=== PATIENT | female | born 1955 | race Caucasian/White ===

== ENCOUNTER 2017-07-14 10:22 | Inpatient (IN) ==
[2017-07-14] MEDS ORDERED: Ipratropium/Albuterol Neb 3 ML IH ONE (10:25)
--- NOTE | 2017-07-14 10:29 | Emergency Department Note ---
Disposition Clinical Impression: Congestive heart failure Qualifiers: Congestive heart failure type: unspecified Congestive heart failure chronicity : acute on chronic Qualified Code(s): I50.9 - Heart failure, unspecified Dyspnea Qualifiers: Dyspnea type: unspecified Qualified Code(s): R06.00 - Dyspnea, unspecified Disposition: Admitted As Inpatient Condition: Fair Referrals: Jimy Fitzgerald MD [Primary Care Provider] - Forms: ED Satisfaction Letter Time of Disposition: 12:01 SOB HPI - General Chief Complaint: ED Shortness of Breath/Dyspnea Stated Complaint: FAVIAN, shoulder pain Time Seen by Provider: 07/14/17 10:25 Source: patient, EMS Mode of arrival: EMS Limitations: no limitations Nursing Notes Reviewed: Yes Vital Signs Reviewed: Yes - History of Present Illness 62-year-old who comes in complaining of increasing shortness of breath. She is at the [facility] and uses inhalers been using her rescue inhaler more often. Patient has a history of chronic respiratory failure and is on oxygen. 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 Severity: moderate Consistency/Duration: constant Improves with: nothing Worsens with: exertion Known history of: other (Chronic respiratory failure) Associated symptoms: Reports: other (Shoulder pain) Treatment prior to arrival: oxygen (Patient's normally on 3 L was turned up to 4.) - Related Data Home Medications Medication Instructions Recorded Confirmed Baclofen [Lioresal] 10 mg PO TID 01/22/15 05/14/16 Diltiazem HCl [Diltiazem 24Hr Cd] 180 mg PO DAILY 01/22/15 05/14/16 Gabapentin [Neurontin] 200 mg PO TID 01/22/15 05/14/16 Acetaminophen [Tylenol] 325 mg PO Q6HR PRN 01/18/16 05/14/16 Albuterol Sulfate [Ventolin Hfa] 2 puff IH Q4H PRN 01/18/16 05/14/16 Lactulose 20 gm PO DAILY PRN 01/18/16 05/14/16 Loratadine [Claritin] 10 mg PO DAILY 01/18/16 05/14/16 Na Phos,M-B/Na Phos,Di-Ba [Pure & 133 ml RC DAILY PRN 01/18/16 05/14/16 Gentle Saline Enema] Pioglitazone HCl/Glimepiride 1 tab PO DAILY 01/18/16 05/14/16 [Duetact 30-2 mg Tablet] Ranitidine HCl [Heartburn Relief] 150 mg PO DAILY 01/18/16 05/14/16 Tamsulosin HCl [Flomax] 0.4 mg PO QPM 01/18/16 05/14/16 Terbinafine HCl [Antifungal] 1 appl TP BID 01/18/16 05/14/16 Glimepiride [Amaryl] 2 mg PO DAILY 05/14/16 05/14/16 Rivaroxaban [Xarelto] 15 mg PO DAILY 05/14/16 05/14/16 Tamsulosin [Flomax] 0.4 mg PO DAILY 05/14/16 05/14/16 Previous Rx's Medication Instructions Recorded Allopurinol [Zyloprim 300 MG] 300 mg PO DAILY tablet 10/08/15 Docusate [Colace] 200 mg PO BID capsule 10/08/15 Furosemide [Lasix] 60 mg PO BIDDIURETIC tablet 10/08/15 FentaNYL PATCH [Duragesic] 25 mcg TD Q72H #3 patch.td72 01/22/16 Sulfamethoxazole/Trimeth DS 1 each PO BID #14 tablet 11/21/16 [Bactrim DS] Allergies Allergy/AdvReac Type Severity Reaction Status Date / Time INDOCET AdvReac Hives Uncoded 11/21/16 00:41 All systems ED: reviewed and negative except as stated. Constitutional: Denies: fever, chills, weakness, weight change Eyes: Denies: eye pain, eye discharge, vision change ENT ED: Denies: ear pain, throat pain, dental pain, hearing loss, epistaxis, congestion, dysphagia Cardiovascular: Reports: chest pain, dyspnea on exertion. Denies: palpitations , edema, syncope Respiratory: Denies: cough, dyspnea, wheezes, hemoptysis, stridor Gastrointestinal: Denies: abdominal pain, nausea, vomiting, diarrhea, constipation, hematemesis, melena, hematochezia Genitourinary: Denies: dysuria, frequency, hematuria, discharge Musculoskeletal: Reports: arthralgia. Denies: back pain, neck pain, myalgia Integumentary: Denies: rash, abrasion, lesions Neurological: Denies: headache, weakness, numbness, paresthesias, confusion, abnormal gait, vertigo Psychiatric: Denies: anxiety, depression, suicidal thoughts, homicidal thoughts , auditory hallucinations, visual hallucinations Endocrine: Denies: fatigue Hematological/Lymphatic: Denies: easy bleeding, easy bruising Allergic/Immunologic: Denies: facial swelling, urticaria Past Medical History - Past Medical History Medical history: Reports: atrial fibrillation, diabetes, GERD, hypertension, pulmonary embolus, renal disease, other Surgical history: Reports: hysterectomy, knee replacement Psychiatric history: Reports: anxiety, depression - Social History Smoking Status: Never smoker Smokeless Tobacco Status: No Alcohol use: Reports: none Drug use: Reports: none Physical Exam - General Limitations: no limitations General appearance: alert, in no apparent distress - Head Head exam: atraumatic, normocephalic, normal inspection - Eye Eye exam: Present: normal appearance, PERRL, EOMI - ENT ENT exam: normal exam, normal oropharynx, mucous membranes moist - Neck Neck exam: Present: normal inspection, full ROM, trachea midline - Chest Chest inspection: Present: normal inspection, symmetric chest wall rise - Respiratory Respiratory exam: Present: normal lung sounds bilaterally - Cardiovascular Cardiovascular exam: Present: regular rate, normal rhythm, normal heart sounds - Abdominal Exam Abdominal exam: Present: soft, Non-Tender. Absent: tenderness, distention, guarding, rebound, rigidity - Extremities Exam Extremities exam: Present: normal inspection, full ROM. Absent: tenderness, pedal edema - Expanded Lower Extremity Exam Gait: observed and normal - Back Exam Back exam: Present: normal inspection, full ROM. Absent: tenderness - Neurological Exam Neurological exam: Present: alert, oriented X3 - Psychiatric Psychiatric exam: Present: normal affect, normal mood - Skin Skin exam: Present: warm, dry, intact, normal color Course - Reevaluation(s) Reevaluation #1: 22-year-old with increasing dyspnea and swelling. Chest x-ray shows CHF. Patient will be admitted for further evaluation and treatment. Time: 12:00 - Consultations Consultation #1: Discussed with Alfredo Montoya, admit Time: 13:08 Vital Signs Temperature 97.9 F 07/14/17 10:25 Pulse Rate 77 07/14/17 10:25 Respiratory Rate 17 07/14/17 10:25 Blood Pressure 154/71 07/14/17 10:25 O2 Sat by Pulse Oximetry 96 07/14/17 10:25 Temperature 97.9 F 07/14/17 10:25 Pulse Rate 77 07/14/17 10:25 Respiratory Rate 17 07/14/17 10:25 Blood Pressure 154/71 07/14/17 10:25 O2 Sat by Pulse Oximetry 99 07/14/17 12:23 Oxygen Delivery Oxygen Delivery Nasal Cannula Shortness of Breath/Dyspnea - Lab Data Result diagrams: 07/14/17 10:43 07/14/17 10:43 Lab Results 07/14/17 07/14/17 07/14/17 Range/Units 10:43 10:43 10:43 WBC 5.8 (4.3-11.1) K/mcL RBC 3.82 (3.82-4.97) M/mcL Hgb 11.1 L (11.5-15.4) g/dL Hct 37.5 (35.3-44.9) % MCV 98.2 (83.0-100.0) fL MCH 29.1 (28.0-33.3) pg MCHC 29.6 L (31.6-35.5) g/dL RDW 15.0 H (11.5-14.5) % Plt Count 273 (140-400) K/mcL MPV 10.7 (9.4-12.4) fL Immature Gran % 1.6 (0-4) % Seg Neutrophils % 52.6 % Lymphocytes % 32.5 % Monocytes % 8.2 % Eosinophils % 4.2 % Basophils % 0.9 % Neutrophils # 3.0 (1.6-8.9) K/mcL Lymphocytes # 1.9 (0.6-4.6) K/mcL Monocytes # 0.5 (0.0-1.3) K/mcL Eosinophils # 0.2 (0.0-0.6) K/mcL Basophils # 0.1 (0.0-0.2) K/mcL ABG pH (7.32-7.45) pH Units ABG pCO2 (35-45) mmHg ABG pO2 (85-104) mmHg ABG HCO3 (21-27) mEq/L ABG Total CO2 (20-26) mEq/L ABG O2 Saturation (95-98) % ABG Base Excess (-2 to 3) mEq/L Sodium 130 L (136-145) mEq/L Potassium 5.4 H (3.5-5.1) mEq/L Chloride 88 L (98-107) mEq/L Carbon Dioxide 41 H* (23-29) mEq/L BUN 27 H (8-23) mg/dL Creatinine 1.05 (0.60-1.20) mg/dL Est GFR ( Amer) > 60 (> 60) Est GFR (Non-Af Amer) 53 L (> 60) BUN/Creatinine Ratio 26 (6-26) Glucose 240 H (70-105) mg/dL Calculated Osmolality 283 (280-300) Lactic Acid 0.7 (0.5-2.2) mmol/L Calcium 8.9 (8.6-10.3) mg/dL Troponin I (< 0.04) ng/mL B-Natriuretic Peptide (Less than 100) pg/mL Person Notif of Crit 07/14/17 07/14/17 07/14/17 Range/Units 10:43 10:43 12:28 WBC (4.3-11.1) K/mcL RBC (3.82-4.97) M/mcL Hgb (11.5-15.4) g/dL Hct (35.3-44.9) % MCV (83.0-100.0) fL MCH (28.0-33.3) pg MCHC (31.6-35.5) g/dL RDW (11.5-14.5) % Plt Count (140-400) K/mcL MPV (9.4-12.4) fL Immature Gran % (0-4) % Seg Neutrophils % % Lymphocytes % % Monocytes % % Eosinophils % % Basophils % % Neutrophils # (1.6-8.9) K/mcL Lymphocytes # (0.6-4.6) K/mcL Monocytes # (0.0-1.3) K/mcL Eosinophils # (0.0-0.6) K/mcL Basophils # (0.0-0.2) K/mcL ABG pH 7.25 L (7.32-7.45) pH Units ABG pCO2 100 H* (35-45) mmHg ABG pO2 78 L (85-104) mmHg ABG HCO3 44 H (21-27) mEq/L ABG Total CO2 47 H (20-26) mEq/L ABG O2 Saturation 92 L (95-98) % ABG Base Excess 12 H (-2 to 3) mEq/L Sodium (136-145) mEq/L Potassium (3.5-5.1) mEq/L Chloride (98-107) mEq/L Carbon Dioxide (23-29) mEq/L BUN (8-23) mg/dL Creatinine (0.60-1.20) mg/dL Est GFR ( Amer) (> 60) Est GFR (Non-Af Amer) (> 60) BUN/Creatinine Ratio (6-26) Glucose (70-105) mg/dL Calculated Osmolality (280-300) Lactic Acid (0.5-2.2) mmol/L Calcium (8.6-10.3) mg/dL Troponin I < 0.03 (< 0.04) ng/mL B-Natriuretic Peptide 261 H (Less than 100) pg/mL Person Notif of Ale GALLO - EKG Data EKG attestation: Yes I reviewed and interpreted this EKG. EKG shows normal: Reports: sinus rhythm Rate: Reports: normal Rhythm: Reports: NSR Interpretation: Reports: no acute changes, nonspecific ST-T wave changes
[2017-07-14 10:53] LABS: Basophils # 0.1 K/mcL (0.0-0.2); Basophils % 0.9 %; Eosinophils # 0.2 K/mcL (0.0-0.6); Eosinophils % 4.2 %; Hematocrit 37.5 % (35.3-44.9); Hemoglobin 11.1 g/dL (11.5-15.4); Immature Granulocytes % 1.6 % (0-4); Lymphocytes # 1.9 K/mcL (0.6-4.6); Lymphocytes % 32.5 %; Mean Corpuscular HGB Conc 29.6 g/dL (31.6-35.5); Mean Corpuscular Hemoglobin 29.1 pg (28.0-33.3); Mean Corpuscular Volume 98.2 fL (83.0-100.0); Mean Platelet Volume 10.7 fL (9.4-12.4); Monocytes # 0.5 K/mcL (0.0-1.3); Monocytes % 8.2 %; Platelet Count 273 K/mcL (140-400); Red Blood Count 3.82 M/mcL (3.82-4.97); Segmented Neutrophils % 52.6 %
[2017-07-14 11:17] LABS: BUN/Creatinine Ratio 26 (6-26); Blood Urea Nitrogen 27 mg/dL (8-23); Calcium 8.9 mg/dL (8.6-10.3); Carbon Dioxide 41 mEq/L (23-29); Chloride 88 mEq/L (98-107); Glucose 240 mg/dL (70-105); Osmolality,Calculated 283 (280-300); Potassium 5.4 mEq/L (3.5-5.1); Sodium 130 mEq/L (136-145); eGFR For African Americans > 60 (> 60); eGFR For Non-African Americans 53 (> 60)
[2017-07-14] MEDS ORDERED: Furosemide 40 MG/4 ML VIAL IVP ONE (11:59)
[2017-07-14 12:34] LABS: ABG Base Excess 12 mEq/L (-2 to 3); ABG HCO3 44 mEq/L (21-27); ABG Oxygen Saturation 92 % (95-98); ABG PCO2 100 mmHg (35-45); ABG PH 7.25 pH Units (7.32-7.45); ABG PO2 78 mmHg (85-104); ABG TCO2 47 mEq/L (20-26)
--- NOTE | 2017-07-14 14:47 | Internal Med History&Physical ---
Date of Encounter: 07/14/17 Time of Encounter: 14:00 Assessment and Plan (1) Acute on chronic respiratory failure with hypoxia and hypercapnia Current visit: Yes Status: Acute -Patient reports of chronic O2 respiratory failure usually on 3-5 L -PH on admission was 7.25, CO2 100 and O2 78 -Will continue BiPAP initiated in the ER and monitor ABGs. (2) Congestive heart failure Current visit: Yes Status: Acute -Patient reported of shortness of breath for approximately one week in addition to generalized increased swelling (upper/lower extremity). -The physician at the [facility] increased Lasix from 60 twice daily to 80 twice daily with no improvement in symptoms -In the ER, patient was found to have vascular congestion on chest x-ray in addition to elevated BNP. -Echocardiogram on 01/2016 showed LVEF grossly low normal at 50% of atypical subjective motion consistent of unclear etiology in addition there is also moderate pulmonary hypertension and mild aortic sclerosis suggested by Doppler with an estimated RV SP of 59 mmHG. -Will continue IV diuresis and order echocardiogram; will also discontinue pioglitazone/glimipiride Qualifiers: Congestive heart failure type: unspecified Congestive heart failure chronicity: acute on chronic Qualified Code(s): I50.9 - Heart failure, unspecified (3) DM renal manif type II, uncontrolled Current visit: No Status: Acute -Blood glucose 240 on admission -Will discontinue pioglitazone/glimipiride due to exacerbation of heart failure above. 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: with keno terminal operator use Chronic kidney disease stage: stage 3 (moderate) Qualified Code(s): E11.22 - Type 2 diabetes mellitus with diabetic chronic kidney disease; E11.65 - Type 2 diabetes mellitus with hyperglycemia; N18.3 - Chronic kidney disease, stage 3 (moderate) ; Z79.4 - long-term (current) use of insulin (4) NICOL (obstructive sleep apnea) Current visit: No Status: Acute -Will continue BiPAP daily at bedtime (5) History of pulmonary embolism Current visit: No Status: Chronic -Will continue Xarelto (6) Morbid obesity with BMI of 70 and over, adult Current visit: No Status: Acute -Patient is bedbound due to morbid obesity -Lifestyle modifications (7) DVT prophylaxis Current visit: No Status: Acute -On Xarelto as above Internal Medicine - H&P: HPI Chief complaint: Shortness of breath Admitted From: Long-term Nursing Facility Plans for Post Hospital Care: Transfer Nursing Home Care History of present illness: Patient is a 62-year-old female with past medical history significant for heart failure, atrial fibrillation, chronic respiratory failure, hypertension, diabetes and morbid obesity who presented to the ER on 07/14/17 due to shortness of breath. Patient reports of shortness of breath for approximately one week in addition to generalized increased swelling (upper/lower extremity). The physician at the [facility] increased Lasix from 60 twice daily to 80 twice daily with no improvement in symptoms so was sent to the ER for further evaluation. Patient reports of taking Lasix daily as prescribed and has been adherent to [facility] diet/food and has limited her fast food. In the ER, patient was found to have vascular congestion on chest x-ray in addition to elevated BNP. Patient was also found to be an acute on chronic hypoxic/hypercapnic respiratory failure. Patient was given 40 mg of Lasix IV 1 in the ER in addition to a treatment of DuoNeb and was started on BiPAP. Patient will be admitted to the medical surgical floor for acute on chronic heart failure and acute on chronic hypoxic/hypercapnic respiratory failure. Past Med Surg Social Fam HX - Past Medical History Medical history: atrial fibrillation, diabetes, GERD, hypertension, pulmonary embolus, renal disease, other Psychiatric history: anxiety, depression - Past Surgical History Surgical History: hysterectomy, knee replacement - Social History Smoking Status: Never smoker Smokeless Tobacco Status: No Alcohol use: none Drug use: none - Family History Father Hx Family Cardiac Disorders: Yes ([place]) Hx Family Respiratory Disorders: Yes (Emphysema) Hx Family Cancer: No Hx Family GI Disorders: No Hx Family Endocrine Disorder: No Hx Family Neuromuscular Disorders: No Hx Family Neurologic Disorders: No Hx Family HEENT Disorders: No Hx Family Autoimmune Disorders: No Mother Hx Family Cardiac Disorders: No Hx Family Respiratory Disorders: Yes (Lung cancer) Hx Family Cancer: Yes (Small cell carcinoma) Hx Family GI Disorders: No Hx Family Endocrine Disorder: No Hx Family Neuromuscular Disorders: No Hx Family Neurologic Disorders: No Hx Family HEENT Disorders: No Hx Family Autoimmune Disorders: No Internal Medicine - H&P: Meds Baclofen [Lioresal] 10 mg PO TID 01/22/15 [History] Diltiazem HCl [Diltiazem 24Hr Cd] 180 mg PO DAILY 01/22/15 [History] Gabapentin [Neurontin] 200 mg PO TID 01/22/15 [History] Allopurinol [Zyloprim 300 MG] 300 mg PO DAILY tablet 10/08/15 [Rx] Docusate [Colace] 200 mg PO BID capsule 10/08/15 [Rx] Furosemide [Lasix] 60 mg PO BIDDIURETIC tablet 10/08/15 [Rx] Acetaminophen [Tylenol] 325 mg PO Q6HR PRN 01/18/16 [History] Albuterol Sulfate [Ventolin Hfa] 2 puff IH Q4H PRN 01/18/16 [History] Lactulose 20 gm PO DAILY PRN 01/18/16 [History] Loratadine [Claritin] 10 mg PO DAILY 01/18/16 [History] Pioglitazone HCl/Glimepiride [Duetact 30-2 mg Tablet] 1 tab PO DAILY 01/18/16 [ History] Ranitidine HCl [Heartburn Relief] 150 mg PO DAILY 01/18/16 [History] FentaNYL PATCH [Duragesic] 25 mcg TD Q72H #3 patch.td72 01/22/16 [Rx] Rivaroxaban [Xarelto] 15 mg PO DAILY 05/14/16 [History] Tamsulosin [Flomax] 0.4 mg PO DAILY 05/14/16 [History] 3 Allergy/AdvReac Type Severity Reaction Status Date / Time INDOCET AdvReac Hives Uncoded 11/21/16 00:41 All Systems PM: A 10-system review of systems was performed and is negative for pertinent findings except as documented above in the HPI. - Constitutional Vitals: Temp Pulse Resp BP Pulse Ox 97.7 F 64 20 136/68 94 07/14/17 14:32 07/14/17 14:32 07/14/17 14:32 07/14/17 14:32 07/14/17 14:32 General appearance: Present: A&O X 3, no acute distress, obese - Head Head exam: Present: atraumatic, normocephalic - Eye Eye exam: Present: EOMI. Absent: conjunctival injection - ENT ENT exam: Present: mucous membranes moist - Respiratory Respiratory exam: Absent: accessory muscle use, respiratory distress, wheezes - Cardiovascular Cardiovascular exam: Present: RRR, +S1, +S2. Absent: diastolic murmur, gallop, rubs, systolic murmur - GI/Abdominal GI/Abdominal exam: Present: normal bowel sounds (Obese) - Extremities Exam Extremities exam: Present: pedal edema - Expanded Lower Extremities Exam Upper Leg exam: Present: swelling Lower Leg exam: Present: swelling Ankle exam: Present: swelling Foot/Toe exam: Present: swelling - Neurological Exam Neurological exam: Present: CN II-XII intact - Psychiatric Psychiatric exam: Present: normal mood - Skin Additional comments: Fluid leakage and bilateral lower extremities with water blisters Internal Med - H&P Results - Labs CBC & Chem 7: 07/14/17 10:43 07/14/17 10:43
[2017-07-14] MEDS ORDERED: Naloxone 0.4 MG/ML INJ IVP PRN (15:01)
[2017-07-14] MEDS ORDERED: Lactulose 200 GM/300 ML (for enema) RC PRN (15:13)
[2017-07-14] MEDS ORDERED: D5% in Water 1,000 ML IVC PRN (15:15)
[2017-07-14] MEDS ORDERED: Dextrose Gel 15 GM/37.5 ML TUBE PO PRN ×2 (15:15)
[2017-07-14] MEDS ORDERED: *HR* Dextrose 50 % in Water (Syg) 50 ML SYRINGE IVP PRN (15:15)
[2017-07-14] MEDS ORDERED: Lactulose 200 GM, Sodium Chloride IRRigation 700 ML RC PRN (15:38)
[2017-07-14] MEDS: *HR* FentaNYL PATCH 25 MCG PATCH TD SCH (17:01)
[2017-07-14] MEDS: Insulin LISPRO 300 UNITS/3 ML VIAL SQ SCH (18:08)
[2017-07-14 18:54] LABS: ABG Base Excess 11 mEq/L (-2 to 3); ABG HCO3 42 mEq/L (21-27); ABG Oxygen Saturation 91 % (95-98); ABG PCO2 93 mmHg (35-45); ABG PH 7.27 pH Units (7.32-7.45); ABG PO2 75 mmHg (85-104); ABG TCO2 45 mEq/L (20-26)
[2017-07-14] MEDS: Acetaminophen 325 MG TABLET PO PRN (19:49)
[2017-07-14] MEDS: Baclofen 10 MG TABLET PO SCH (19:49)
[2017-07-14] MEDS: Gabapentin 100 MG CAPSULE PO SCH (19:50)
[2017-07-14] MEDS ORDERED: Furosemide 80 MG in 0.9 % Sodium Chloride 50 ML IVPB SCH (21:00)
[2017-07-14] MEDS ORDERED: Ketorolac 30 MG/ML VIAL IVP ONE (21:48)
[2017-07-15 00:47] LABS: Basophils % 0.6 %; Eosinophils # 0.2 K/mcL (0.0-0.6); Eosinophils % 3.4 %; Hematocrit 36.9 % (35.3-44.9); Immature Granulocytes % 1.3 % (0-4); Lymphocytes # 2.5 K/mcL (0.6-4.6); Lymphocytes % 34.8 %; Mean Corpuscular HGB Conc 29.8 g/dL (31.6-35.5); Mean Corpuscular Hemoglobin 29.5 pg (28.0-33.3); Mean Corpuscular Volume 98.9 fL (83.0-100.0); Mean Platelet Volume 11.1 fL (9.4-12.4); Monocytes # 0.5 K/mcL (0.0-1.3); Monocytes % 7.6 %; Neutrophils # 3.7 K/mcL (1.6-8.9); Platelet Count 264 K/mcL (140-400); Red Blood Count 3.73 M/mcL (3.82-4.97); Red Cell Distribution Width 14.9 % (11.5-14.5); Segmented Neutrophils % 52.3 %
[2017-07-15 01:18] LABS: VBG HCO3 41 mEq/L (21-27); VBG PCO2 74 mmHg (41-51); VBG PH 7.35 pH Units (7.32-7.42); VBG PO2 184 mmHg (25-50)
[2017-07-15 01:25] LABS: BUN/Creatinine Ratio 28 (6-26); Blood Urea Nitrogen 30 mg/dL (8-23); Calcium 9.1 mg/dL (8.6-10.3); Carbon Dioxide 41 mEq/L (23-29); Chloride 87 mEq/L (98-107); Glucose 215 mg/dL (70-105); Osmolality,Calculated 283 (280-300); Potassium 5.3 mEq/L (3.5-5.1); Sodium 130 mEq/L (136-145); eGFR For African Americans > 60 (> 60); eGFR For Non-African Americans 52 (> 60)
[2017-07-15] MEDS: Acetaminophen 325 MG TABLET PO PRN ×4 (02:38→23:32)
[2017-07-15] MEDS ORDERED: Perflutren Lipid Microsphere 1.3 ML in 0.9 % Sodium Chloride 8.7 ML IVP ONE (07:11)
[2017-07-15] MEDS: Famotidine 20 MG TABLET PO SCH (09:30)
[2017-07-15] MEDS: Baclofen 10 MG TABLET PO SCH ×3 (09:30→23:25)
[2017-07-15] MEDS: *HR* Rivaroxaban 15 MG TABLET PO SCH (09:30)
[2017-07-15] MEDS: Gabapentin 100 MG CAPSULE PO SCH ×3 (09:30→23:25)
[2017-07-15] MEDS: Insulin LISPRO 300 UNITS/3 ML VIAL SQ SCH ×4 (09:31→23:26)
[2017-07-15] MEDS: Diltiazem CD (24hr) 180 MG CAPSULE PO SCH (09:31)
[2017-07-15] MEDS: Loratadine 10 MG TABLET PO SCH (09:31)
[2017-07-15] MEDS: Furosemide 40 MG/4 ML VIAL IVP SCH ×2 (09:34→17:30)
--- NOTE | 2017-07-15 13:08 | Internal Med Progress Note ---
Date of Encounter: 07/15/17 Time of Encounter: 12:46 - Assessment and plan (1) Acute on chronic respiratory failure with hypoxia and hypercapnia Current Visit: Yes Status: Acute Assessment and plan: likely multifactorial (Obesity hypoventilation syndrome, CHF decompensation) will continue bipap support, compliance education provided IV diuresis monitor I/Os, daily weights fluid restriction diet will continue to closely monitor (2) CHF exacerbation Current Visit: Yes Status: Acute Assessment and plan: 2D echo reported LVEF of 50% with moderate LV diastolic dysfunction moderately dilated LV mild MR, Mild TR started on lisinopril 2.5mg PO qd will closely monitor BP continue IV diuresis Qualifiers: Congestive heart failure type: diastolic Qualified Code(s): I50.33 - Acute on chronic diastolic (congestive) heart failure (3) DM renal manif type II, uncontrolled Current Visit: No Status: Chronic Assessment and plan: continue sliding scale insulin algorithm monitor FS and BG ADA diet 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 Chronic kidney disease stage: stage 3 (moderate) Qualified Code(s): E11.22 - Type 2 diabetes mellitus with diabetic chronic kidney disease; E11.65 - Type 2 diabetes mellitus with hyperglycemia; N18.3 - Chronic kidney disease, stage 3 (moderate) ; Z79.4 - senior living (current) use of insulin (4) DVT prophylaxis Current Visit: No Status: Acute Assessment and plan: on Xarelto (5) History of pulmonary embolism Current Visit: No Status: Chronic Assessment and plan: continue xarelto (6) Hyperkalemia Current Visit: No Status: Acute Assessment and plan: improved from previous day no EKG changes reported will closely monitor (7) Hypoventilation associated with obesity syndrome Current Visit: No Status: Chronic (8) Morbid obesity with BMI of 70 and over, adult Current Visit: No Status: Chronic (9) NICOL (obstructive sleep apnea) Current Visit: No Status: Chronic - Subjective Interval history: Patient is a 62y/o female admitted for acute on chronic respiratory failure with hypoxia and hypercapnia, and CHF exacerbation pt seen and examined at bedside. Pt is bedbound at baseline due to morbidly obese body habitus She is noted to have worsening of hypercapnia and is noncompliant with bipap support - Constitutional Vitals: Temp Pulse Resp BP Pulse Ox 97.9 F 74 16 156/75 93 01/31/18 12:06 07/15/17 12:06 07/15/17 12:06 07/15/17 12:06 07/15/17 12:06 General appearance: Present: A&O X 3, morbidly obese, no acute distress, answers questions appropriately - Head Head exam: Present: atraumatic, normocephalic - Eye Eye exam: Present: conjuntiva pink, sclera anicteric - Respiratory Respiratory exam: Present: decreased breath sounds. Absent: wheezes - Cardiovascular Cardiovascular exam: Present: RRR, +S1, +S2 - GI/Abdominal GI/Abdominal exam: Present: normal bowel sounds, soft, no peritoneal signs. Absent: distended, tenderness - Extremities Exam Extremities exam: Present: warm, radial pulses palpable and symmetrical. Absent : calf tenderness (bilateral LE chronic venous stasis ) - Neurological Exam Neurological exam: Present: alert, oriented X3 - Psychiatric Psychiatric exam: Present: normal affect, normal mood Internal Medicine: Result - Labs CBC & Chem 7: 07/15/17 00:21 07/15/17 00:21 Labs: Short CBC 07/15/17 Range/Units 00:21 WBC 7.1 (4.3-11.1) K/mcL Hgb 11.0 L (11.5-15.4) g/dL Hct 36.9 (35.3-44.9) % Plt Count 264 (140-400) K/mcL Neutrophils # 3.7 (1.6-8.9) K/mcL BMP 07/15/17 00:21 Sodium 130 L Potassium 5.3 H Chloride 87 L Carbon Dioxide 41 H* BUN 30 H Creatinine 1.07 Glucose 215 H Calcium 9.1 - ABG Interpretation ABG results: ABG ABG pH 7.27 pH Units (7.32-7.45) L 07/14/17 18:48 ABG pCO2 93 mmHg (35-45) H* 07/14/17 18:48 ABG pO2 75 mmHg (85-104) L 07/14/17 18:48 ABG O2 Saturation 91 % (95-98) L 07/14/17 18:48 - Impressions Impressions Echocardiogram 07/15/17 15:11 Impressions: Technically challenging due to body habitus. LVEF 50%. Definity echo contrast was used. Moderate left ventricular diastolic dysfunction. Moderately dilated left ventricle. RV is suboptimally visualized. Mild mitral regurgitation. Mild tricuspid regurgitation. At least mild pulmonary hypertension by TR gradient, 39 mmHg. The IVC is not well evaluated. Left Ventricular Wall Motion: Rest Echo Findings All wall segments showed normal motion. Findings: Study Quality * Technically challenging due to body habitus. ECG Findings * Normal sinus rhythm. Left Ventricle * LVEF 50%. * Moderate left ventricular diastolic dysfunction. * Definity echo contrast was used. * Moderately dilated left ventricle. Right Ventricle * RV is suboptimally visualized. Left Atrium * Normal left atrial size. Right Atrium * Normal right atrial size. Mitral Valve * Normal mitral valve structure. * No mitral stenosis. * Mild mitral regurgitation. Aortic Valve * No aortic regurgitation. * Aortic valve not well visualized. * No aortic stenosis. Tricuspid Valve * Tricuspid valve not well visualized. * Mild tricuspid regurgitation. Pulmonic Valve * Pulmonic valve is not well visualized. * No pulmonic stenosis. * No pulmonic regurgitation. Pulmonary Artery * Pulmonary artery not well visualized. Aorta * Not well visualized. Pericardium * There is no pericardial effusion present. Interatrial Septum * Interatrial septum not well evaluated. IVC * The IVC is not well evaluated. Consult Discharge Plan - Plan Referrals: Jimy Fitzgerald MD [Primary Care Provider] -
--- NOTE | 2017-07-15 14:06 | Electrocardiograph Report ---
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
[2017-07-16 04:47] LABS: Basophils % 0.7 %; Eosinophils # 0.2 K/mcL (0.0-0.6); Eosinophils % 3.7 %; Hematocrit 32.8 % (35.3-44.9); Hemoglobin 9.7 g/dL (11.5-15.4); Immature Granulocytes % 0.7 % (0-4); Lymphocytes # 2.1 K/mcL (0.6-4.6); Lymphocytes % 34.7 %; Mean Corpuscular HGB Conc 29.6 g/dL (31.6-35.5); Mean Corpuscular Volume 98.2 fL (83.0-100.0); Mean Platelet Volume 10.9 fL (9.4-12.4); Monocytes # 0.5 K/mcL (0.0-1.3); Monocytes % 8.6 %; Neutrophils # 3.1 K/mcL (1.6-8.9); Platelet Count 240 K/mcL (140-400); Red Blood Count 3.34 M/mcL (3.82-4.97); Red Cell Distribution Width 14.7 % (11.5-14.5); Segmented Neutrophils % 51.6 %
[2017-07-16 05:16] LABS: BUN/Creatinine Ratio 31 (6-26); Blood Urea Nitrogen 31 mg/dL (8-23); Calcium 8.8 mg/dL (8.6-10.3); Carbon Dioxide 42 mEq/L (23-29); Chloride 89 mEq/L (98-107); Glucose 167 mg/dL (70-105); Osmolality,Calculated 290 (280-300); Phosphorous 4.2 mg/dL (2.7-4.5); Potassium 4.9 mEq/L (3.5-5.1); Sodium 135 mEq/L (136-145); eGFR For African Americans > 60 (> 60); eGFR For Non-African Americans 56 (> 60)
[2017-07-16 05:32] LABS: ABG Base Excess 14 mEq/L (-2 to 3); ABG HCO3 45 mEq/L (21-27); ABG Oxygen Saturation 88 % (95-98); ABG PCO2 92 mmHg (35-45); ABG PH 7.29 pH Units (7.32-7.45); ABG PO2 66 mmHg (85-104); ABG TCO2 47 mEq/L (20-26)
[2017-07-16] MEDS: Diltiazem CD (24hr) 180 MG CAPSULE PO SCH (09:01)
[2017-07-16] MEDS: Furosemide 40 MG/4 ML VIAL IVP SCH ×2 (09:01→16:25)
[2017-07-16] MEDS: Gabapentin 100 MG CAPSULE PO SCH ×3 (09:01→20:24)
[2017-07-16] MEDS: Loratadine 10 MG TABLET PO SCH (09:02)
[2017-07-16] MEDS: *HR* Rivaroxaban 15 MG TABLET PO SCH (09:02)
[2017-07-16] MEDS: Baclofen 10 MG TABLET PO SCH ×3 (09:02→20:25)
[2017-07-16] MEDS: Famotidine 20 MG TABLET PO SCH (09:02)
--- NOTE | 2017-07-16 09:13 | Internal Med Progress Note ---
Date of Encounter: 07/16/17 Time of Encounter: 08:35 - Assessment and plan (1) Acute on chronic respiratory failure with hypoxia and hypercapnia Current Visit: Yes Status: Acute Assessment and plan: likely multifactorial (Obesity hypoventilation syndrome, CHF decompensation) will continue bipap support, compliance education provided, Bipap support all day with breaks for meals and bipap at bedtime continue IV diuresis monitor I/Os, daily weights fluid restriction diet will continue to closely monitor (2) CHF exacerbation Current Visit: Yes Status: Acute Assessment and plan: 2D echo reported LVEF of 50% with moderate LV diastolic dysfunction moderately dilated LV mild MR, Mild TR continue Lisinopril 2.5mg PO qd will closely monitor BP continue IV diuresis Qualifiers: Congestive heart failure type: diastolic Qualified Code(s): I50.33 - Acute on chronic diastolic (congestive) heart failure (3) DM renal manif type II, uncontrolled Current Visit: No Status: Chronic Assessment and plan: continue sliding scale insulin algorithm monitor FS and BG ADA diet 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 mellitus terminal operator insulin use: with terminal operator use Chronic kidney disease stage: stage 3 (moderate) Qualified Code(s): E11.22 - Type 2 diabetes mellitus with diabetic chronic kidney disease; E11.65 - Type 2 diabetes mellitus with hyperglycemia; N18.3 - Chronic kidney disease, stage 3 (moderate) ; Z79.4 - [facility] (current) use of insulin (4) DVT prophylaxis Current Visit: No Status: Acute Assessment and plan: on Xarelto (5) History of pulmonary embolism Current Visit: No Status: Chronic Assessment and plan: continue xarelto (6) Hyperkalemia Current Visit: No Status: Resolved (7) Hypoventilation associated with obesity syndrome Current Visit: No Status: Chronic (8) Morbid obesity with BMI of 70 and over, adult Current Visit: No Status: Chronic (9) NICOL (obstructive sleep apnea) Current Visit: No Status: Chronic - Subjective Interval history: Patient is a 62y/o female admitted for acute on chronic respiratory failure with hypoxia and hypercapnia, and CHF exacerbation pt seen and examined at bedside. Pt is bedbound at baseline due to morbidly obese body habitus She is noted to have worsening of hypercapnia and remains noncompliant with bipap support I had a detailed discussion with the patient in regards to her advance directives. She became very emotional and states she would like to discuss with her family about her advance directives. Pt to remain full code at this time. Extensive counseling provided in regards to continuation and compliance of bipap support, pt willing to comply at this time Pt moved to [facility] for a bariatric bed - Constitutional Vitals: Temp Pulse Resp BP Pulse Ox 97.9 F 81 16 138/73 99 07/16/17 07:38 07/16/17 07:38 07/16/17 07:38 07/16/17 07:38 07/16/17 07:38 General appearance: Present: A&O X 3, morbidly obese, no acute distress, answers questions appropriately - Head Head exam: Present: atraumatic, normocephalic - Respiratory Respiratory exam: Present: decreased breath sounds. Absent: respiratory distress, wheezes - Cardiovascular Cardiovascular exam: Present: RRR, +S1, +S2. Absent: diastolic murmur, gallop, rubs, systolic murmur - GI/Abdominal GI/Abdominal exam: Present: normal bowel sounds, soft, no peritoneal signs. Absent: distended, tenderness - Extremities Exam Extremities exam: Present: warm, radial pulses palpable and symmetrical ( bilateral chronic venous stasis in lower extremities ). Absent: calf tenderness - Neurological Exam Neurological exam: Present: alert, oriented X3 - Psychiatric Psychiatric exam: Present: normal affect, normal mood Internal Medicine: Result - Labs CBC & Chem 7: 07/16/17 04:06 07/16/17 04:06 Labs: Short CBC 07/16/17 Range/Units 04:06 WBC 5.9 (4.3-11.1) K/mcL Hgb 9.7 L (11.5-15.4) g/dL Hct 32.8 L (35.3-44.9) % Plt Count 240 (140-400) K/mcL Neutrophils # 3.1 (1.6-8.9) K/mcL BMP 07/16/17 04:06 Sodium 135 L Potassium 4.9 Chloride 89 L Carbon Dioxide 42 H* BUN 31 H Creatinine 1.00 Glucose 167 H Calcium 8.8 - ABG Interpretation ABG results: ABG ABG pH 7.29 pH Units (7.32-7.45) L 07/16/17 05:25 ABG pCO2 92 mmHg (35-45) H* 07/16/17 05:25 ABG pO2 66 mmHg (85-104) L 07/16/17 05:25 ABG O2 Saturation 88 % (95-98) L 07/16/17 05:25 - Impressions Impressions Echocardiogram 07/15/17 15:11 Impressions: Technically challenging due to body habitus. LVEF 50%. Definity echo contrast was used. Moderate left ventricular diastolic dysfunction. Moderately dilated left ventricle. RV is suboptimally visualized. Mild mitral regurgitation. Mild tricuspid regurgitation. At least mild pulmonary hypertension by TR gradient, 39 mmHg. The IVC is not well evaluated. Left Ventricular Wall Motion: Rest Echo Findings All wall segments showed normal motion. Findings: Study Quality * Technically challenging due to body habitus. ECG Findings * Normal sinus rhythm. Left Ventricle * LVEF 50%. * Moderate left ventricular diastolic dysfunction. * Definity echo contrast was used. * Moderately dilated left ventricle. Right Ventricle * RV is suboptimally visualized. Left Atrium * Normal left atrial size. Right Atrium * Normal right atrial size. Mitral Valve * Normal mitral valve structure. * No mitral stenosis. * Mild mitral regurgitation. Aortic Valve * No aortic regurgitation. * Aortic valve not well visualized. * No aortic stenosis. Tricuspid Valve * Tricuspid valve not well visualized. * Mild tricuspid regurgitation. Pulmonic Valve * Pulmonic valve is not well visualized. * No pulmonic stenosis. * No pulmonic regurgitation. Pulmonary Artery * Pulmonary artery not well visualized. Aorta * Not well visualized. Pericardium * There is no pericardial effusion present. Interatrial Septum * Interatrial septum not well evaluated. IVC * The IVC is not well evaluated. Consult Discharge Plan - Plan Referrals: Jimy Fitzgerald MD [Primary Care Provider] -
[2017-07-16] MEDS: Insulin LISPRO 300 UNITS/3 ML VIAL SQ SCH ×4 (10:19→20:32)
[2017-07-16 11:41] LABS: Adenovirus Not Detected (Not Detect); Bordetella Pertussis Not Detected (Not Detect); Chlamydophila pneumoniae Not Detected (Not Detect); Coronavirus 229E Not Detected (Not Detect); Coronavirus HKU1 Not Detected (Not Detect); Coronavirus NL63 Not Detected (Not Detect); Coronavirus OC43 Not Detected (Not Detect); Human Metapneumovirus Not Detected (Not Detect); Human Rhinovirus/Enterovirus Not Detected (Not Detect); Influenza A Subtype 2009 H1 Not Detected (Not Detect); Influenza A Untypeable Not Detected (Not Detect); Influenza B Not Detected (Not Detect); Mycoplasma pneumoniae Not Detected (Not Detect); Parainfluenza Virus 1 Not Detected (Not Detect); Parainfluenza Virus 2 Not Detected (Not Detect); Parainfluenza Virus 3 Not Detected (Not Detect); Parainfluenza Virus 4 Not Detected (Not Detect); Respiratory Syncytial Virus Not Detected (Not Detect)
[2017-07-16] MEDS: Acetaminophen 325 MG TABLET PO PRN (11:53)
[2017-07-17] MEDS: Acetaminophen 325 MG TABLET PO PRN ×3 (00:51→15:59)
[2017-07-17 05:29] LABS: ABG Base Excess 18 mEq/L (-2 to 3); ABG HCO3 47 mEq/L (21-27); ABG Oxygen Saturation 75 % (95-98); ABG PCO2 88 mmHg (35-45); ABG PH 7.34 pH Units (7.32-7.45); ABG PO2 46 mmHg (85-104); ABG TCO2 50 mEq/L (20-26); Blood Gas Modality BiLevel
[2017-07-17 05:53] LABS: ABG Base Excess 18 mEq/L (-2 to 3); ABG HCO3 48 mEq/L (21-27); ABG Oxygen Saturation 96 % (95-98); ABG PCO2 89 mmHg (35-45); ABG PH 7.34 pH Units (7.32-7.45); ABG PO2 90 mmHg (85-104); ABG TCO2 51 mEq/L (20-26)
[2017-07-17 06:22] LABS: Calcium 9.3 mg/dL (8.6-10.3); Phosphorous 4.3 mg/dL (2.7-4.5)
[2017-07-17 06:25] LABS: Basophils % 0.6 %; Eosinophils # 0.2 K/mcL (0.0-0.6); Eosinophils % 2.8 %; Hematocrit 36.4 % (35.3-44.9); Immature Granulocytes % 0.6 % (0-4); Lymphocytes # 3.4 K/mcL (0.6-4.6); Lymphocytes % 47.5 %; Mean Corpuscular HGB Conc 30.2 g/dL (31.6-35.5); Mean Corpuscular Hemoglobin 29.5 pg (28.0-33.3); Mean Corpuscular Volume 97.6 fL (83.0-100.0); Mean Platelet Volume 11.4 fL (9.4-12.4); Monocytes # 0.6 K/mcL (0.0-1.3); Neutrophils # 2.8 K/mcL (1.6-8.9); Platelet Count 258 K/mcL (140-400); Red Blood Count 3.73 M/mcL (3.82-4.97); Red Cell Distribution Width 15.1 % (11.5-14.5); Segmented Neutrophils % 39.5 %
[2017-07-17] MEDS: Insulin LISPRO 300 UNITS/3 ML VIAL SQ SCH ×4 (08:12→21:42)
[2017-07-17] MEDS: Furosemide 40 MG/4 ML VIAL IVP SCH (08:12)
[2017-07-17] MEDS: Loratadine 10 MG TABLET PO SCH (08:13)
[2017-07-17] MEDS: *HR* Rivaroxaban 15 MG TABLET PO SCH (08:13)
[2017-07-17] MEDS: Gabapentin 100 MG CAPSULE PO SCH ×3 (08:14→21:42)
[2017-07-17] MEDS: Famotidine 20 MG TABLET PO SCH (08:14)
[2017-07-17] MEDS: Diltiazem CD (24hr) 180 MG CAPSULE PO SCH (08:14)
[2017-07-17] MEDS: Baclofen 10 MG TABLET PO SCH ×3 (08:14→21:42)
--- NOTE | 2017-07-17 11:55 | Internal Med Progress Note ---
Date of Encounter: 07/17/17 Time of Encounter: 10:40 - Assessment and plan (1) Acute on chronic respiratory failure with hypoxia and hypercapnia Current Visit: Yes Status: Acute Assessment and plan: likely multifactorial (Obesity hypoventilation syndrome, CHF decompensation) will continue bipap support, compliance education provided, Bipap support all day with breaks for meals and bipap at bedtime will switch to PO lasix this evening adding Prednisone 40mg PO qd monitor I/Os, daily weights (highly unlikely that patient's documented weights are accurate) fluid restriction diet will continue to closely monitor (2) CHF exacerbation Current Visit: Yes Status: Acute Assessment and plan: 2D echo reported LVEF of 50% with moderate LV diastolic dysfunction moderately dilated LV mild MR, Mild TR continue Lisinopril 2.5mg PO qd will closely monitor BP continue IV diuresis Qualifiers: Congestive heart failure type: diastolic Qualified Code(s): I50.33 - Acute on chronic diastolic (congestive) heart failure (3) DM renal manif type II, uncontrolled Current Visit: No Status: Chronic Assessment and plan: continue sliding scale insulin algorithm monitor FS and BG ADA diet 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 mellitus usp insulin use: with terminal system operator use Chronic kidney disease stage: stage 3 (moderate) Qualified Code(s): E11.22 - Type 2 diabetes mellitus with diabetic chronic kidney disease; E11.65 - Type 2 diabetes mellitus with hyperglycemia; N18.3 - Chronic kidney disease, stage 3 (moderate) ; Z79.4 - intermediate (current) use of insulin (4) DVT prophylaxis Current Visit: No Status: Acute Assessment and plan: on Xarelto (5) History of pulmonary embolism Current Visit: No Status: Chronic Assessment and plan: continue xarelto (6) Hyperkalemia Current Visit: No Status: Resolved (7) Hypoventilation associated with obesity syndrome Current Visit: No Status: Chronic (8) Morbid obesity with BMI of 70 and over, adult Current Visit: No Status: Chronic (9) NICOL (obstructive sleep apnea) Current Visit: No Status: Chronic - Subjective Interval history: Patient is a 62y/o female admitted for acute on chronic respiratory failure with hypoxia and hypercapnia, and CHF exacerbation pt seen and examined at bedside. Pt is bedbound at baseline due to morbidly obese body habitus Pt seen with niece present at bedside. Pt speaking to social science manager and niece in regards to establishing her POA and then further discuss advance directives. Pt states she has been compliant with her bipap and reports of feeling better compared to previous day. Will switch to PO lasix this evening and add low dose steroids given persistent respiratory distress. Tentative d/c in am if clinically stable. - Constitutional Vitals: Temp Pulse Resp BP Pulse Ox 98.4 F 92 20 128/52 97 07/17/17 11:31 07/17/17 11:31 07/17/17 11:31 07/17/17 11:31 07/17/17 11:31 General appearance: Present: A&O X 3, morbidly obese, no acute distress, answers questions appropriately - Head Head exam: Present: atraumatic, normocephalic - Eye Eye exam: Present: conjuntiva pink, sclera anicteric - Respiratory Respiratory exam: Present: decreased breath sounds. Absent: respiratory distress, wheezes - Cardiovascular Cardiovascular exam: Present: RRR, +S1, +S2. Absent: diastolic murmur, gallop, rubs, systolic murmur - GI/Abdominal GI/Abdominal exam: Present: normal bowel sounds, soft, no peritoneal signs. Absent: distended, tenderness - Extremities Exam Extremities exam: Present: warm, radial pulses palpable and symmetrical (b/l LE chronic venous stasis ). Absent: calf tenderness - Neurological Exam Neurological exam: Present: alert, oriented X3 - Psychiatric Psychiatric exam: Present: normal affect, normal mood Internal Medicine: Result - Labs CBC & Chem 7: 07/17/17 05:42 07/17/17 05:42 Labs: Short CBC 07/17/17 Range/Units 05:42 WBC 7.1 (4.3-11.1) K/mcL Hgb 11.0 L (11.5-15.4) g/dL Hct 36.4 (35.3-44.9) % Plt Count 258 (140-400) K/mcL Neutrophils # 2.8 (1.6-8.9) K/mcL BMP 07/17/17 05:42 Sodium 137 Potassium 5.0 Chloride 90 L Carbon Dioxide 43 H* BUN 35 H Creatinine 1.12 Glucose 195 H Calcium 9.3 - ABG Interpretation ABG results: ABG ABG pH 7.34 pH Units (7.32-7.45) 07/17/17 05:49 ABG pCO2 89 mmHg (35-45) H* 07/17/17 05:49 ABG pO2 90 mmHg (85-104) D 07/17/17 05:49 ABG O2 Saturation 96 % (95-98) 07/17/17 05:49 Consult Discharge Plan - Plan Referrals: Jimy Fitzgerald MD [Primary Care Provider] -
[2017-07-17] MEDS: predniSONE 20 MG TABLET PO SCH (15:57)
[2017-07-17] MEDS: Furosemide 40 MG TABLET PO SCH (16:59)
[2017-07-17] MEDS: *HR* FentaNYL PATCH 25 MCG PATCH TD SCH (16:59)
[2017-07-17] MEDS: *HR* HYDROcodone/Acet 5/325 mg TABLET PO PRN (23:04)
[2017-07-18] MEDS: Acetaminophen 325 MG TABLET PO PRN (02:42)
[2017-07-18 05:32] LABS: Basophils % 0.6 %; Hemoglobin 10.6 g/dL (11.5-15.4); Immature Granulocytes % 0.4 % (0-4); Lymphocytes # 1.3 K/mcL (0.6-4.6); Lymphocytes % 26.3 %; Mean Corpuscular HGB Conc 31.2 g/dL (31.6-35.5); Mean Corpuscular Hemoglobin 29.6 pg (28.0-33.3); Mean Platelet Volume 10.9 fL (9.4-12.4); Monocytes # 0.3 K/mcL (0.0-1.3); Monocytes % 5.1 %; Neutrophils # 3.4 K/mcL (1.6-8.9); Platelet Count 231 K/mcL (140-400); Red Blood Count 3.58 M/mcL (3.82-4.97); Red Cell Distribution Width 14.7 % (11.5-14.5); Segmented Neutrophils % 67.6 %
[2017-07-18 07:58] LABS: BUN/Creatinine Ratio 38 (6-26); Blood Urea Nitrogen 38 mg/dL (8-23); Calcium 9.3 mg/dL (8.6-10.3); Carbon Dioxide 45 mEq/L (23-29); Chloride 91 mEq/L (98-107); Glucose 267 mg/dL (70-105); Magnesium 2.1 mg/dL (1.6-2.6); Osmolality,Calculated 302 (280-300); Potassium 4.6 mEq/L (3.5-5.1); Sodium 137 mEq/L (136-145); eGFR For African Americans > 60 (> 60); eGFR For Non-African Americans 56 (> 60)
[2017-07-18] MEDS: Insulin LISPRO 300 UNITS/3 ML VIAL SQ SCH ×4 (08:57→21:25)
[2017-07-18] MEDS: Furosemide 40 MG TABLET PO SCH ×2 (08:58→21:23)
[2017-07-18] MEDS: predniSONE 20 MG TABLET PO SCH (08:58)
[2017-07-18] MEDS: Baclofen 10 MG TABLET PO SCH ×3 (08:58→21:24)
[2017-07-18] MEDS: Famotidine 20 MG TABLET PO SCH (08:58)
[2017-07-18] MEDS: Loratadine 10 MG TABLET PO SCH (08:58)
[2017-07-18] MEDS: Diltiazem CD (24hr) 180 MG CAPSULE PO SCH (08:59)
[2017-07-18] MEDS: *HR* Rivaroxaban 15 MG TABLET PO SCH (08:59)
[2017-07-18] MEDS: Gabapentin 100 MG CAPSULE PO SCH ×3 (08:59→21:23)
[2017-07-18] MEDS: *HR* HYDROcodone/Acet 5/325 mg TABLET PO PRN ×2 (09:16→15:18)
--- NOTE | 2017-07-18 09:51 | Pulmonology Consult Note ---
Date of Encounter: 07/19/17 Time of Encounter: 09:30 Assessment and Plan (1) Acute on chronic respiratory failure with hypoxia and hypercapnia Current Visit: Yes Status: Acute Patient has Acute on Chronic hypoxic and hypercapnic respiratory failure secondary to NICOL/OHS but the acute decline is due to exacerbation of CHF . To continue intermittent BIPAP whenever she sleeps . To continue diuresis as tolerated by primary team . To Keep SPO2 around 92-94% (2) CHF exacerbation Current Visit: Yes Status: Acute Patient has diastolic dysfunction with dilated Left atrium will continue diuresis as these could be the main cause for acute decompensation of his chronic hypercapnic respiratory failure Qualifiers: Congestive heart failure type: diastolic Qualified Code(s): I50.33 - Acute on chronic diastolic (congestive) heart failure (3) Morbid obesity with BMI of 70 and over, adult Current Visit: No Status: Chronic Patient will need outpatient evaluation for bariatric surgery (4) Obesity hypoventilation syndrome Current Visit: No Status: Acute To use the home settings but now her lung are fluid overloaded will change to 22/14 will repeat a gas in the morning after BIPAP usage (5) NICOL (obstructive sleep apnea) Current Visit: No Status: Chronic Patient has NICOL - To continue 22/14 for now and repeat the gas in the morning (6) History of pulmonary embolism Current Visit: No Status: Chronic On Xarelto History of Present Illness Consult date: 07/18/17 Requesting physician: Courtney Grubbs Reason for consult: dyspnea, abnormal CXR/CT, obstructive sleep apnea Chief complaint: Shortness of Breadth History of present illness: 62 year old female with past medical history significant for Super Morbid obesity , NICOL /OHS chronic hypercapnic respiratory failure , CHF , DM , HTN comes with shortness of breadth with CXR shows pulmonary vascular congestion and slight left sided pleural effusion getting treated for Exacerbation of congestive heart failure with diuresis pulmonary was consulted not improving acute on chronic hypercapnic respiratory failure . Patient on interview sitting comfortably in her bed not in any respiratory distress says she is feeling lot better denies any cough or sputum production , denies any chest pain or tightness or any palpitations, denies any head ache or any other focal neurological deficits . Past Med Surg Social Fam HX - Past Medical History Medical history: atrial fibrillation, diabetes, GERD, hypertension, pulmonary embolus, renal disease, other Psychiatric history: anxiety, depression - Past Surgical History Surgical History: hysterectomy, knee replacement - Social History Smoking Status: Never smoker Smokeless Tobacco Status: No Alcohol use: none Drug use: none - Family History Father Hx Family Cardiac Disorders: Yes ([place]) Hx Family Respiratory Disorders: Yes (Emphysema) Hx Family Cancer: No Hx Family GI Disorders: No Hx Family Endocrine Disorder: No Hx Family Neuromuscular Disorders: No Hx Family Neurologic Disorders: No Hx Family HEENT Disorders: No Hx Family Autoimmune Disorders: No Mother Name: Anni Reynoso Family Member Ethnicity: Non- Living Status: Age at : 78 Cause of : lung problem from methotraxate Hx Family Cardiac Disorders: No Hx Family Respiratory Disorders: Yes (Lung cancer) Hx Family Cancer: Yes (Small cell carcinoma) Hx Family GI Disorders: No Hx Family Genitourinary Disorders: No Hx Family Endocrine Disorder: No Hx Family Musculoskeletal Disorders: Yes (RA) Hx Family Neuromuscular Disorders: No Hx Family Neurologic Disorders: No Hx Family HEENT Disorders: No Hx Family Autoimmune Disorders: No Hx Family Reproductive Disorders: No Hx Family Psychosocial Disorders: No Hx Family Medical Disorders: No Medications and Allergies Baclofen [Lioresal] 10 mg PO TID 01/22/15 [History] Diltiazem HCl [Diltiazem 24Hr Cd] 180 mg PO DAILY 01/22/15 [History] Gabapentin [Neurontin] 200 mg PO TID 01/22/15 [History] Allopurinol [Zyloprim 300 MG] 300 mg PO DAILY tablet 10/08/15 [Rx] Docusate [Colace] 200 mg PO BID capsule 10/08/15 [Rx] Furosemide [Lasix] 60 mg PO BIDDIURETIC tablet 10/08/15 [Rx] Acetaminophen [Tylenol] 325 mg PO Q6HR PRN 01/18/16 [History] Albuterol Sulfate [Ventolin Hfa] 2 puff IH Q4H PRN 01/18/16 [History] Lactulose 20 gm PO DAILY PRN 01/18/16 [History] Loratadine [Claritin] 10 mg PO DAILY 01/18/16 [History] Pioglitazone HCl/Glimepiride [Duetact 30-2 mg Tablet] 1 tab PO DAILY 01/18/16 [ History] Ranitidine HCl [Heartburn Relief] 150 mg PO DAILY 01/18/16 [History] FentaNYL PATCH [Duragesic] 25 mcg TD Q72H #3 patch.td72 01/22/16 [Rx] Rivaroxaban [Xarelto] 15 mg PO DAILY 05/14/16 [History] Tamsulosin [Flomax] 0.4 mg PO DAILY 05/14/16 [History] 3 Allergy/AdvReac Type Severity Reaction Status Date / Time INDOCET AdvReac Hives Uncoded 11/21/16 00:41 All Systems: All other review of systems are negative Physical Examination Vital Signs: Vital Signs, Last 4 Hours Temp Pulse Resp BP Pulse Ox 07/18/17 07:08 97.8 F 73 18 155/73 97 Mallampati (class): 3 Auscultation: bilateral: diminished breath sounds (basilar diminished breadth sounds ) Gastrointestinal: other (very obese abdomen ) Extremities: edema Gait: other (limited range of motion in knee and elbow ) Results - Laboratory Findings CBC and BMP: 07/19/17 04:48 07/19/17 04:48 ABG ABG pH 7.34 pH Units (7.32-7.45) 07/17/17 05:49 ABG pCO2 89 mmHg (35-45) H* 07/17/17 05:49 ABG pO2 90 mmHg (85-104) D 07/17/17 05:49 ABG O2 Saturation 96 % (95-98) 07/17/17 05:49 Abnormal lab findings: Abnormal lab results RBC 3.58 M/mcL (3.82-4.97) L 07/18/17 05:22 Hgb 10.6 g/dL (11.5-15.4) L 07/18/17 05:22 Hct 34.0 % (35.3-44.9) L 07/18/17 05:22 MCHC 31.2 g/dL (31.6-35.5) L 07/18/17 05:22 RDW 14.7 % (11.5-14.5) H 07/18/17 05:22 ABG pCO2 89 mmHg (35-45) H* 07/17/17 05:49 ABG HCO3 48 mEq/L (21-27) H 07/17/17 05:49 ABG Total CO2 51 mEq/L (20-26) H 07/17/17 05:49 ABG Base Excess 18 mEq/L (-2 to 3) H 07/17/17 05:49 VBG pCO2 74 mmHg (41-51) H* 07/15/17 01:13 VBG pO2 184 mmHg (25-50) H 07/15/17 01:13 VBG HCO3 41 mEq/L (21-27) H 07/15/17 01:13 Chloride 91 mEq/L (98-107) L 07/18/17 06:56 Carbon Dioxide 45 mEq/L (23-29) H* 07/18/17 06:56 BUN 38 mg/dL (8-23) H 07/18/17 06:56 Est GFR (Non-Af Amer) 56 (> 60) L 07/18/17 06:56 BUN/Creatinine Ratio 38 (6-26) H 07/18/17 06:56 Glucose 267 mg/dL (70-105) H 07/18/17 06:56 POC Glucose 252 (58-89) H 07/18/17 07:13 Calculated Osmolality 302 (280-300) H 07/18/17 06:56 B-Natriuretic Peptide 261 pg/mL (Less than 100) H 07/14/17 10:43 - Clinical Findings Intake & Output: Intake & Output 07/17/17 07/18/17 07/18/17 23:59 07:59 15:59 Intake Total 832 / 832 700 / 700 240 / 240 Output Total 3925 / 3925 1900 / 1900 Balance -3093 / -3093 -1200 / -1200 240 / 240 Consult Discharge Plan - Plan Instructions: Heart Failure (DC), Sleep Apnea Syndrome (DC), Sleep Apnea Syndrome (GEN), Urinary Tract Infection in Women (DC), Cellulitis (DC), Cellulitis (GEN), Sepsis (DC) Referrals: Jimy Fitzgerald MD [Primary Care Provider] -
--- NOTE | 2017-07-18 12:52 | Internal Med Progress Note ---
Date of Encounter: 07/18/17 Time of Encounter: 12:49 - Assessment and plan (1) Acute on chronic respiratory failure with hypoxia and hypercapnia Current Visit: Yes Status: Acute Assessment and plan: likely multifactorial (Obesity hypoventilation syndrome, CHF decompensation) will continue bipap support, compliance education provided, Bipap support all day with breaks for meals and bipap at bedtime PO lasix BID Prednisone 40mg PO qd monitor I/Os, daily weights (highly unlikely that patient's documented weights are accurate) fluid restriction diet will continue to closely monitor Pulmonology evaluation requested (2) CHF exacerbation Current Visit: Yes Status: Acute Assessment and plan: 2D echo reported LVEF of 50% with moderate LV diastolic dysfunction moderately dilated LV mild MR, Mild TR continue Lisinopril 2.5mg PO qd will closely monitor BP continue IV diuresis Qualifiers: Congestive heart failure type: diastolic Qualified Code(s): I50.33 - Acute on chronic diastolic (congestive) heart failure (3) DM renal manif type II, uncontrolled Current Visit: No Status: Chronic Assessment and plan: continue sliding scale insulin algorithm monitor FS and BG ADA diet 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 mellitus mcc insulin use: with mcc use Chronic kidney disease stage: stage 3 (moderate) Qualified Code(s): E11.22 - Type 2 diabetes mellitus with diabetic chronic kidney disease; E11.65 - Type 2 diabetes mellitus with hyperglycemia; N18.3 - Chronic kidney disease, stage 3 (moderate) ; Z79.4 - USP (current) use of insulin (4) DVT prophylaxis Current Visit: No Status: Acute Assessment and plan: on Xarelto (5) History of pulmonary embolism Current Visit: No Status: Chronic Assessment and plan: continue xarelto (6) Hyperkalemia Current Visit: No Status: Resolved (7) Hypoventilation associated with obesity syndrome Current Visit: No Status: Chronic (8) Morbid obesity with BMI of 70 and over, adult Current Visit: No Status: Chronic (9) NICOL (obstructive sleep apnea) Current Visit: No Status: Chronic - Subjective Interval history: Patient is a 62y/o female admitted for acute on chronic respiratory failure with hypoxia and hypercapnia, and CHF exacerbation pt seen and examined at bedside. Pt is bedbound at baseline due to morbidly obese body habitus Pt seen with niece present at bedside. Pt remains noncompliant with bipap. She constantly has an excuse for not using the bipap. Extensive counseling provided about weight loss, pt keeps blaming the NH for her weight gain as the NH provides her with inappropriate food. Given worsening hypercapnia, Pulmonary evaluation requested - Constitutional Vitals: Temp Pulse Resp BP Pulse Ox 97.6 F 85 20 133/88 95 07/18/17 11:49 07/18/17 11:49 07/18/17 11:49 07/18/17 11:49 07/18/17 11:49 General appearance: Present: A&O X 3, morbidly obese, no acute distress, answers questions appropriately - Head Head exam: Present: atraumatic, normocephalic - Eye Eye exam: Present: conjuntiva pink, sclera anicteric - Respiratory Respiratory exam: Present: decreased breath sounds. Absent: respiratory distress, wheezes - Cardiovascular Cardiovascular exam: Present: RRR, +S1, +S2. Absent: diastolic murmur, gallop, rubs, systolic murmur - GI/Abdominal GI/Abdominal exam: Present: normal bowel sounds, soft, no peritoneal signs. Absent: distended, tenderness - Extremities Exam Extremities exam: Present: warm, radial pulses palpable and symmetrical. Absent : calf tenderness - Neurological Exam Neurological exam: Present: alert, oriented X3 - Psychiatric Psychiatric exam: Present: normal affect, normal mood Internal Medicine: Result - Labs CBC & Chem 7: 07/18/17 05:22 07/18/17 06:56 Labs: Short CBC 07/18/17 Range/Units 05:22 WBC 5.1 (4.3-11.1) K/mcL Hgb 10.6 L (11.5-15.4) g/dL Hct 34.0 L (35.3-44.9) % Plt Count 231 (140-400) K/mcL Neutrophils # 3.4 (1.6-8.9) K/mcL BMP 07/18/17 06:56 Sodium 137 Potassium 4.6 Chloride 91 L Carbon Dioxide 45 H* BUN 38 H Creatinine 1.00 Glucose 267 H Calcium 9.3 - ABG Interpretation ABG results: ABG ABG pH 7.34 pH Units (7.32-7.45) 07/17/17 05:49 ABG pCO2 89 mmHg (35-45) H* 07/17/17 05:49 ABG pO2 90 mmHg (85-104) D 07/17/17 05:49 ABG O2 Saturation 96 % (95-98) 07/17/17 05:49 Consult Discharge Plan - Plan Instructions: Heart Failure (DC), Sleep Apnea Syndrome (DC), Sleep Apnea Syndrome (GEN), Urinary Tract Infection in Women (DC), Cellulitis (DC), Cellulitis (GEN), Sepsis (DC) Referrals: Jimy Fitzgerald MD [Primary Care Provider] -
[2017-07-18] MEDS ORDERED: Insulin DETEMIR 100 UNIT/ML X5UNITS SQ SCH (21:00)
[2017-07-19] MEDS ORDERED: Lactulose Oral Soln 20 GM/30 ML UDC PO PRN (00:23)
[2017-07-19] MEDS: *HR* HYDROcodone/Acet 5/325 mg TABLET PO PRN ×4 (00:49→21:43)
[2017-07-19 05:16] LABS: Basophils % 0.5 %; Eosinophils % 0.5 %; Hematocrit 34.8 % (35.3-44.9); Hemoglobin 10.5 g/dL (11.5-15.4); Immature Granulocytes % 0.5 % (0-4); Lymphocytes # 2.1 K/mcL (0.6-4.6); Lymphocytes % 34.7 %; Mean Corpuscular HGB Conc 30.2 g/dL (31.6-35.5); Mean Corpuscular Hemoglobin 29.3 pg (28.0-33.3); Mean Corpuscular Volume 97.2 fL (83.0-100.0); Mean Platelet Volume 11.3 fL (9.4-12.4); Monocytes # 0.6 K/mcL (0.0-1.3); Monocytes % 9.8 %; Neutrophils # 3.2 K/mcL (1.6-8.9); Platelet Count 235 K/mcL (140-400); Red Blood Count 3.58 M/mcL (3.82-4.97); Red Cell Distribution Width 14.8 % (11.5-14.5)
[2017-07-19] MEDS: Artificial Tears SOLN 15 ML BOTTLE BOTH EYES SCH ×5 (05:19→21:44)
[2017-07-19 05:37] LABS: ABG Base Excess 17 mEq/L (-2 to 3); ABG HCO3 46 mEq/L (21-27); ABG Oxygen Saturation 96 % (95-98); ABG PCO2 81 mmHg (35-45); ABG PH 7.36 pH Units (7.32-7.45); ABG PO2 93 mmHg (85-104); ABG TCO2 49 mEq/L (20-26); Blood Gas Modality NC
[2017-07-19 05:50] LABS: BUN/Creatinine Ratio 41 (6-26); Blood Urea Nitrogen 43 mg/dL (8-23); Calcium 9.3 mg/dL (8.6-10.3); Carbon Dioxide 43 mEq/L (23-29); Chloride 90 mEq/L (98-107); Glucose 279 mg/dL (70-105); Osmolality,Calculated 305 (280-300); Potassium 4.5 mEq/L (3.5-5.1); Sodium 137 mEq/L (136-145); eGFR For African Americans > 60 (> 60); eGFR For Non-African Americans 53 (> 60)
[2017-07-19] MEDS: Insulin LISPRO 300 UNITS/3 ML VIAL SQ SCH ×4 (08:40→21:44)
[2017-07-19] MEDS: Furosemide 40 MG TABLET PO SCH ×2 (08:41→19:30)
[2017-07-19] MEDS: Famotidine 20 MG TABLET PO SCH (08:41)
[2017-07-19] MEDS: *HR* Rivaroxaban 15 MG TABLET PO SCH (08:41)
[2017-07-19] MEDS: Diltiazem CD (24hr) 180 MG CAPSULE PO SCH (08:41)
[2017-07-19] MEDS: Baclofen 10 MG TABLET PO SCH ×3 (08:42→21:43)
[2017-07-19] MEDS: predniSONE 20 MG TABLET PO SCH (08:42)
[2017-07-19] MEDS: Loratadine 10 MG TABLET PO SCH (08:42)
[2017-07-19] MEDS: Gabapentin 100 MG CAPSULE PO SCH ×3 (08:42→21:43)
--- NOTE | 2017-07-19 10:48 | Pulmonology Progress Note ---
Date of Encounter: 07/20/17 Time of Encounter: 10:00 Assessment and Plan (1) Acute on chronic respiratory failure with hypoxia and hypercapnia Current Visit: Yes Status: Acute Acute on chronic hypercapnic respiratory failure caused by acute on chronic diastolic heart failure . Patient tolerated BIPAP 22/14 did well on Gas exchange looked lot better. (2) CHF exacerbation Current Visit: Yes Status: Acute Acute on Chronic diastolic heart failure to continue diuresis as tolerated . Qualifiers: Congestive heart failure type: diastolic Qualified Code(s): I50.33 - Acute on chronic diastolic (congestive) heart failure (3) Morbid obesity with BMI of 70 and over, adult Current Visit: No Status: Chronic Patient wanted to get evaluated that she will be elligble for bariatric surgery . (4) Obesity hypoventilation syndrome Current Visit: No Status: Acute To continue BIPAP whenever she sleeps (5) NICOL (obstructive sleep apnea) Current Visit: No Status: Chronic Patient tolerated well BIPAP 22/14 with adequate gas exchange .. Will need to instruct the residential to change the pressure to 22/14 (6) History of pulmonary embolism Current Visit: No Status: Chronic To continue Xarelto Subjective Principal diagnosis: Acute exacerbation of diastolic heart failure Interval history: Patient is sitting on the chair says she is feeling better she is on with pressure that she used in the night not much shortness of breadth , denies any chest pain or tightness Objective PUL Vital signs: Last Vital Signs Temp 98.1 F 07/19/17 07:00 Pulse 90 07/19/17 07:00 Resp 16 07/19/17 09:09 BP 144/83 07/19/17 07:00 Pulse Ox 95 07/19/17 09:09 Auscultation: bilateral: diminished breath sounds (bilateral bibasilar crackles ), rales (scattered rales ) Cardiovascular: irregular rhythm Gastrointestinal: other (obese abdomen ) Extremities: other (chronic skin changes ) Results - Laboratory Findings CBC and BMP: 07/20/17 03:07 07/20/17 03:07 ABG ABG pH 7.36 pH Units (7.32-7.45) 07/19/17 05:23 ABG pCO2 81 mmHg (35-45) H* 07/19/17 05:23 ABG pO2 93 mmHg (85-104) 07/19/17 05:23 ABG O2 Saturation 96 % (95-98) 07/19/17 05:23 Abnormal lab findings: Abnormal lab results RBC 3.58 M/mcL (3.82-4.97) L 07/19/17 04:48 Hgb 10.5 g/dL (11.5-15.4) L 07/19/17 04:48 Hct 34.8 % (35.3-44.9) L 07/19/17 04:48 MCHC 30.2 g/dL (31.6-35.5) L 07/19/17 04:48 RDW 14.8 % (11.5-14.5) H 07/19/17 04:48 ABG pCO2 81 mmHg (35-45) H* 07/19/17 05:23 ABG HCO3 46 mEq/L (21-27) H 07/19/17 05:23 ABG Total CO2 49 mEq/L (20-26) H 07/19/17 05:23 ABG Base Excess 17 mEq/L (-2 to 3) H 07/19/17 05:23 VBG pCO2 74 mmHg (41-51) H* 07/15/17 01:13 VBG pO2 184 mmHg (25-50) H 07/15/17 01:13 VBG HCO3 41 mEq/L (21-27) H 07/15/17 01:13 Chloride 90 mEq/L (98-107) L 07/19/17 04:48 Carbon Dioxide 43 mEq/L (23-29) H* 07/19/17 04:48 BUN 43 mg/dL (8-23) H 07/19/17 04:48 Est GFR (Non-Af Amer) 53 (> 60) L 07/19/17 04:48 BUN/Creatinine Ratio 41 (6-26) H 07/19/17 04:48 Glucose 279 mg/dL (70-105) H 07/19/17 04:48 POC Glucose 361 (58-89) H 07/18/17 20:10 Calculated Osmolality 305 (280-300) H 07/19/17 04:48 B-Natriuretic Peptide 261 pg/mL (Less than 100) H 07/14/17 10:43 - Clinical Findings Intake & Output: Intake & Output 07/18/17 07/19/17 07/19/17 23:59 07:59 15:59 Intake Total 891 / 891 500 / 500 240 / 240 Output Total 450 / 450 700 / 700 Balance 441 / 441 -200 / -200 240 / 240 Consult Discharge Plan - Plan Instructions: Heart Failure (DC), Sleep Apnea Syndrome (DC), Sleep Apnea Syndrome (GEN), Urinary Tract Infection in Women (DC), Cellulitis (DC), Cellulitis (GEN), Sepsis (DC) Referrals: Jimy Fitzgerald MD [Primary Care Provider] -
--- NOTE | 2017-07-19 11:51 | Internal Med Progress Note ---
Date of Encounter: 07/19/17 Time of Encounter: 11:24 - Assessment and plan (1) Acute on chronic respiratory failure with hypoxia and hypercapnia Current Visit: Yes Status: Acute Assessment and plan: likely multifactorial (Obesity hypoventilation syndrome, CHF decompensation) will continue bipap support, compliance education provided, Bipap support all day with breaks for meals and bipap at bedtime PO lasix BID Prednisone 40mg PO qd monitor I/Os, daily weights (highly unlikely that patient's documented weights are accurate) fluid restriction diet will continue to closely monitor Pulmonology evaluation appreciated, bipap settings adjusted (2) CHF exacerbation Current Visit: Yes Status: Acute Assessment and plan: 2D echo reported LVEF of 50% with moderate LV diastolic dysfunction moderately dilated LV mild MR, Mild TR continue Lisinopril 2.5mg PO qd will closely monitor BP continue IV diuresis Qualifiers: Congestive heart failure type: diastolic Qualified Code(s): I50.33 - Acute on chronic diastolic (congestive) heart failure (3) DM renal manif type II, uncontrolled Current Visit: No Status: Chronic Assessment and plan: continue sliding scale insulin algorithm monitor FS and BG ADA diet adjusted insulin dosing as per insulin requirements in the last 24 hours. 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 mellitus chcf insulin use: with chcf use Chronic kidney disease stage: stage 3 (moderate) Qualified Code(s): E11.22 - Type 2 diabetes mellitus with diabetic chronic kidney disease; E11.65 - Type 2 diabetes mellitus with hyperglycemia; N18.3 - Chronic kidney disease, stage 3 (moderate) ; Z79.4 - tank terminal gauger (current) use of insulin (4) DVT prophylaxis Current Visit: No Status: Acute Assessment and plan: on Xarelto (5) History of pulmonary embolism Current Visit: No Status: Chronic Assessment and plan: continue xarelto (6) Hyperkalemia Current Visit: No Status: Resolved Assessment and plan: resolved (7) Hypoventilation associated with obesity syndrome Current Visit: No Status: Chronic (8) Morbid obesity with BMI of 70 and over, adult Current Visit: No Status: Chronic (9) NICOL (obstructive sleep apnea) Current Visit: No Status: Chronic - Subjective Interval history: Patient is a 62y/o female admitted for acute on chronic respiratory failure with hypoxia and hypercapnia, and CHF exacerbation pt seen and examined at bedside. Pt is bedbound at baseline due to morbidly obese body habitus. No overnight issues reported. Hypercapnia mildly improved from previous day - Constitutional Vitals: Temp Pulse Resp BP Pulse Ox 98.3 F 99 15 138/62 93 07/19/17 11:24 07/19/17 11:24 07/19/17 11:24 07/19/17 11:24 07/19/17 11:24 General appearance: Present: A&O X 3, morbidly obese, no acute distress, answers questions appropriately - Head Head exam: Present: atraumatic, normocephalic - Eye Eye exam: Present: conjuntiva pink, sclera anicteric - Respiratory Respiratory exam: Present: decreased breath sounds. Absent: respiratory distress, wheezes - Cardiovascular Cardiovascular exam: Present: RRR, +S1, +S2. Absent: diastolic murmur, gallop, rubs, systolic murmur - GI/Abdominal GI/Abdominal exam: Present: normal bowel sounds, soft, no peritoneal signs. Absent: distended, tenderness - Extremities Exam Extremities exam: Present: warm, radial pulses palpable and symmetrical ( chornic venous stasis in bilateral lower extremities ). Absent: calf tenderness - Neurological Exam Neurological exam: Present: alert, oriented X3 Internal Medicine: Result - Labs CBC & Chem 7: 07/19/17 04:48 07/19/17 04:48 Labs: Short CBC 07/19/17 Range/Units 04:48 WBC 5.9 (4.3-11.1) K/mcL Hgb 10.5 L (11.5-15.4) g/dL Hct 34.8 L (35.3-44.9) % Plt Count 235 (140-400) K/mcL Neutrophils # 3.2 (1.6-8.9) K/mcL BMP 07/19/17 04:48 Sodium 137 Potassium 4.5 Chloride 90 L Carbon Dioxide 43 H* BUN 43 H Creatinine 1.05 Glucose 279 H Calcium 9.3 - ABG Interpretation ABG results: ABG ABG pH 7.36 pH Units (7.32-7.45) 07/19/17 05:23 ABG pCO2 81 mmHg (35-45) H* 07/19/17 05:23 ABG pO2 93 mmHg (85-104) 07/19/17 05:23 ABG O2 Saturation 96 % (95-98) 07/19/17 05:23 Consult Discharge Plan - Plan Instructions: Heart Failure (DC), Sleep Apnea Syndrome (DC), Sleep Apnea Syndrome (GEN), Urinary Tract Infection in Women (DC), Cellulitis (DC), Cellulitis (GEN), Sepsis (DC) Referrals: Jimy Fitzgerald MD [Primary Care Provider] -
[2017-07-19] MEDS ORDERED: Insulin DETEMIR 100 UNIT/ML X5UNITS SQ SCH (21:00)
[2017-07-20 03:51] LABS: Basophils % 0.4 %; Eosinophils % 0.3 %; Hematocrit 35.7 % (35.3-44.9); Hemoglobin 10.9 g/dL (11.5-15.4); Immature Granulocytes % 0.4 % (0-4); Lymphocytes # 2.4 K/mcL (0.6-4.6); Lymphocytes % 32.2 %; Mean Corpuscular HGB Conc 30.5 g/dL (31.6-35.5); Mean Corpuscular Hemoglobin 29.5 pg (28.0-33.3); Mean Corpuscular Volume 96.7 fL (83.0-100.0); Mean Platelet Volume 11.8 fL (9.4-12.4); Monocytes # 0.7 K/mcL (0.0-1.3); Monocytes % 9.3 %; Neutrophils # 4.2 K/mcL (1.6-8.9); Platelet Count 234 K/mcL (140-400); Red Blood Count 3.69 M/mcL (3.82-4.97); Segmented Neutrophils % 57.4 %
[2017-07-20] MEDS: *HR* HYDROcodone/Acet 5/325 mg TABLET PO PRN ×4 (03:52→22:21)
[2017-07-20 04:25] LABS: BUN/Creatinine Ratio 48 (6-26); Blood Urea Nitrogen 48 mg/dL (8-23); Calcium 9.4 mg/dL (8.6-10.3); Carbon Dioxide 42 mEq/L (23-29); Chloride 90 mEq/L (98-107); Glucose 283 mg/dL (70-105); Osmolality,Calculated 309 (280-300); Phosphorous 4.7 mg/dL (2.7-4.5); Potassium 4.5 mEq/L (3.5-5.1); Sodium 138 mEq/L (136-145); eGFR For African Americans > 60 (> 60); eGFR For Non-African Americans 55 (> 60)
[2017-07-20] MEDS: *HR* Rivaroxaban 15 MG TABLET PO SCH (07:56)
[2017-07-20] MEDS: Diltiazem CD (24hr) 180 MG CAPSULE PO SCH (07:56)
[2017-07-20] MEDS: predniSONE 20 MG TABLET PO SCH (07:56)
[2017-07-20] MEDS: Furosemide 40 MG TABLET PO SCH ×2 (07:56→16:29)
[2017-07-20] MEDS: Gabapentin 100 MG CAPSULE PO SCH ×3 (07:56→22:20)
[2017-07-20] MEDS: Loratadine 10 MG TABLET PO SCH (07:56)
[2017-07-20] MEDS: Famotidine 20 MG TABLET PO SCH (07:56)
[2017-07-20] MEDS: Baclofen 10 MG TABLET PO SCH ×3 (07:56→22:20)
[2017-07-20] MEDS: Insulin LISPRO 300 UNITS/3 ML VIAL SQ SCH ×6 (07:57→22:22)
[2017-07-20] MEDS: Artificial Tears SOLN 15 ML BOTTLE BOTH EYES SCH ×4 (08:15→22:22)
[2017-07-20] MEDS ORDERED: Ipratropium/Albuterol Neb 3 ML IH PRN (08:53)
--- NOTE | 2017-07-20 10:20 | Internal Med Progress Note ---
Date of Encounter: 07/20/17 Time of Encounter: 09:25 - Assessment and plan (1) Acute on chronic respiratory failure with hypoxia and hypercapnia Current Visit: Yes Status: Acute Assessment and plan: likely multifactorial (Obesity hypoventilation syndrome, CHF decompensation) will continue bipap support, compliance education provided, Bipap support all day with breaks for meals and bipap at bedtime PO lasix BID Prednisone 40mg PO qd (Day 4/) monitor I/Os, daily weights (highly unlikely that patient's documented weights are accurate) fluid restriction diet will continue to closely monitor Pulmonology evaluation appreciated, bipap settings adjusted (2) CHF exacerbation Current Visit: Yes Status: Acute Assessment and plan: 2D echo reported LVEF of 50% with moderate LV diastolic dysfunction moderately dilated LV mild MR, Mild TR continue Lisinopril 2.5mg PO qd will closely monitor BP continue IV diuresis Qualifiers: Congestive heart failure type: diastolic Qualified Code(s): I50.33 - Acute on chronic diastolic (congestive) heart failure (3) DM renal manif type II, uncontrolled Current Visit: No Status: Chronic Assessment and plan: continue sliding scale insulin algorithm monitor FS and BG ADA diet adjusted insulin dosing as per insulin requirements in the last 24 hours. 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 mellitus extermination inspector insulin use: with extermination inspector use Chronic kidney disease stage: stage 3 (moderate) Qualified Code(s): E11.22 - Type 2 diabetes mellitus with diabetic chronic kidney disease; E11.65 - Type 2 diabetes mellitus with hyperglycemia; N18.3 - Chronic kidney disease, stage 3 (moderate) ; Z79.4 - alf (current) use of insulin (4) DVT prophylaxis Current Visit: No Status: Acute Assessment and plan: on Xarelto (5) History of pulmonary embolism Current Visit: No Status: Chronic Assessment and plan: continue xarelto (6) Hyperkalemia Current Visit: No Status: Resolved (7) Hypoventilation associated with obesity syndrome Current Visit: No Status: Chronic (8) Morbid obesity with BMI of 70 and over, adult Current Visit: No Status: Chronic (9) NICOL (obstructive sleep apnea) Current Visit: No Status: Chronic - Subjective Interval history: Patient is a 62y/o female admitted for acute on chronic respiratory failure with hypoxia and hypercapnia, and CHF exacerbation pt seen and examined at bedside. Pt is bedbound at baseline due to morbidly obese body habitus. No overnight issues reported. Hypercapnia mildly improved from previous day I had a detailed discussion with the patient and her family about her advance directives. Pt wishes to be DNR/DNI. - Constitutional Vitals: Temp Pulse Resp BP Pulse Ox 97.9 F 62 20 98/55 94 07/20/17 06:52 07/20/17 06:52 07/20/17 07:46 07/20/17 04:50 07/20/17 07:46 General appearance: Present: A&O X 3, morbidly obese, no acute distress, answers questions appropriately - Head Head exam: Present: atraumatic, normocephalic - Eye Eye exam: Present: conjuntiva pink, sclera anicteric - Respiratory Respiratory exam: Present: decreased breath sounds. Absent: respiratory distress, wheezes - Cardiovascular Cardiovascular exam: Present: RRR, +S1, +S2. Absent: diastolic murmur, gallop, rubs, systolic murmur - GI/Abdominal GI/Abdominal exam: Present: distended (abd pannus), normal bowel sounds, soft. Absent: tenderness - Extremities Exam Extremities exam: Present: warm, radial pulses palpable and symmetrical (b/l chronic venous stasis in LE ). Absent: calf tenderness - Neurological Exam Neurological exam: Present: alert, oriented X3 - Psychiatric Psychiatric exam: Present: normal affect, normal mood Internal Medicine: Result - Labs CBC & Chem 7: 07/20/17 03:07 07/20/17 03:07 Labs: Short CBC 07/20/17 Range/Units 03:07 WBC 7.3 (4.3-11.1) K/mcL Hgb 10.9 L (11.5-15.4) g/dL Hct 35.7 (35.3-44.9) % Plt Count 234 (140-400) K/mcL Neutrophils # 4.2 (1.6-8.9) K/mcL BMP 07/20/17 03:07 Sodium 138 Potassium 4.5 Chloride 90 L Carbon Dioxide 42 H* BUN 48 H Creatinine 1.01 Glucose 283 H Calcium 9.4 - ABG Interpretation ABG results: ABG ABG pH 7.36 pH Units (7.32-7.45) 07/19/17 05:23 ABG pCO2 81 mmHg (35-45) H* 07/19/17 05:23 ABG pO2 93 mmHg (85-104) 07/19/17 05:23 ABG O2 Saturation 96 % (95-98) 07/19/17 05:23 Consult Discharge Plan - Plan Instructions: Heart Failure (DC), Sleep Apnea Syndrome (DC), Sleep Apnea Syndrome (GEN), Urinary Tract Infection in Women (DC), Cellulitis (DC), Cellulitis (GEN), Sepsis (DC) Referrals: Jimy Fitzgerald MD [Primary Care Provider] -
[2017-07-20] MEDS: Insulin DETEMIR 100 UNIT/ML X5UNITS SQ SCH ×2 (12:26→22:21)
[2017-07-20] MEDS: *HR* FentaNYL PATCH 25 MCG PATCH TD SCH (16:29)
[2017-07-21 04:21] LABS: Basophils % 0.5 %; Eosinophils # 0.1 K/mcL (0.0-0.6); Hematocrit 36.2 % (35.3-44.9); Immature Granulocytes % 0.8 % (0-4); Lymphocytes # 2.2 K/mcL (0.6-4.6); Lymphocytes % 35.3 %; Mean Corpuscular HGB Conc 30.4 g/dL (31.6-35.5); Mean Corpuscular Hemoglobin 29.3 pg (28.0-33.3); Mean Corpuscular Volume 96.5 fL (83.0-100.0); Mean Platelet Volume 11.5 fL (9.4-12.4); Monocytes # 0.6 K/mcL (0.0-1.3); Monocytes % 10.1 %; Neutrophils # 3.3 K/mcL (1.6-8.9); Platelet Count 208 K/mcL (140-400); Red Blood Count 3.75 M/mcL (3.82-4.97); Segmented Neutrophils % 52.3 %
[2017-07-21 05:04] LABS: ABG Base Excess 16 mEq/L (-2 to 3); ABG HCO3 45 mEq/L (21-27); ABG Oxygen Saturation 96 % (95-98); ABG PCO2 74 mmHg (35-45); ABG PH 7.39 pH Units (7.32-7.45); ABG PO2 87 mmHg (85-104); ABG TCO2 47 mEq/L (20-26)
[2017-07-21 05:10] LABS: BUN/Creatinine Ratio 53 (6-26); Blood Urea Nitrogen 54 mg/dL (8-23); Calcium 9.5 mg/dL (8.6-10.3); Carbon Dioxide 38 mEq/L (23-29); Chloride 94 mEq/L (98-107); Glucose 252 mg/dL (70-105); Osmolality,Calculated 319 (280-300); Potassium 4.5 mEq/L (3.5-5.1); Sodium 143 mEq/L (136-145); eGFR For African Americans > 60 (> 60); eGFR For Non-African Americans 55 (> 60)
[2017-07-21] MEDS: Artificial Tears SOLN 15 ML BOTTLE BOTH EYES SCH ×4 (06:53→21:30)
[2017-07-21] MEDS: *HR* HYDROcodone/Acet 5/325 mg TABLET PO PRN ×3 (06:56→23:52)
[2017-07-21] MEDS: Insulin LISPRO 300 UNITS/3 ML VIAL SQ SCH ×7 (08:11→21:31)
[2017-07-21] MEDS: Baclofen 10 MG TABLET PO SCH ×3 (08:13→21:29)
[2017-07-21] MEDS: Gabapentin 100 MG CAPSULE PO SCH ×3 (08:13→21:30)
[2017-07-21] MEDS: Furosemide 40 MG TABLET PO SCH ×2 (08:13→17:26)
[2017-07-21] MEDS: Loratadine 10 MG TABLET PO SCH (08:13)
[2017-07-21] MEDS: Diltiazem CD (24hr) 180 MG CAPSULE PO SCH (08:13)
[2017-07-21] MEDS: *HR* Rivaroxaban 15 MG TABLET PO SCH (08:14)
[2017-07-21] MEDS: Famotidine 20 MG TABLET PO SCH (08:14)
[2017-07-21] MEDS: predniSONE 20 MG TABLET PO SCH (08:14)
[2017-07-21] MEDS: Insulin DETEMIR 100 UNIT/ML X5UNITS SQ SCH ×2 (08:17→21:31)
[2017-07-21] MEDS ORDERED: Lactulose Oral Soln 20 GM/30 ML UDC PO PRN (09:11)
--- NOTE | 2017-07-21 11:16 | Discharge Summary ---
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 insulin use: with snf use Chronic kidney disease stage: stage 3 (moderate) Qualified Code(s): E11.22 - Type 2 diabetes mellitus with diabetic chronic kidney disease; E11.65 - Type 2 diabetes mellitus with hyperglycemia; N18.3 - Chronic kidney disease, stage 3 (moderate) ; Z79.4 - snf (current) use of insulin (4) DVT prophylaxis Priority: Secondary Status: Acute (5) History of pulmonary embolism Priority: Secondary Status: Chronic (6) Hyperkalemia Priority: Secondary Status: Resolved (7) Hypoventilation associated with obesity syndrome Priority: Secondary Status: Chronic (8) Morbid obesity with BMI of 70 and over, adult Priority: Secondary Status: Chronic (9) NICOL (obstructive sleep apnea) Priority: Secondary Status: Chronic - Discharge Medications Prescriptions: Baclofen [Lioresal] 10 mg PO TID #10 tablet Gabapentin [Neurontin] 200 mg PO TID #15 capsule Home Medications: Diltiazem HCl [Diltiazem 24Hr Cd] 180 mg PO DAILY 01/22/15 [History] Gabapentin [Neurontin] 200 mg PO TID 01/22/15 [History] Allopurinol [Zyloprim 300 MG] 300 mg PO DAILY tablet 10/08/15 [Rx] Docusate [Colace] 200 mg PO BID capsule 10/08/15 [Rx] Acetaminophen [Tylenol] 325 mg PO Q6HR PRN 01/18/16 [History] Albuterol Sulfate [Ventolin Hfa] 2 puff IH Q4H PRN 01/18/16 [History] Lactulose 20 gm PO DAILY PRN 01/18/16 [History] Loratadine [Claritin] 10 mg PO DAILY 01/18/16 [History] Pioglitazone HCl/Glimepiride [Duetact 30-2 mg Tablet] 1 tab PO DAILY 01/18/16 [ History] Ranitidine HCl [Heartburn Relief] 150 mg PO DAILY 01/18/16 [History] FentaNYL PATCH [Duragesic] 25 mcg TD Q72H #3 patch.td72 01/22/16 [Rx] Rivaroxaban [Xarelto] 15 mg PO DAILY 05/14/16 [History] Tamsulosin [Flomax] 0.4 mg PO DAILY 05/14/16 [History] Baclofen [Lioresal] 10 mg PO TID #10 tablet 07/21/17 [Rx] Furosemide [Lasix] 80 mg PO BIDDIURETIC tablet 07/21/17 [Rx] Gabapentin [Neurontin] 200 mg PO TID #15 capsule 07/21/17 [Rx] Lisinopril [Zestril] 2.5 mg PO DAILY tablet 07/21/17 [Rx] Allergies/Adverse Reactions: 3 Allergy/AdvReac Type Severity Reaction Status Date / Time INDOCET AdvReac Hives Uncoded 11/21/16 00:41 Date of admission: 07/14/17 18:15 Primary care physician: Jimy Fitzgerald MD Consults: 07/15/17 08:33 Consult to Foundation Stage Teacher [CONS] Routine [facility] 07[facility]18/17 08:44 Consult to Pulmonology [CONS] Routine Consulting Provider: [facility] Reason for Consult: acute respiratory failure with hypercapnia Call Completed: Yes 07/18/17 13:35 Consult to Respiratory Therapy [CONS] Routine Reason for Consult: BiPAP. Please change settings per Dr. Dumont to with 3 L O2. Time Notified: 13:36 Call Completed: No Discharging clinician: Courtney Grubbs Anticipated date of discharge: 07/21/17 - Patient Status Disposition: Transfer SNF Condition: Good Functional capacity at discharge: bed bound Overall status at discharge: patient is back to baseline - Discharge Instructions Instructions: Heart Failure (DC), Sleep Apnea Syndrome (DC), Sleep Apnea Syndrome (GEN), Urinary Tract Infection in Women (DC), Cellulitis (DC), Cellulitis (GEN), Sepsis (DC) Follow Up With: Jimy Fitzgerald MD [Primary Care Provider] - Additional Instructions: Please follow up with your primary care physician within five days after your discharge from the hospital. Please follow up with pulmonology within one week after your discharge from the hospital. Continue bipap support at bedtime and during the day while naping. Bipap settings: Your home dose of lasix has been increased to 80mg twice a day. Lisinopril 2.5mg once a day has been added. Resume all other medications as prescribed by your primary care physician. - Diet and Activity Activity: resume usual activities as tolerated, wear oxygen at all times, wear oxygen at night Diet: diabetic diet, low fat, low cholesterol, low salt diet Hospital course: Ms. Reynoso is a 62 year old female with PMH Of morbid obesity, CHF, OHS on LTOT, NICOL, Afib, HTN, DM, PE on anticoagulation who was admitted for acute on chronic respiratory failure with hypoxia and hypercapnia secondary to CHF exacerbation and underlying Obesity hypoventilation syndrome. She was started on IV diuresis and bipap support. She continued to have worsening of hypercapnia due to which she was started on systemic steroids and pulm evaluation was requested. Pt's bipap settings were adjusted and bipap compliance was heavily ensured, as pt continued to remain noncompliant with bipap support. Her advance directives were discussed in detail during this hospitalization and she changed her code status to DNR/DNI. At this time she is back to her baseline respiratory status and stable for discharge to [facility]. She will follow up with PCP and pulm after discharge. - Time Spent with Patient Total time spent providing and/or coordinating discharge services: Greater than 30 minutes - Constitutional Vitals: Temp Pulse Resp BP Pulse Ox 97.7 F 81 16 127/56 100 07/21/17 07:00 07/21/17 07:00 07/21/17 07:00 07/21/17 07:00 07/21/17 07:00 General appearance: Present: A&O X 3, morbidly obese, no acute distress, answers questions appropriately - Head Head exam: Present: atraumatic, normocephalic - Eye Eye exam: Present: conjuntiva pink, sclera anicteric - Respiratory Respiratory exam: Present: decreased breath sounds. Absent: respiratory distress, wheezes - Cardiovascular Cardiovascular exam: Present: RRR, +S1, +S2. Absent: diastolic murmur, gallop, rubs, systolic murmur - GI/Abdominal GI/Abdominal exam: Present: distended (abd pannus ), normal bowel sounds, soft, no peritoneal signs. Absent: tenderness - Extremities Exam Extremities exam: Present: warm, radial pulses palpable and symmetrical (b/l LE chronic venous stasis ). Absent: calf tenderness - Neurological Exam Neurological exam: Present: alert, oriented X3 - Psychiatric Psychiatric exam: Present: normal affect, normal mood
--- NOTE | 2017-07-21 11:26 | Physician Discharge Referral ---
ExtendedCare Referral Info Transfer To: F Provider in Charge after Transfer: PCP - Diagnosis (1) Acute on chronic respiratory failure with hypoxia and hypercapnia Priority: Primary Status: Resolved (2) CHF exacerbation Priority: Primary Status: Acute (3) DM renal manif type II, uncontrolled Priority: Secondary Status: Chronic (4) DVT prophylaxis Priority: Secondary Status: Acute (5) History of pulmonary embolism Priority: Secondary Status: Chronic (6) Hyperkalemia Priority: Secondary Status: Resolved (7) Hypoventilation associated with obesity syndrome Priority: Secondary Status: Chronic (8) Morbid obesity with BMI of 70 and over, adult Priority: Secondary Status: Chronic (9) NICOL (obstructive sleep apnea) Priority: Secondary Status: Chronic - Transfer Medications Prescriptions: Baclofen [Lioresal] 10 mg PO TID #10 tablet Gabapentin [Neurontin] 200 mg PO TID #15 capsule Home Medications: Diltiazem HCl [Diltiazem 24Hr Cd] 180 mg PO DAILY 01/22/15 [History] Gabapentin [Neurontin] 200 mg PO TID 01/22/15 [History] Allopurinol [Zyloprim 300 MG] 300 mg PO DAILY tablet 10/08/15 [Rx] Docusate [Colace] 200 mg PO BID capsule 10/08/15 [Rx] Acetaminophen [Tylenol] 325 mg PO Q6HR PRN 01/18/16 [History] Albuterol Sulfate [Ventolin Hfa] 2 puff IH Q4H PRN 01/18/16 [History] Lactulose 20 gm PO DAILY PRN 01/18/16 [History] Loratadine [Claritin] 10 mg PO DAILY 01/18/16 [History] Pioglitazone HCl/Glimepiride [Duetact 30-2 mg Tablet] 1 tab PO DAILY 01/18/16 [ History] Ranitidine HCl [Heartburn Relief] 150 mg PO DAILY 01/18/16 [History] FentaNYL PATCH [Duragesic] 25 mcg TD Q72H #3 patch.td72 01/22/16 [Rx] Rivaroxaban [Xarelto] 15 mg PO DAILY 05/14/16 [History] Tamsulosin [Flomax] 0.4 mg PO DAILY 05/14/16 [History] Baclofen [Lioresal] 10 mg PO TID #10 tablet 07/21/17 [Rx] Furosemide [Lasix] 80 mg PO BIDDIURETIC tablet 07/21/17 [Rx] Gabapentin [Neurontin] 200 mg PO TID #15 capsule 07/21/17 [Rx] Lisinopril [Zestril] 2.5 mg PO DAILY tablet 07/21/17 [Rx] Allergies/Adverse Reactions: 3 Allergy/AdvReac Type Severity Reaction Status Date / Time INDOCET AdvReac Hives Uncoded 11/21/16 00:41 - Respiratory Orders Smoking Cessation: Smoking cessation has been advised. For more information, call the [place] Tobacco Quit Line at 1-605-KLJV-NOW. - Rehabiliation Orders Other: Please follow up with your primary care physician within five days after your discharge from the hospital. Please follow up with pulmonology within one week after your discharge from the hospital. Continue bipap support at bedtime and during the day while naping. Bipap settings: Your home dose of lasix has been increased to 80mg twice a day. Lisinopril 2.5mg once a day has been added. Resume all other medications as prescribed by your primary care physician. CERTIFICATION: I certify that the transfer of the above named patient to an Extended Care Facility is necessary for the continuing treatment of the diagnosis listed. The above information is true and accurate reflection of patient's current condition. Confidential - Redisclosure prohibited without a patient's written consent.
[2017-07-21 12:54] LABS: VBG HCO3 46 mEq/L (21-27); VBG PCO2 66 mmHg (41-51); VBG PH 7.45 pH Units (7.32-7.42); VBG PO2 134 mmHg (25-50)
[2017-07-22] MEDS: Diltiazem CD (24hr) 180 MG CAPSULE PO SCH (08:50)
[2017-07-22] MEDS: Gabapentin 100 MG CAPSULE PO SCH ×2 (08:50→16:00)
[2017-07-22] MEDS: Famotidine 20 MG TABLET PO SCH (08:50)
[2017-07-22] MEDS: Furosemide 40 MG TABLET PO SCH ×2 (08:50→16:00)
[2017-07-22] MEDS: *HR* Rivaroxaban 15 MG TABLET PO SCH (08:50)
[2017-07-22] MEDS: Loratadine 10 MG TABLET PO SCH (08:50)
[2017-07-22] MEDS: Baclofen 10 MG TABLET PO SCH ×2 (08:50→16:00)
[2017-07-22] MEDS: Artificial Tears SOLN 15 ML BOTTLE BOTH EYES SCH ×3 (08:51→16:00)
[2017-07-22] MEDS: Insulin LISPRO 300 UNITS/3 ML VIAL SQ SCH ×4 (08:52→12:39)
[2017-07-22] MEDS: Insulin DETEMIR 100 UNIT/ML X5UNITS SQ SCH (08:53)
--- NOTE | 2017-07-22 09:55 | Internal Med Progress Note ---
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 Chronic kidney disease stage: stage 3 (moderate) Qualified Code(s): E11.22 - Type 2 diabetes mellitus with diabetic chronic kidney disease; E11.65 - Type 2 diabetes mellitus with hyperglycemia; N18.3 - Chronic kidney disease, stage 3 (moderate) ; 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 (4) DVT prophylaxis Current Visit: No Status: Acute (5) History of pulmonary embolism Current Visit: No Status: Chronic (6) Hyperkalemia Current Visit: No Status: Resolved (7) Hypoventilation associated with obesity syndrome Current Visit: No Status: Chronic (8) Morbid obesity with BMI of 70 and over, adult Current Visit: No Status: Chronic (9) NICOL (obstructive sleep apnea) Current Visit: No Status: Chronic - Subjective Interval history: Patient is a 62y/o female admitted for acute on chronic respiratory failure with hypoxia and hypercapnia, and CHF exacerbation Patient was discharged to ECF yesterday however her discharge was placed on hold due to the ECF not having bipap available. This morning the ECF has the bipap and the new settings have been given to the ECF nursing staff. Pt will be discharged to ECF today. Pt seen and examined at bedside. Resting in bed and denies any discomfort. Saturating well on nasal cannula. No overnight issues were reported. - Constitutional Vitals: Temp Pulse Resp BP Pulse Ox 97.7 F 72 18 113/67 97 07/22/17 03:58 07/22/17 07:57 07/22/17 03:58 07/22/17 07:57 07/22/17 07:57 General appearance: Present: A&O X 3, morbidly obese, no acute distress, answers questions appropriately - Head Head exam: Present: atraumatic, normocephalic - Eye Eye exam: Present: conjuntiva pink, sclera anicteric - Respiratory Respiratory exam: Present: decreased breath sounds. Absent: respiratory distress, wheezes - Cardiovascular Cardiovascular exam: Present: RRR, +S1, +S2. Absent: diastolic murmur, gallop, rubs, systolic murmur - GI/Abdominal GI/Abdominal exam: Present: distended (abd pannus), normal bowel sounds, soft, no peritoneal signs. Absent: tenderness - Extremities Exam Extremities exam: Present: warm, radial pulses palpable and symmetrical ( chronic venous stasis in b/l LE ). Absent: calf tenderness - Neurological Exam Neurological exam: Present: alert, oriented X3 Internal Medicine: Result - Labs CBC & Chem 7: 07/21/17 03:35 07/21/17 03:35 - ABG Interpretation ABG results: ABG ABG pH 7.39 pH Units (7.32-7.45) 07/21/17 04:56 ABG pCO2 74 mmHg (35-45) H* 07/21/17 04:56 ABG pO2 87 mmHg (85-104) 07/21/17 04:56 ABG O2 Saturation 96 % (95-98) 07/21/17 04:56 Consult Discharge Plan - Plan Instructions: Baclofen (By mouth), Gabapentin (By mouth), Heart Failure (DC), Sleep Apnea Syndrome (DC), Sleep Apnea Syndrome (GEN), Urinary Tract Infection in Women (DC), Cellulitis (DC), Cellulitis (GEN), Sepsis (DC) Additional Instructions: Please follow up with your primary care physician within five days after your discharge from the hospital. Please follow up with pulmonology within one week after your discharge from the hospital. Continue bipap support at bedtime and during the day while naping. Bipap settings: Your home dose of lasix has been increased to 80mg twice a day. Lisinopril 2.5mg once a day has been added. Resume all other medications as prescribed by your primary care physician. Referrals: Jimy Fitzgerald MD [Primary Care Provider] - Theron Dumont MD [Partnered Physician] - 08/11/17 1:00 pm Prescriptions: Baclofen [Lioresal] 10 mg PO TID #10 tablet Gabapentin [Neurontin] 200 mg PO TID #15 capsule
[2017-07-22] MEDS: *HR* HYDROcodone/Acet 5/325 mg TABLET PO PRN (11:08)
[2017-07-22 12:31] VITALS: BP 141/72
== END 2017-07-22 18:20 | DRG 291 ==
LOC: 2ANU 10:22 → EMEROO 10:22 → 2ANU 13:57 → SUATTDRO 18:15 → 2NENU 07-15 21:17
PROVIDERS: ADMIT Family Medicine; ATTEND Internal Medicine

== ENCOUNTER 2019-02-26 21:56 | Inpatient (IN) ==
[2019-02-26 22:42] LABS: Bilirubin,Urine Small (Negative); Blood,Urine Large (Negative); Clarity,Urine Cloudy (Clear); Color,Urine Yellow (Yellow); Glucose,Urine (UA) Normal (Normal); Ketones,Urine Negative (Negative); Leukocyte Esterase,Urine Moderate (Negative); Nitrite,Urine Negative (Negative); Protein,Urine Negative (Neg-Trace); Urobilinogen,Urine Normal (Normal)
--- NOTE | 2019-02-26 22:43 | Emergency Department Note ---
Disposition Clinical Impression: Hypercarbia Disposition: Admitted As Inpatient Condition: Fair Time of Disposition: 00:56 General Adult HPI - General Chief complaint: ED General Medical Stated complaint: High Potassium Time Seen by Provider: 02/26/19 22:00 Source: EMS Limitations: physical limitation - History of Present Illness Pain Scale: 0 - Related Data Home Medications Medication Instructions Recorded Confirmed Ranitidine HCl [Heartburn Relief] 150 mg PO HS 01/18/16 11/23/18 Acetaminophen [Extra Strength 500 mg PO Q6H PRN 08/04/18 02/27/19 Non-Aspirin] Baclofen [Lioresal] 10 mg PO BID 08/04/18 02/27/19 Dulaglutide [Trulicity] 1.5 mg SQ TU 08/04/18 11/23/18 Fluorometholone [Fml Forte] 1 drop BOTH EYES 1200 08/04/18 11/23/18 Glimepiride [Amaryl] 4 mg PO BID 08/04/18 02/27/19 Insulin ASPART [Novolog Flexpen] 0 unit SQ ACHS 08/04/18 11/23/18 Insulin ASPART [Novolog Flexpen] 34 unit SQ TIDWM 08/04/18 11/23/18 Insulin Degludec [Tresiba 40 unit SQ HS 08/04/18 11/23/18 Flextouch U-100] Levalbuterol Tartrate [Xopenex Hfa] 2 puff IH 0000,0600,1200,1800 08/04/18 11/23/18 Montelukast [Singulair] 10 mg PO HS 08/04/18 11/23/18 Polyvinyl Alcohol/Povidone 1 drop OP DAILY PRN 08/04/18 02/27/19 [Artificial Tears Drops] Albuterol Sulfate [Ventolin Hfa] 2 puff IH Q4H PRN 08/28/18 11/23/18 Allopurinol [Zyloprim 300 MG] 300 mg PO QAM 08/28/18 02/27/19 Bisacodyl [Gentle Laxative] 10 mg RC DAILY PRN 08/28/18 11/23/18 Cyanocobalamin (B-12) [Vitamin B12] 1,000 mcg PO 0800 08/28/18 11/23/18 Docusate [Colace] 200 mg PO BID 08/28/18 11/23/18 Lactulose 20 gm PO DAILY PRN 08/28/18 02/27/19 Menthol [Biofreeze] 1 appl TP TID PRN 08/28/18 11/23/18 Rivaroxaban [Xarelto] 20 mg PO HS 08/28/18 11/23/18 dilTIAZem HCl [Diltiazem 24Hr ER 180 mg PO QAM 08/28/18 02/27/19 (Cd)] Cholecalciferol (Vitamin D3) 2,000 unit PO DAILY 11/13/18 11/23/18 [Vitamin D3] Polyethylene Glycol 3350 [MiraLax 17 gm PO DAILY PRN 11/13/18 02/27/19 bowel prep] Ipratropium/Albuterol Neb [Duoneb] 3 ml IH BID 11/23/18 02/27/19 Tramadol HCl [Ultram] 50 mg PO QID PRN 11/23/18 02/27/19 Previous Rx's Medication Instructions Recorded Carvedilol 12.5 mg PO BID 365 Days tab 11/12/18 Isosorbide MONOnitrate (24 HR) 30 mg PO DAILY 365 Days tab.er.24h 11/12/18 [Imdur] Bumetanide [Bumex] 1 mg PO BID 365 Days tablet 11/18/18 acetaZOLAMIDE [Diamox] 250 mg PO DAILY #5 tablet 11/18/18 Amoxicillin/Clavulanate [Augmentin] 500 mg PO BIDWM #10 tablet 11/25/18 Doxycycline 100 mg PO BID #10 capsule 11/25/18 Gabapentin [Neurontin] 200 mg PO TID #30 capsule 11/25/18 predniSONE [PredniSONE] 10 mg PO DAILY #12 tablet 11/25/18 Allergies Allergy/AdvReac Type Severity Reaction Status Date / Time indomethacin AdvReac Hives Verified 11/21/18 12:09 Past Medical History - Past Medical History Medical history: Reports: atrial fibrillation, CHF, diabetes, GERD, hypertension, pulmonary embolus, renal disease, other Surgical history: Reports: hysterectomy Psychiatric history: Reports: anxiety, depression 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 - Social History Smoking Status: Never smoker Smokeless Tobacco Status: No Alcohol use: Reports: none Drug use: Reports: none Physical Exam - General Limitations: physical limitation General appearance: alert Course Vital Signs Temperature 97.6 F 02/26/19 22:04 Pulse Rate 77 02/26/19 22:04 Respiratory Rate 18 02/26/19 22:04 Blood Pressure 142/62 02/26/19 22:04 O2 Sat by Pulse Oximetry 91 02/26/19 22:04 Temperature 98.4 F 02/27/19 11:17 Pulse Rate 59 02/27/19 11:17 Respiratory Rate 20 02/27/19 11:17 Blood Pressure 128/50 02/27/19 11:17 O2 Sat by Pulse Oximetry 96 02/27/19 11:17 Oxygen Delivery Oxygen Delivery Nasal Cannula Medical Decision Making - Lab Data Result diagrams: 02/27/19 04:36 02/27/19 04:36 Lab Results 02/26/19 02/26/19 02/26/19 Range/Units 22:32 23:00 23:55 WBC 27.4 H (4.3-11.1) K/mcL RBC 3.25 L (3.82-4.97) M/mcL Hgb 9.2 L (11.5-15.4) g/dL Hct 31.6 L (35.3-44.9) % MCV 97.2 (83.0-100.0) fL MCH 28.3 (28.0-33.3) pg MCHC 29.1 L (31.6-35.5) g/dL RDW 16.1 H (11.5-14.5) % Plt Count 390 (140-400) K/mcL MPV 10.8 (9.4-12.4) fL Immature Gran % 2.4 (0-4) % Seg Neutrophils % 82.3 % Lymphocytes % 11.4 % Monocytes % 2.9 % Eosinophils % 0.7 % Basophils % 0.3 % Neutrophils # 22.6 H (1.6-8.9) K/mcL Lymphocytes # 3.1 (0.6-4.6) K/mcL Monocytes # 0.8 (0.0-1.3) K/mcL Eosinophils # 0.2 (0.0-0.6) K/mcL Basophils # 0.1 (0.0-0.2) K/mcL Nucleated RBCs/100 WBC 0.5 H (0) /100 WBC Platelet Estimate Normal (Normal) Sample Site R Radial ABG pH 7.27 L (7.32-7.45) pH Units ABG pCO2 93 H* (35-45) mmHg ABG pO2 74 L (85-104) mmHg ABG HCO3 43 H (21-27) mEq/L ABG Total CO2 46 H (20-26) mEq/L ABG O2 Saturation 91 L (95-98) % ABG Base Excess 13 H (-2 to 3) mEq/L Neal Test Positive Respiration Rate O2 Delivery Device Cannula Blood Gas Modality Inspired O2 32.0 (1-15=lpm [id number]=%) Tidal Volume cc PEEP cm H2O Sodium (136-145) mEq/L Potassium (3.5-5.1) mEq/L Chloride (98-107) mEq/L Carbon Dioxide (23-29) mEq/L BUN (8-23) mg/dL Creatinine (0.60-1.20) mg/dL Est GFR ( Amer) (> 60) Est GFR (Non-Af Amer) (> 60) BUN/Creatinine Ratio (6-26) Glucose (70-105) mg/dL Calculated Osmolality (280-300) Lactic Acid (0.5-2.2) mmol/L Calcium (8.6-10.3) mg/dL Magnesium (1.6-2.6) mg/dL Total Bilirubin (0.3-1.0) mg/dL AST (13-39) Units/L ALT (7-52) Units/L Alkaline Phosphatase (34-104) Units/L Creatine Kinase (30-223) Units/L Troponin I (< 0.04) ng/mL B-Natriuretic Peptide (Less than 100) pg/mL Serum Total Protein (6.4-8.9) g/dL Albumin (3.5-5.7) g/dL Globulin (2.4-3.5) g/dL Albumin/Globulin Ratio (1.1-2.2) Urine Color Yellow (Yellow) Urine Clarity Cloudy A (Clear) Urine pH 5.0 (5.0-8.0) pH Units Ur Specific Otis 1.020 (1.010-1.025) Urine Protein Negative (Neg-Trace) mg/dL Urine Glucose (UA) Normal (Normal) mg/dL Urine Ketones Negative (Negative) mg/dL Urine Blood Large H (Negative) Urine Nitrite Negative (Negative) Urine Bilirubin Small H (Negative) Urine Urobilinogen Normal (Normal) mg/dL Ur Leukocyte Esterase Moderate H (Negative) Urine Microscopic RBC 30-50 H (0-3) per hpf Urine Microscopic WBC 30-50 H (0-3) per hpf Ur Squamous Epith Cells Many H (None-Few) per lpf Urine Bacteria Many H (None-Few) per hpf Hyaline Casts Moderate H (None-Few) per lpf Ur Culture Indicated? YES A (NO) Person Notif of Ale GREGG MEREDITH 02/26/19 02/26/19 02/26/19 Range/Units 23:55 23:55 23:55 WBC (4.3-11.1) K/mcL RBC (3.82-4.97) M/mcL Hgb (11.5-15.4) g/dL Hct (35.3-44.9) % MCV (83.0-100.0) fL MCH (28.0-33.3) pg MCHC (31.6-35.5) g/dL RDW (11.5-14.5) % Plt Count (140-400) K/mcL MPV (9.4-12.4) fL Immature Gran % (0-4) % Seg Neutrophils % % Lymphocytes % % Monocytes % % Eosinophils % % Basophils % % Neutrophils # (1.6-8.9) K/mcL Lymphocytes # (0.6-4.6) K/mcL Monocytes # (0.0-1.3) K/mcL Eosinophils # (0.0-0.6) K/mcL Basophils # (0.0-0.2) K/mcL Nucleated RBCs/100 WBC (0) /100 WBC Platelet Estimate (Normal) Sample Site ABG pH (7.32-7.45) pH Units ABG pCO2 (35-45) mmHg ABG pO2 (85-104) mmHg ABG HCO3 (21-27) mEq/L ABG Total CO2 (20-26) mEq/L ABG O2 Saturation (95-98) % ABG Base Excess (-2 to 3) mEq/L Neal Test Respiration Rate O2 Delivery Device Blood Gas Modality Inspired O2 (1-15=lpm [id number]=%) Tidal Volume cc PEEP cm H2O Sodium 136 (136-145) mEq/L Potassium 3.8 (3.5-5.1) mEq/L Chloride 92 L (98-107) mEq/L Carbon Dioxide 39 H (23-29) mEq/L BUN 70 H (8-23) mg/dL Creatinine 1.49 H (0.60-1.20) mg/dL Est GFR ( Amer) 43 L (> 60) Est GFR (Non-Af Amer) 35 L (> 60) BUN/Creatinine Ratio 47 H (6-26) Glucose 201 H (70-105) mg/dL Calculated Osmolality 308 H (280-300) Lactic Acid 0.6 (0.5-2.2) mmol/L Calcium 9.2 (8.6-10.3) mg/dL Magnesium 2.0 (1.6-2.6) mg/dL Total Bilirubin 0.3 (0.3-1.0) mg/dL AST 11 L (13-39) Units/L ALT 17 (7-52) Units/L Alkaline Phosphatase 107 H (34-104) Units/L Creatine Kinase < 10 L (30-223) Units/L Troponin I (< 0.04) ng/mL B-Natriuretic Peptide 289 H (Less than 100) pg/mL Serum Total Protein 6.5 (6.4-8.9) g/dL Albumin 2.8 L (3.5-5.7) g/dL Globulin 3.7 H (2.4-3.5) g/dL Albumin/Globulin Ratio 0.8 L (1.1-2.2) Urine Color (Yellow) Urine Clarity (Clear) Urine pH (5.0-8.0) pH Units Ur Specific Otis (1.010-1.025) Urine Protein (Neg-Trace) mg/dL Urine Glucose (UA) (Normal) mg/dL Urine Ketones (Negative) mg/dL Urine Blood (Negative) Urine Nitrite (Negative) Urine Bilirubin (Negative) Urine Urobilinogen (Normal) mg/dL Ur Leukocyte Esterase (Negative) Urine Microscopic RBC (0-3) per hpf Urine Microscopic WBC (0-3) per hpf Ur Squamous Epith Cells (None-Few) per lpf Urine Bacteria (None-Few) per hpf Hyaline Casts (None-Few) per lpf Ur Culture Indicated? (NO) Person Notif of Crit 02/26/19 02/27/19 Range/Units 23:55 00:55 WBC (4.3-11.1) K/mcL RBC (3.82-4.97) M/mcL Hgb (11.5-15.4) g/dL Hct (35.3-44.9) % MCV (83.0-100.0) fL MCH (28.0-33.3) pg MCHC (31.6-35.5) g/dL RDW (11.5-14.5) % Plt Count (140-400) K/mcL MPV (9.4-12.4) fL Immature Gran % (0-4) % Seg Neutrophils % % Lymphocytes % % Monocytes % % Eosinophils % % Basophils % % Neutrophils # (1.6-8.9) K/mcL Lymphocytes # (0.6-4.6) K/mcL Monocytes # (0.0-1.3) K/mcL Eosinophils # (0.0-0.6) K/mcL Basophils # (0.0-0.2) K/mcL Nucleated RBCs/100 WBC (0) /100 WBC Platelet Estimate (Normal) Sample Site R Radial ABG pH 7.33 (7.32-7.45) pH Units ABG pCO2 83 H* (35-45) mmHg ABG pO2 67 L (85-104) mmHg ABG HCO3 44 H (21-27) mEq/L ABG Total CO2 47 H (20-26) mEq/L ABG O2 Saturation 90 L (95-98) % ABG Base Excess 15 H (-2 to 3) mEq/L Neal Test Positive Respiration Rate 14 O2 Delivery Device BiPAP Blood Gas Modality AVAPS Inspired O2 30.0 (1-15=lpm fs74-416=%) Tidal Volume 500 cc PEEP 8 cm H2O Sodium (136-145) mEq/L Potassium (3.5-5.1) mEq/L Chloride (98-107) mEq/L Carbon Dioxide (23-29) mEq/L BUN (8-23) mg/dL Creatinine (0.60-1.20) mg/dL Est GFR ( Amer) (> 60) Est GFR (Non-Af Amer) (> 60) BUN/Creatinine Ratio (6-26) Glucose (70-105) mg/dL Calculated Osmolality (280-300) Lactic Acid (0.5-2.2) mmol/L Calcium (8.6-10.3) mg/dL Magnesium (1.6-2.6) mg/dL Total Bilirubin (0.3-1.0) mg/dL AST (13-39) Units/L ALT (7-52) Units/L Alkaline Phosphatase (34-104) Units/L Creatine Kinase (30-223) Units/L Troponin I 0.08 H* (< 0.04) ng/mL B-Natriuretic Peptide (Less than 100) pg/mL Serum Total Protein (6.4-8.9) g/dL Albumin (3.5-5.7) g/dL Globulin (2.4-3.5) g/dL Albumin/Globulin Ratio (1.1-2.2) Urine Color (Yellow) Urine Clarity (Clear) Urine pH (5.0-8.0) pH Units Ur Specific Otis (1.010-1.025) Urine Protein (Neg-Trace) mg/dL Urine Glucose (UA) (Normal) mg/dL Urine Ketones (Negative) mg/dL Urine Blood (Negative) Urine Nitrite (Negative) Urine Bilirubin (Negative) Urine Urobilinogen (Normal) mg/dL Ur Leukocyte Esterase (Negative) Urine Microscopic RBC (0-3) per hpf Urine Microscopic WBC (0-3) per hpf Ur Squamous Epith Cells (None-Few) per lpf Urine Bacteria (None-Few) per hpf Hyaline Casts (None-Few) per lpf Ur Culture Indicated? (NO) Person Notif of Ale POLANCO Attestation Statement - Attestation Attestation: I examined this patient and my medical decision-making was reviewed with the Resident Physician. I agree with the documented findings, disposition and treatment plan as described except to the extent set forth below. Patient 63-year-old female that presents to the emergency department with chief complaint of elevated potassium. Patient is from a local nursing facility in which she had labs drawn that showed that her potassium was elevated. The patient's currently states that she has no complaints although does appear to be drowsy whenever she attempts to give history. Exam the patient is morbidly obese and has significant edema of the lower extremities. There is a large pannus that does have areas that are erythematous. Medical decision management patient will undergo a laboratory study testing and EKG EKG showed no evidence of widening QRS or peaked T waves I personally supervised and was present for the lopez/critical portions of the following procedures completed by the resident:EKG.
[2019-02-26 22:46] LABS: Bacteria,Urine Many per hpf (None-Few); RBC,Urine 30-50 per hpf (0-3); Squamous Epithelial Cell,Urine Many per lpf (None-Few); WBC,Urine 30-50 per hpf (0-3)
--- NOTE | 2019-02-26 23:03 | Emergency Department Note ---
Disposition Clinical Impression: Hypercarbia Disposition: Admitted As Inpatient Condition: Fair Referrals: NONE,PCP [Primary Care Provider] - Forms: ED Satisfaction Letter, Work/School Release Time of Disposition: 00:56 General Adult HPI - General Chief complaint: ED General Medical Stated complaint: High Potassium Time Seen by Provider: 02/26/19 22:00 Source: patient, EMS Mode of arrival: EMS Limitations: physical limitation Nursing Notes Reviewed: Yes Vital Signs Reviewed: Yes - History of Present Illness HPI Narrative: 63 yo woman brought from detention in [facility] after bloodwork found K+ 6.2. She denies CP, SOB worse than baseline, dysuria, fever, V/D, AMS. She said she has been fatigued since yesterday and felt nauseous briefly accompanied by decreased appetite. Patient is frequently hospitalized for FAVIAN, most recently here in November. She is on 3L O2 at home. PMH includes T2DM, CAD, COPD, but no prior episodes of hyperkalemia. Pain Scale: 0 - Related Data Home Medications Medication Instructions Recorded Confirmed Ranitidine HCl [Heartburn Relief] 150 mg PO HS 01/18/16 11/23/18 Acetaminophen [Extra Strength 500 mg PO Q6H PRN 08/04/18 11/23/18 Non-Aspirin] Baclofen [Lioresal] 10 mg PO BID 08/04/18 11/23/18 Dulaglutide [Trulicity] 1.5 mg SQ TU 08/04/18 11/23/18 Fluorometholone [Fml Forte] 1 drop BOTH EYES 1200 08/04/18 11/23/18 Glimepiride [Amaryl] 4 mg PO BID 08/04/18 11/23/18 Insulin ASPART [Novolog Flexpen] 0 unit SQ ACHS 08/04/18 11/23/18 Insulin ASPART [Novolog Flexpen] 34 unit SQ TIDWM 08/04/18 11/23/18 Insulin Degludec [Tresiba 40 unit SQ HS 08/04/18 11/23/18 Flextouch U-100] Levalbuterol Tartrate [Xopenex Hfa] 2 puff IH 0000,0600,1200,1800 08/04/18 11/23/18 Montelukast [Singulair] 10 mg PO HS 08/04/18 11/23/18 Polyvinyl Alcohol/Povidone 1 drop OP DAILY PRN 08/04/18 11/23/18 [Artificial Tears Drops] Albuterol Sulfate [Ventolin Hfa] 2 puff IH Q4H PRN 08/28/18 11/23/18 Allopurinol [Zyloprim 300 MG] 300 mg PO QAM 08/28/18 11/23/18 Bisacodyl [Gentle Laxative] 10 mg RC DAILY PRN 08/28/18 11/23/18 Cyanocobalamin (B-12) [Vitamin B12] 1,000 mcg PO 0800 08/28/18 11/23/18 Docusate [Colace] 200 mg PO BID 08/28/18 11/23/18 Lactulose 20 gm PO DAILY PRN 08/28/18 11/23/18 Menthol [Biofreeze] 1 appl TP TID PRN 08/28/18 11/23/18 Rivaroxaban [Xarelto] 20 mg PO HS 08/28/18 11/23/18 dilTIAZem HCl [Diltiazem 24Hr ER 180 mg PO QAM 08/28/18 11/23/18 (Cd)] Cholecalciferol (Vitamin D3) 2,000 unit PO DAILY 11/13/18 11/23/18 [Vitamin D3] Polyethylene Glycol 3350 [MiraLax 17 gm PO DAILY PRN 11/13/18 11/23/18 bowel prep] Ipratropium/Albuterol Neb [Duoneb] 3 ml IH Q6HR PRN 11/23/18 11/23/18 Tramadol HCl [Ultram] 50 mg PO QID PRN 11/23/18 11/23/18 Previous Rx's Medication Instructions Recorded Carvedilol 12.5 mg PO BID 365 Days tab 11/12/18 Isosorbide MONOnitrate (24 HR) 30 mg PO DAILY 365 Days tab.er.24h 11/12/18 [Imdur] Bumetanide [Bumex] 1 mg PO BID 365 Days tablet 11/18/18 acetaZOLAMIDE [Diamox] 250 mg PO DAILY #5 tablet 11/18/18 Amoxicillin/Clavulanate [Augmentin] 500 mg PO BIDWM #10 tablet 11/25/18 Doxycycline 100 mg PO BID #10 capsule 11/25/18 Gabapentin [Neurontin] 200 mg PO TID #30 capsule 11/25/18 predniSONE [PredniSONE] 10 mg PO DAILY #12 tablet 11/25/18 Allergies Allergy/AdvReac Type Severity Reaction Status Date / Time indomethacin AdvReac Hives Verified 11/21/18 12:09 All systems ED: reviewed and negative except as stated. Gastrointestinal: Reports: nausea Endocrine: Reports: fatigue Past Medical History - Past Medical History Attestation: Yes The following information was validated with the patient. 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 Pupils equal and reactive. Cardio: Difficult to auscultate due to habitus, +pitting edema w/ diffuse blisters on BLE 2/2 CHF, palpable UE pulses, difficult palpate BLE, no cyanosis Resp: Difficult to auscultate due to habitus, no cough GI: Abdomen soft, distended, nontender to palpation. No ecchymoses, no rash. : No suprapubic tenderness or distention MSK: Unable to evaluate ROM, diffuse edema, lesions on LLE 2/2 blisters breaking open, no decubital ulcer Neuro: CNI-XII intact, unable to evaluate strength Psych: Tired - General Limitations: physical limitation General appearance: alert Course Course Narrative: VS stable. EKG, troponin, BMP, ABG, CXR, CT head, CMP, Mg, CBC, UA, lactate ordered. - Reevaluation(s) Reevaluation #1: VS stable, patient on BiPap. Multiple attempts to draw blood for CMP, CBC, Mg. Sent to lab at 2355. Time: 23:50 Vital Signs Temperature 97.6 F 02/26/19 22:04 Pulse Rate 77 02/26/19 22:04 Respiratory Rate 18 02/26/19 22:04 Blood Pressure 142/62 02/26/19 22:04 O2 Sat by Pulse Oximetry 91 02/26/19 22:04 Temperature 97.6 F 02/26/19 22:04 Pulse Rate 77 02/26/19 22:04 Respiratory Rate 21 02/26/19 23:30 Blood Pressure 138/59 02/26/19 23:30 O2 Sat by Pulse Oximetry 98 02/26/19 23:30 Oxygen Delivery Oxygen Delivery Nasal Cannula Medical Decision Making - [facility] Narrative Medical decision making narrative: VS stable, ABG consistent with respiratory acidosis 2/2 acute on chronic hypercapnia. CT head, CXR with no acute changes. UA consistent with UTI. Patient placed on BiPap. Started zosyn/vanc based on past susceptibility report. Repeat K+ 3.8. Repeat ABG after 1 hr BiPAP pending. Plan to admit patient after consultation with hospitalist. - Medical Records Medical records reviewed: Yes I reviewed the patient's medical records. - Lab Data Lab results reviewed: Yes I reviewed the patient's lab results. Lab Results 02/26/19 02/26/19 Range/Units 22:32 23:00 Sample Site R Radial ABG pH 7.27 L (7.32-7.45) pH Units ABG pCO2 93 H* (35-45) mmHg ABG pO2 74 L (85-104) mmHg ABG HCO3 43 H (21-27) mEq/L ABG Total CO2 46 H (20-26) mEq/L ABG O2 Saturation 91 L (95-98) % ABG Base Excess 13 H (-2 to 3) mEq/L Neal Test Positive O2 Delivery Device Cannula Inspired O2 32.0 (1-15=lpm [id number]=%) Urine Color Yellow (Yellow) Urine Clarity Cloudy A (Clear) Urine pH 5.0 (5.0-8.0) pH Units Ur Specific [place] 1.020 (1.010-1.025) Urine Protein Negative (Neg-Trace) mg/dL Urine Glucose (UA) Normal (Normal) mg/dL Urine Ketones Negative (Negative) mg/dL Urine Blood Large H (Negative) Urine Nitrite Negative (Negative) Urine Bilirubin Small H (Negative) Urine Urobilinogen Normal (Normal) mg/dL Ur Leukocyte Esterase Moderate H (Negative) Urine Microscopic RBC 30-50 H (0-3) per hpf Urine Microscopic WBC 30-50 H (0-3) per hpf Ur Squamous Epith Cells Many H (None-Few) per lpf Urine Bacteria Many H (None-Few) per hpf Hyaline Casts Moderate H (None-Few) per lpf Ur Culture Indicated? YES A (NO) Person Notif of Ale HARPER - Radiology Data Radiology results reviewed: Yes I reviewed the patient's radiology results. Chest X-Ray 02/26/19 23:04 IMPRESSION: Right basilar atelectasis or pneumonitis. D/ / Yuriy Noriega MD / Yuriy Noriega MD Interpreting Provider: Yuriy Noriega MD Head CT 02/26/19 23:27 IMPRESSION: Atrophy and mild small vessel ischemic disease. If there is strong clinical concern for acute on chronic ischemia, consider MR. D/ / Yuriy Noriega MD / Yuriy Noriega MD Interpreting Provider: Yuriy Noriega MD - EKG Data EKG #1 EKG attestation: Yes I reviewed and interpreted this EKG. EKG shows normal: sinus rhythm Rate: normal Rhythm: NSR Interpretation: no acute changes, unchanged when compared to prior tracing (date) (11/21/18)
[2019-02-26 23:05] LABS: ABG Base Excess 13 mEq/L (-2 to 3); ABG HCO3 43 mEq/L (21-27); ABG Oxygen Saturation 91 % (95-98); ABG PCO2 93 mmHg (35-45); ABG PH 7.27 pH Units (7.32-7.45); ABG PO2 74 mmHg (85-104); ABG TCO2 46 mEq/L (20-26)
[2019-02-26 23:06] LABS: Hyaline Casts,Urine Moderate per lpf (None-Few)
[2019-02-26] MEDS ORDERED: Piperacillin/Tazobactam 3.375 GM in Water for inj. (sterile) 20 ML IVP ONE (23:36)
[2019-02-26] MEDS ORDERED: Piperacillin/Tazobactam 3.375 GM in 0.9 % Sodium Chloride Mini Bag 100 ML IVPB ONE (23:59)
[2019-02-27 00:15] LABS: Basophils % 0.3 %; Eosinophils % 0.7 %; Lymphocytes % 11.4 %; Nucleated Red Blood Cells 0.5 /100 WBC (0); Red Cell Distribution Width 16.1 % (11.5-14.5)
[2019-02-27 00:16] LABS: Basophils # 0.1 K/mcL (0.0-0.2); Eosinophils # 0.2 K/mcL (0.0-0.6); Hematocrit 31.6 % (35.3-44.9); Hemoglobin 9.2 g/dL (11.5-15.4); Immature Granulocytes % 2.4 % (0-4); Lymphocytes # 3.1 K/mcL (0.6-4.6); Mean Corpuscular HGB Conc 29.1 g/dL (31.6-35.5); Mean Corpuscular Hemoglobin 28.3 pg (28.0-33.3); Mean Corpuscular Volume 97.2 fL (83.0-100.0); Mean Platelet Volume 10.8 fL (9.4-12.4); Monocytes # 0.8 K/mcL (0.0-1.3); Monocytes % 2.9 %; Platelet Count 390 K/mcL (140-400); Red Blood Count 3.25 M/mcL (3.82-4.97); Segmented Neutrophils % 82.3 %; White Blood Count 27.4 K/mcL (4.3-11.1)
[2019-02-27 00:20] LABS: Neutrophils # 22.6 K/mcL (1.6-8.9)
[2019-02-27 00:32] LABS: Alanine Aminotransferase 17 Units/L (7-52); Albumin 2.8 g/dL (3.5-5.7); Albumin/Globulin Ratio 0.8 (1.1-2.2); Alkaline Phosphatase 107 Units/L (34-104); Aspartate Amino Transferase 11 Units/L (13-39); BUN/Creatinine Ratio 47 (6-26); Bilirubin,Total 0.3 mg/dL (0.3-1.0); Blood Urea Nitrogen 70 mg/dL (8-23); Calcium 9.2 mg/dL (8.6-10.3); Carbon Dioxide 39 mEq/L (23-29); Chloride 92 mEq/L (98-107); Creatine Kinase < 10 Units/L (30-223); Globulin 3.7 g/dL (2.4-3.5); Glucose 201 mg/dL (70-105); Osmolality,Calculated 308 (280-300); Potassium 3.8 mEq/L (3.5-5.1); Sodium 136 mEq/L (136-145); Total Protein 6.5 g/dL (6.4-8.9); eGFR For African Americans 43 (> 60); eGFR For Non-African Americans 35 (> 60)
[2019-02-27] MEDS ORDERED: Aspirin 325 MG TABLET PO ONE (00:39)
[2019-02-27 00:45] LABS: Platelet Estimate Normal (Normal)
[2019-02-27 01:00] LABS: ABG Base Excess 15 mEq/L (-2 to 3); ABG HCO3 44 mEq/L (21-27); ABG Oxygen Saturation 90 % (95-98); ABG PCO2 83 mmHg (35-45); ABG PH 7.33 pH Units (7.32-7.45); ABG PO2 67 mmHg (85-104); ABG TCO2 47 mEq/L (20-26); Blood Gas Modality AVAPS; Blood Gas PEEP 8 cm H2O; Blood Gas VT 500 cc
[2019-02-27] MEDS ORDERED: Ipratropium/Albuterol Neb 3 ML IH PRN (01:17)
[2019-02-27] MEDS ORDERED: *HR* Dextrose 50 % in Water (Syg) 50 ML SYRINGE IVP PRN (01:21)
[2019-02-27] MEDS ORDERED: Dextrose Gel 15 GM/37.5 ML TUBE PO PRN ×2 (01:21)
--- NOTE | 2019-02-27 01:49 | Internal Med History&Physical ---
Date of Encounter: 02/27/19 Time of Encounter: 01:48 Internal Medicine - H&P: HPI Chief complaint: abnormal lab Admitted From: Long-term Nursing Facility Plans for Post Hospital Care: Home History of present illness: Katie Reynoso is a 63-year-old morbidly obese woman with COPD, obstructive sleep apnea/obesity hypoventilation syndrome, venous thromboembolic disease and diabetes who was sent to emergency room from her detention because routine blood work was drawn and reportedly was seen to have a potassium level of 6.4. On arrival here her serum chemistry revealed a potassium of 3.8 by lab work was also notable for a leukocyte count of 27. She was noted to become progressively more lethargic and fatigued so a blood gas was done showing a PCO2 of 93 with pH of 7.27. She was placed on BiPAP and 2 hours later the repeat ABG showed some improvement. Chest x-ray revealed no focal infiltrates per se. Urinalysis obtained via straight catheter revealed moderate leukocyte esterase and pyuria. She was started on empiric antibiotics and is admitted for further care. The time of my assessment she is more conversant and says that in the detention she was starting to have blurry vision and diplopia, feeling notably fatigued and lethargic but now feels better. She cannot D9-year-old firm having dysuria as she says the urine just comes out she moves. She denies chest pain, productive cough, fever and chills. Vitals: Reviewed General: Morbidly obese white woman lying in bed in no acute distress. Skin: Warm, moist with multiple skin tags and skin dimpling. HEENT: Slightly dry mucous membranes. No conjunctivae pallor. Neck: Short and thick Chest: Reduced thoracic expansion with diminished breath sounds globally due to adiposity. Heart: Normal S1 & S2; rhythmic. Abdomen: Obese, soft and non-tender to palpation. No peritoneal reaction. Extremities: No clubbing, cyanosis. Edematous. Neurological: Awake, alert and oriented to person, place and time. No focal d eficits. Psych: Affect appropriate. Assessment/Plan 1. Acute on chronic hypercarbic respiratory failure: Seemingly multifactorial in the setting of OHS/NICOL with underlying COPD. Her adherence to NIPPV at the detention is not known. Will keep her on Bipap all night and repeat an ABG over the next few hours. Administer bronchodilator therapy. She has a chronic PCO2 elevation and seemingly has a high baseline therefore her clinical countenance would need to be taken into consideration more so than the number. No evidence of pneumonia on x-ray. 2. UTI: She has a longstanding history of UTIs but also likely has a significant amount of contamination given the severe obesity. Taking into account the leukocytosis and her general state, will continue PipTazo started since she has a history of ESBL organisms pending urine culture finalization. 3. Morbid obesity: She would benefit from bariatric surgery however given her comorbidities this might not be feasible. 4. Diabetes: As she is nothing by mouth we will put her on low intensity insulin sliding scale for now until her diet was advanced. Past Med Surg Social Fam HX - Past Medical History Medical history: atrial fibrillation, CHF, diabetes, GERD, hypertension, pulmonary embolus, renal disease, other Additional medical history: chronic respr failure. hypoxemia. cellulitis left lower limb. histroy of pe Psychiatric history: anxiety, depression - Past Surgical History Surgical History: hysterectomy Additional surgical history: thyroid cyst removed. left knee replacement - Social History Smoking Status: Never smoker Smokeless Tobacco Status: No Alcohol use: none Drug use: none - Family History Father Adopted: No Living Status: Hx Family Cardiac Disorders: Yes (heart attack) Hx Family Respiratory Disorders: Yes Hx Family Cancer: No Hx Family GI Disorders: No Hx Family Endocrine Disorder: No Hx Family Neuromuscular Disorders: No Hx Family Neurologic Disorders: No Hx Family HEENT Disorders: No Hx Family Autoimmune Disorders: No Mother Adopted: No Family Member Ethnicity: Non- Living Status: Hx Family Cardiac Disorders: No Hx Family Respiratory Disorders: Yes Hx Family Cancer: No Hx Family GI Disorders: No Hx Family Endocrine Disorder: No Hx Family Neuromuscular Disorders: No Hx Family Neurologic Disorders: No Hx Family HEENT Disorders: No Hx Family Autoimmune Disorders: No Internal Medicine - H&P: Meds Ranitidine HCl [Heartburn Relief] 150 mg PO HS 01/18/16 [History] Acetaminophen [Extra Strength Non-Aspirin] 500 mg PO Q6H PRN 08/04/18 [History] Baclofen [Lioresal] 10 mg PO BID 08/04/18 [History] Dulaglutide [Trulicity] 1.5 mg SQ TU 08/04/18 [History] Fluorometholone [Fml Forte] 1 drop BOTH EYES 1200 08/04/18 [History] Glimepiride [Amaryl] 4 mg PO BID 08/04/18 [History] Insulin ASPART [Novolog Flexpen] 0 unit SQ ACHS 08/04/18 [History] Insulin ASPART [Novolog Flexpen] 34 unit SQ TIDWM 08/04/18 [History] Insulin Degludec [Tresiba Flextouch U-100] 40 unit SQ HS 08/04/18 [History] Levalbuterol Tartrate [Xopenex Hfa] 2 puff IH 0000,0600,1200,1800 08/04/18 [H istory] Montelukast [Singulair] 10 mg PO HS 08/04/18 [History] Polyvinyl Alcohol/Povidone [Artificial Tears Drops] 1 drop OP DAILY PRN 08/04/18 [History] Albuterol Sulfate [Ventolin Hfa] 2 puff IH Q4H PRN 08/28/18 [History] Allopurinol [Zyloprim 300 MG] 300 mg PO QAM 08/28/18 [History] Bisacodyl [Gentle Laxative] 10 mg RC DAILY PRN 08/28/18 [History] Cyanocobalamin (B-12) [Vitamin B12] 1,000 mcg PO 0800 08/28/18 [History] Docusate [Colace] 200 mg PO BID 08/28/18 [History] Lactulose 20 gm PO DAILY PRN 08/28/18 [History] Menthol [Biofreeze] 1 appl TP TID PRN 08/28/18 [History] Rivaroxaban [Xarelto] 20 mg PO HS 08/28/18 [History] dilTIAZem HCl [Diltiazem 24Hr ER (Cd)] 180 mg PO QAM 08/28/18 [History] Carvedilol 12.5 mg PO BID 365 Days tab 11/12/18 [Rx] Isosorbide MONOnitrate (24 HR) [Imdur] 30 mg PO DAILY 365 Days tab.er.24h 11/12/18 [Rx] Cholecalciferol (Vitamin D3) [Vitamin D3] 2,000 unit PO DAILY 11/13/18 [History] Polyethylene Glycol 3350 [MiraLax bowel prep] 17 gm PO DAILY PRN 11/13/18 [History] Bumetanide [Bumex] 1 mg PO BID 365 Days tablet 11/18/18 [Rx] acetaZOLAMIDE [Diamox] 250 mg PO DAILY #5 tablet 11/18/18 [Rx] Ipratropium/Albuterol Neb [Duoneb] 3 ml IH Q6HR PRN 11/23/18 [History] Tramadol HCl [Ultram] 50 mg PO QID PRN 11/23/18 [History] Amoxicillin/Clavulanate [Augmentin] 500 mg PO BIDWM #10 tablet 11/25/18 [Rx] Doxycycline 100 mg PO BID #10 capsule 11/25/18 [Rx] Gabapentin [Neurontin] 200 mg PO TID #30 capsule 11/25/18 [Rx] predniSONE [PredniSONE] 10 mg PO DAILY #12 tablet 11/25/18 [Rx] Allergy/AdvReac Type Severity Reaction Status Date / Time indomethacin AdvReac Hives Verified 11/21/18 12:09 All Systems PM: A 10-system review of systems was performed and is negative for pertinent findings except as documented above in the HPI. - Constitutional Vitals: Temp Pulse Resp BP Pulse Ox 97.6 F 64 17 139/68 100 02/26/19 22:04 02/27/19 01:03 02/27/19 01:03 02/27/19 01:03 02/27/19 01:03 Exam: . Internal Med - H&P Results - Labs CBC & Chem 7: 02/26/19 23:55 02/26/19 23:55 Labs: Short CBC 02/26/19 Range/Units 23:55 WBC 27.4 H (4.3-11.1) K/mcL Hgb 9.2 L (11.5-15.4) g/dL Hct 31.6 L (35.3-44.9) % Plt Count 390 (140-400) K/mcL Neutrophils # 22.6 H (1.6-8.9) K/mcL BMP 02/26/19 23:55 Sodium 136 Potassium 3.8 Chloride 92 L Carbon Dioxide 39 H BUN 70 H Creatinine 1.49 H Glucose 201 H Calcium 9.2 Cardiac Enzymes 02/26/19 Range/Units 23:55 Troponin I 0.08 H* (< 0.04) ng/mL Liver Function 02/26/19 Range/Units 23:55 Total Bilirubin 0.3 (0.3-1.0) mg/dL AST 11 L (13-39) Units/L ALT 17 (7-52) Units/L Alkaline Phosphatase 107 H (34-104) Units/L Albumin 2.8 L (3.5-5.7) g/dL Urine 02/26/19 Range/Units 22:32 Urine Color Yellow (Yellow) Urine Clarity Cloudy A (Clear) Urine pH 5.0 (5.0-8.0) pH Units Ur Specific [place] 1.020 (1.010-1.025) Urine Protein Negative (Neg-Trace) mg/dL Urine Glucose (UA) Normal (Normal) mg/dL - ABG Interpretation ABG results: 02/26/19 02/27/19 23:00 00:55 ABG pH 7.27 L 7.33 ABG pCO2 93 H* 83 H* ABG pO2 74 L 67 L ABG HCO3 43 H 44 H ABG Total CO2 46 H 47 H ABG O2 Saturation 91 L 90 L ABG Base Excess 13 H 15 H - Impressions ITS Impressions Chest X-Ray 02/26/19 23:04 IMPRESSION: Right basilar atelectasis or pneumonitis. D/ / Yuriy Noriega MD / Yuriy Noriega MD Interpreting Provider: Yuriy Noriega MD Head CT 02/26/19 23:27 IMPRESSION: Atrophy and mild small vessel ischemic disease. If there is strong clinical concern for acute on chronic ischemia, consider MR. D/ / Yuriy Noriega MD / Yuriy Noriega MD Interpreting Provider: Yuriy Noriega MD - Time Spent With Patient Total time spent is greater than 50% in coordination of care (as documented) at patient's floor/unit and/or counseling patient:
[2019-02-27] MEDS: Ipratropium/Albuterol Neb 3 ML IH SCH ×2 (03:57→07:54)
[2019-02-27 05:02] LABS: ABG Base Excess 15 mEq/L (-2 to 3); ABG HCO3 43 mEq/L (21-27); ABG Oxygen Saturation 92 % (95-98); ABG PCO2 77 mmHg (35-45); ABG PH 7.36 pH Units (7.32-7.45); ABG PO2 69 mmHg (85-104); ABG TCO2 46 mEq/L (20-26); Blood Gas Modality AVAPS; Blood Gas PEEP 8 cm H2O
[2019-02-27 05:37] LABS: Basophils % 0.2 %; Eosinophils # 0.2 K/mcL (0.0-0.6); Eosinophils % 0.9 %; Hematocrit 29.7 % (35.3-44.9); Hemoglobin 8.6 g/dL (11.5-15.4); Lymphocytes # 2.5 K/mcL (0.6-4.6); Mean Corpuscular Hemoglobin 28.5 pg (28.0-33.3); Mean Corpuscular Volume 98.3 fL (83.0-100.0); Mean Platelet Volume 10.9 fL (9.4-12.4); Monocytes # 0.8 K/mcL (0.0-1.3); Monocytes % 3.5 %; Neutrophils # 18.4 K/mcL (1.6-8.9); Nucleated Red Blood Cells 0.6 /100 WBC (0); Platelet Count 367 K/mcL (140-400); Red Blood Count 3.02 M/mcL (3.82-4.97); Red Cell Distribution Width 16.2 % (11.5-14.5); Segmented Neutrophils % 82.4 %; White Blood Count 22.3 K/mcL (4.3-11.1)
[2019-02-27 05:58] LABS: Calcium 9.2 mg/dL (8.6-10.3); Potassium 3.7 mEq/L (3.5-5.1)
[2019-02-27] MEDS ORDERED: Insulin LISPRO 300 UNITS/3 ML VIAL SQ SCH (06:00)
[2019-02-27] MEDS: Piperacillin/Tazobactam 3.375 GM in 0.9 % Sodium Chloride Mini Bag 100 ML IVPB SCH ×2 (07:38→16:34)
[2019-02-27] MEDS: *HR* Heparin 5,000 UNIT/ML VIAL SQ SCH ×2 (07:39→16:34)
[2019-02-27] MEDS ORDERED: Artificial Tears SOLN 15 ML BOTTLE BOTH EYES PRN (07:50)
[2019-02-27] MEDS: Isosorbide MONOnitrate (24 HR) 30 MG TAB.ER.24H PO SCH (09:51)
[2019-02-27] MEDS: Baclofen 10 MG TABLET PO SCH ×2 (09:51→21:34)
[2019-02-27] MEDS: Diltiazem CD (24hr) 180 MG CAPSULE PO SCH (09:51)
--- NOTE | 2019-02-27 11:33 | Event Note ---
Date of Encounter: 02/27/19 Time of Encounter: 10:15 H&P reviewed. 63-year-old female with morbid obesity with NICOL/obesity hypoventilation syndrome, COPD, diabetes, HFpEF, atrial fibrillation, chronic hypoxic/hypercarbic respiratory failure, medical non-compliance to diuretics and NIPPV, was admitted overnight due to incidental finding of potassium of 6.4. In our ED, her potassium was noted to be 3.8 but workup showed leukocytosis of 27. Patient was also noted to be progressively more lethargic and ABG showed acute on chronic respiratory acidosis. CXR did not show any benito consolidations but urinalysis did show moderate LE and pyuria. Patient did admit to having urinary frequency recently. Patient is diagnosed with acute on chronic hypercapnic respiratory failure as well as acute metabolic encephalopathy secondary to acute cystitis and polypharmacy. Patient was placed on BiPAP and started on Zosyn with clinical improvement overnight. We will continue the antibiotics, follow up on blood/urine cultures, and will attempt to keep her off BiPAP today. Resume home meds once reconciled including diuretics and anticoagulation. Hold off on sedatives for now.
[2019-02-27 11:45] LABS: Troponin I 0.03 ng/mL (< 0.04)
[2019-02-27] MEDS: Insulin LISPRO 300 UNITS/3 ML VIAL SQ SCH (16:06)
[2019-02-27] MEDS ORDERED: *HR* Rivaroxaban 10 MG TABLET PO SCH (17:00)
[2019-02-27] MEDS ORDERED: Famotidine 20 MG TABLET PO SCH (21:00)
[2019-02-28] MEDS: Piperacillin/Tazobactam 3.375 GM in 0.9 % Sodium Chloride Mini Bag 100 ML IVPB SCH ×4 (00:41→23:32)
[2019-02-28 03:34] LABS: Basophils % 0.3 %; Hemoglobin 8.2 g/dL (11.5-15.4); Nucleated Red Blood Cells 0.6 /100 WBC (0); Red Cell Distribution Width 15.9 % (11.5-14.5)
[2019-02-28 03:36] LABS: Basophils # 0.1 K/mcL (0.0-0.2); Eosinophils # 0.3 K/mcL (0.0-0.6); Eosinophils % 2.1 %; Hematocrit 28.2 % (35.3-44.9); Immature Granulocytes % 1.8 % (0-4); Lymphocytes % 20.7 %; Mean Corpuscular HGB Conc 29.1 g/dL (31.6-35.5); Mean Corpuscular Hemoglobin 28.1 pg (28.0-33.3); Mean Corpuscular Volume 96.6 fL (83.0-100.0); Monocytes # 0.7 K/mcL (0.0-1.3); Monocytes % 4.4 %; Platelet Count 374 K/mcL (140-400); Red Blood Count 2.92 M/mcL (3.82-4.97); Segmented Neutrophils % 70.7 %; White Blood Count 15.2 K/mcL (4.3-11.1)
[2019-02-28 03:40] LABS: Lymphocytes # 3.2 K/mcL (0.6-4.6); Neutrophils # 10.8 K/mcL (1.6-8.9)
[2019-02-28 04:00] LABS: Hypochromasia Present (Not Present); Platelet Estimate Normal (Normal); Stomatocytes 2+ (Not Present)
[2019-02-28 04:01] LABS: Calcium 8.9 mg/dL (8.6-10.3); Potassium 3.7 mEq/L (3.5-5.1)
[2019-02-28] MEDS: Isosorbide MONOnitrate (24 HR) 30 MG TAB.ER.24H PO SCH (09:00)
[2019-02-28] MEDS: Pantoprazole 40 MG VIAL IVP SCH ×2 (09:00→16:33)
[2019-02-28] MEDS: Baclofen 10 MG TABLET PO SCH ×2 (09:00→21:03)
[2019-02-28] MEDS: Diltiazem CD (24hr) 180 MG CAPSULE PO SCH (09:00)
[2019-02-28] MEDS: FLUoxetine 20 MG CAPSULE PO SCH (09:00)
[2019-02-28] MEDS: Insulin LISPRO 300 UNITS/3 ML VIAL SQ SCH ×3 (09:12→16:33)
[2019-02-28 10:17] LABS: % Iron Saturation 7 % (15-50); Iron 20 mcg/dL (50-170); Transferrin 195 mg/dL (203-362)
[2019-02-28] MEDS ORDERED: Levalbuterol 1 PUFF INHALER IH SCH ×2 (10:32→16:00)
--- NOTE | 2019-02-28 10:36 | Internal Med Progress Note ---
Hospitalist Progress Note - Encounter Date of Encounter: 02/28/19 Time of Encounter: 08:45 - Subjective Interval History: Patient was able to remain off BiPAP through daytime yesterday. Developed epistasis this morning which was controlled with manual compression. Denies any worsening shortness of breath or cough. No hemoptysis, hematemesis, melena, hematochezia, or bright red blood per rectum. Afebrile overnight. - Exam Vitals: Temp Pulse Resp BP Pulse Ox 98 F 62 26 168/73 96 02/28/19 07:04 02/28/19 07:04 02/28/19 07:04 02/28/19 07:04 02/28/19 07:04 Exam: Vitals: Reviewed General: Morbidly obese white woman lying in bed in no acute distress. Chest: diminished lung sounds Heart: distant heart sounds, unable to appreciate any significant murmur Abdomen: Obese abdomen, soft and non-tender Extremities: No clubbing, cyanosis. Edematous. Neurological: Awake, alert and oriented to person, place and time. No focal deficits. - Assessment and Plan (1) Acute and chronic respiratory failure with hypercapnia Current Visit: Yes Status: Acute Assessment and Plan: Was initially transferred from nursing facility due to concern of hyperkalemia but was noted to be lethargic on arrival and ABG showed on chronic respiratory acidosis Pt has long-standing history of medication and BiPAP noncompliance. Also on multiple sedating agents No evidence of pneumonia or benito fluid overload Clinically improved with BiPAP, will continue to use when necessary at bedtime (2) Urinary tract infection Current Visit: Yes Status: Acute Assessment and Plan: Another incidental finding of leukocytosis of 27 in addition to urinalysis positive for moderate leukocyte esterase Clinically improving on IV Zosyn, continue Follow-up on blood and urine culture. (3) APRYL (acute kidney injury) Current Visit: Yes Status: Acute Assessment and Plan: Associated with UTI as above, creatinine downtrending Continue to hold off on Bumex (4) Anemia Current Visit: Yes Status: Acute Assessment and Plan: Baseline hemoglobin appears to be around 10-11, presented with 9.2 and now dropped to 8.2 she did have bouts of epistaxis this morning which was controlled with manual compression No signs and symptoms of GI bleed Check iron panel and FOBT Hold off on Xarelto for now, start PPI BID trend H&H, if it continues to drop, will consult GI (5) Morbid obesity with BMI of 70 and over, adult Current Visit: No Status: Chronic (6) Obesity hypoventilation syndrome Current Visit: No Status: Chronic Assessment and Plan: BiPAP as above for respiratory failure (7) A-fib Current Visit: No Status: Chronic Assessment and Plan: Xarelto on hold due to worsening anemia continue cardizem (8) Diabetes mellitus Current Visit: No Status: Chronic Assessment and Plan: Low-dose sliding scale (9) NICOL (obstructive sleep apnea) Current Visit: No Status: Chronic - Time Spent with Patient Total time spent is greater than 50% in coordination of care (as documented) at patient's floor/unit and/or counseling patient: 25 - 35 minutes Plan of Care Discussed with: patient Internal Medicine: Result - Labs CBC & Chem 7: 02/28/19 02:31 02/28/19 02:31 Labs: Short CBC 02/28/19 Range/Units 02:31 WBC 15.2 H (4.3-11.1) K/mcL Hgb 8.2 L (11.5-15.4) g/dL Hct 28.2 L (35.3-44.9) % Plt Count 374 (140-400) K/mcL Neutrophils # 10.8 H (1.6-8.9) K/mcL BMP 02/27/19 02/28/19 04:36 02:31 Sodium 140 140 Potassium 3.7 3.7 Chloride 95 L 94 L Carbon Dioxide 40 H* 40 H* BUN 71 H 68 H Creatinine 1.47 H 1.38 H Glucose 133 H 114 H Calcium 9.2 8.9 Cardiac Enzymes 02/27/19 Range/Units 04:36 Troponin I 0.03 (< 0.04) ng/mL - ABG Interpretation ABG results: ABG ABG pH 7.36 pH Units (7.32-7.45) 02/27/19 04:56 ABG pCO2 77 mmHg (35-45) H* 02/27/19 04:56 ABG pO2 69 mmHg (85-104) L 02/27/19 04:56 ABG O2 Saturation 92 % (95-98) L 02/27/19 04:56 Consult Discharge Plan - Plan Referrals: NONE,PCP [Primary Care Provider] - (4) Anemia Qualifiers: Anemia type: unspecified type Qualified Code(s): D64.9 - Anemia, unspecified (7) A-fib Qualifiers: Atrial fibrillation type: paroxysmal Qualified Code(s): I48.0 - Paroxysmal atrial fibrillation (8) Diabetes mellitus Qualifiers: Diabetes mellitus type: type 2 Diabetes mellitus risk control analyst insulin use: with risk control analyst use Diabetes mellitus complication status: without complication Qualified Code(s): E11.9 - Type 2 diabetes mellitus without complications; Z79.4 - custodial (current) use of insulin
[2019-02-28 12:32] LABS: Hematocrit 30.7 % (35.3-44.9)
--- NOTE | 2019-02-28 13:05 | Electrocardiograph Report ---
[place] [id number] Test Date: 2019-02-26 Pat Name: Katie Reynoso Department: [id number] Room: [facility] Gender: F [employer] Supervisor: : [id number] Requested By: Christine Ortega Order Number: [id number] Reading MD: Jeremie Robertson Measurements Intervals [place] Rate: 75 P: 40 CO: 192 QRS: 88 QRSD: 114 T: 3 QT: 385 QTc: 430 Interpretive Statements Sinus rhythm Poor R wave progression Electronically Signed On 02-28-2019 13:04:03 EDT by Jeremie Robertson
[2019-02-28] MEDS ORDERED: Perflutren Lipid Microsphere 1.3 ML in 0.9 % Sodium Chloride 8.7 ML IVP ONE (13:48)
[2019-02-28] MEDS: Ondansetron 4 MG/2 ML VIAL IVP PRN (15:00)
[2019-03-01 03:47] LABS: Calcium 8.4 mg/dL (8.6-10.3); Magnesium 2.1 mg/dL (1.6-2.6); Potassium 3.9 mEq/L (3.5-5.1)
[2019-03-01 03:53] LABS: Basophils % 0.4 %; Eosinophils % 1.8 %; Hemoglobin 8.1 g/dL (11.5-15.4); Nucleated Red Blood Cells 0.3 /100 WBC (0); Red Cell Distribution Width 15.9 % (11.5-14.5)
[2019-03-01 03:54] LABS: Eosinophils # 0.2 K/mcL (0.0-0.6); Hematocrit 28.1 % (35.3-44.9); Immature Granulocytes % 1.8 % (0-4); Lymphocytes % 29.7 %; Mean Corpuscular HGB Conc 28.8 g/dL (31.6-35.5); Mean Corpuscular Hemoglobin 28.1 pg (28.0-33.3); Mean Corpuscular Volume 97.6 fL (83.0-100.0); Monocytes # 0.6 K/mcL (0.0-1.3); Monocytes % 5.7 %; Platelet Count 386 K/mcL (140-400); Red Blood Count 2.88 M/mcL (3.82-4.97); Segmented Neutrophils % 60.6 %
[2019-03-01 04:05] LABS: Neutrophils # 6.1 K/mcL (1.6-8.9)
[2019-03-01 05:11] LABS: Platelet Estimate Normal (Normal)
[2019-03-01 05:12] LABS: Anisocytosis 1+ (Not Present); Hypochromasia Present (Not Present)
[2019-03-01] MEDS: Pantoprazole 40 MG VIAL IVP SCH ×2 (05:59→17:05)
[2019-03-01] MEDS: Insulin LISPRO 300 UNITS/3 ML VIAL SQ SCH ×3 (08:41→17:05)
[2019-03-01] MEDS ORDERED: Iron Sucrose Complex 200 MG in 0.9 % Sodium Chloride 100 ML IVPB ONE (09:00)
[2019-03-01] MEDS: Isosorbide MONOnitrate (24 HR) 30 MG TAB.ER.24H PO SCH (09:44)
[2019-03-01] MEDS: Diltiazem CD (24hr) 180 MG CAPSULE PO SCH (09:44)
[2019-03-01] MEDS: Piperacillin/Tazobactam 3.375 GM in 0.9 % Sodium Chloride Mini Bag 100 ML IVPB SCH (09:45)
[2019-03-01] MEDS: FLUoxetine 20 MG CAPSULE PO SCH (09:45)
[2019-03-01] MEDS: Baclofen 10 MG TABLET PO SCH ×2 (09:45→19:31)
--- NOTE | 2019-03-01 10:15 | Gastroenterology Consult Note ---
<Chanelle Rivera - Last Filed: 03/01/19 15:45> Date of Encounter: 03/01/19 Time of Encounter: 10:08 - Assessment and plan (1) Anemia Current Visit: Yes Status: Acute Assessment and plan: Presented to [facility] on 02/26/19 from nursing facility Presentation she was noted to have hypoxia with hypercapnia secondary to obesity hypoventilation Her labs showed hemoglobin of 9.2 with MCV of 97.2, her baseline hemoglobin is 10.0 She is on xarelto outpatient She stays in nursing facility due to decreased mobility she is unsure if she has hematochezia or melena as she does not see her stools She is denying hematemesis but did report nausea which was resolved after receiving Zofran yesterday She has never had an EGD or colonoscopy in the past Does report pain with defecation and one bowel movement per week Please continue IV Venofer for iron deficiency anemia first dose on 03/01/19 second dose should be on 03/03/19 and last dose should be on 03/05/19 Ordered B12 and folate levels, replace if needed Can continue oral ferrous sulfate upon discharge At this time patient is hesitant to get any further procedures and due to her morbid obesity will be high risk Continue medical magement and can consider further endoscopy if signs of occult bleeding Qualifiers: Anemia type: unspecified type Qualified Code(s): D64.9 - Anemia, unspecified - Time Spent With Patient Total time spent is greater than 50% in coordination of care (as documented) at patient's floor/unit and/or counseling patient: GI History of Present Illness - Data of Consult Requesting Physician: Barak Lyn MD - Consult Narrative History of present illness: Ms. Reynoso is a 63 year old female with past medical history of obesity hypoventilation, COPD, TTE, diabetes who presented from outside nursing facility due to elevated potassium noted to be 6.4. On arrival she had WBC of 27 she was additionally lethargic and fatigued. Her ABG showed PCO2 of 93 with pH of 7.27 she was placed on BiPAP. Her urinalysis showed Klebsiella UTI. On admission she was also noted to have hemoglobin of 9.2 her baseline hemoglobin appears to be 10. When comparing previous hemoglobin levels her normal hemoglobin was on 10/08/15 with level of 13.1 and her hemoglobin has been decreasing thereafter. She is unsure as to why and unable to see her bowel movements, therefore cannot elicit if she is having hematochezia or melena. She does complain of pain with bowel movements but is unsure if she has hemorrhoids she has never had colonoscopy in the past. Additionally she does report chronic constipation with one bowel movement per week. This morning she was seen at bedside wearing the BiPAP resting comfortably. Upon discussion with her she did report significant nausea yesterday without any emesis she denies any epigastric pain or dysphasia. She has never had an EGD in the past. When discussing family history she reported one of her grandparents had stomach cancer additionally reported colitis and her brother and her uncle. She is denying abdominal pain, emesis, chest pain, further nausea this morning. She is unsure at this time she wants to get an EGD or colonoscopy because of previous discussion with anesthesia and risk of anesthesia given her weight. Past Med Surg Social Fam HX - Past Medical History Medical history: atrial fibrillation, CHF, diabetes, GERD, hypertension, pulmonary embolus, renal disease, other Additional medical history: chronic respr failure. hypoxemia. cellulitis left lower limb. histroy of pe Psychiatric history: anxiety, depression - Past Surgical History Surgical History: hysterectomy Additional surgical history: thyroid cyst removed. left knee replacement - Social History Smoking Status: Never smoker Smokeless Tobacco Status: No Alcohol use: none Drug use: none - Family History Father Adopted: No Living Status: Hx Family Cardiac Disorders: Yes (heart attack) Hx Family Respiratory Disorders: Yes Hx Family Cancer: No Hx Family GI Disorders: No Hx Family Endocrine Disorder: No Hx Family Neuromuscular Disorders: No Hx Family Neurologic Disorders: No Hx Family HEENT Disorders: No Hx Family Autoimmune Disorders: No Mother Adopted: No Family Member Ethnicity: Non- Living Status: Hx Family Cardiac Disorders: No Hx Family Respiratory Disorders: Yes Hx Family Cancer: No Hx Family GI Disorders: No Hx Family Endocrine Disorder: No Hx Family Neuromuscular Disorders: No Hx Family Neurologic Disorders: No Hx Family HEENT Disorders: No Hx Family Autoimmune Disorders: No Brother Hx Family GI Disorders: Yes (colitis) - Gastrointestinal Gastrointestinal: Present: constipation, nausea. Absent: abdominal pain, diarrhea, vomiting - Constitutional Constitutional: fatigue, no fever(s) - EENT Nose, mouth and throat: Absent: dysphagia, sore throat Additional Comment: nose bleed - Cardiovascular Cardiovascular ROS: Absent: chest pain, palpitations - Respiratory Respiratory IM: Present: dyspnea. Absent: cough, hemoptysis - Hematologic/Lymphatic Hematologic/Lymphatic pediatric: Present: other (Recent onset of nosebleed denies any previous episode of nasal bleed ) - Musculoskeletal Musculoskeletal ROS GI: Present: other (Unable to mobilize given her weight) - Integumentary Integumentary GI: Present: rash (Skin changes bilateral lower legs) - Endocrine Endocrine IM: Present: fatigue - Constitutional Vitals: Temp Pulse Resp BP Pulse Ox 98 F 60 19 136/55 95 03/01/19 07:40 03/01/19 07:40 03/01/19 07:40 03/01/19 07:40 03/01/19 07:40 General appearance: Present: A&O X 3, obese Exam: Morbidly obese BMI 97.8 - Head Head exam: Present: atraumatic, normal inspection - Eye Eye exam: Present: EOMI, sclera anicteric. Absent: conjunctival injection - ENT ENT exam: Present: mucous membranes moist, normal oropharynx - Respiratory Respiratory exam: Present: CTAB. Absent: rhonchi, wheezes - Cardiovascular Cardiovascular exam: Present: RRR, +S1, +S2 - GI/Abdominal GI/Abdominal exam: Present: hypoactive bowel sounds, soft. Absent: firm, guarding - Extremities Exam Extremities exam: Present: pedal edema, warm - Psychiatric Psychiatric exam: Present: flat affect, normal mood - Skin Skin exam: Present: erythema, rash (Appears to have lymphedema bilateral lower extremities with bullae on left lower leg) Results - Labs CBC & Chem 7: 03/01/19 02:31 03/01/19 02:31 Labs: Last Result 02/28/19 03/01/19 20:20 02:31 Calcium 8.4 L Stool Occult Blood Negative Entire Visit 03/01/19 02:31 Hgb 8.1 L Hct 28.1 L - ABG ABG results: ABG ABG pH 7.36 pH Units (7.32-7.45) 02/27/19 04:56 ABG pCO2 77 mmHg (35-45) H* 02/27/19 04:56 ABG pO2 69 mmHg (85-104) L 02/27/19 04:56 ABG O2 Saturation 92 % (95-98) L 02/27/19 04:56 - Impressions Impressions Echocardiogram Limited Views 02/28/19 14:42 Impressions: LVEF 50-55%. Mild concentric left ventricular hypertrophy. Grossly normal right ventricular size and function. Left Ventricular Wall Motion: Rest Echo Findings All wall segments showed normal motion. Findings: Study Quality * Technically sub-optimal due to poor echocardiographic windows. ECG Findings * Normal sinus rhythm. Left Ventricle * LVEF 50-55%. * Mild concentric left ventricular hypertrophy. Right Ventricle * RV not well visualized, grossly normal right ventricular size and function. Left Atrium * Normal left atrial size. Right Atrium * Right atrium is not well visualized. Consult Discharge Plan - Plan Referrals: NONE,PCP [Primary Care Provider] - <Reshma Lee - Last Filed: 03/01/19 17:42> Date of Encounter: 03/01/19 Time of Encounter: 14:00 - Time Spent With Patient Total time spent is greater than 50% in coordination of care (as documented) at patient's floor/unit and/or counseling patient: GI History of Present Illness - Data of Consult Requesting Physician: Barak Lyn MD - Consult Narrative History of present illness: Ms. Reynoso is a 63 year old female - Constitutional Vitals: Temp Pulse Resp BP Pulse Ox 98 F 57 18 141/58 97 03/01/19 07:40 03/01/19 16:56 03/01/19 16:56 03/01/19 16:56 03/01/19 16:56 Results - Labs CBC & Chem 7: 03/01/19 02:31 03/01/19 02:31 Labs: Last Result 03/01/19 03/01/19 02:31 10:42 Calcium 8.4 L Ferritin 79 Vitamin B12 1284 H Folate 9.1 Entire Visit 03/01/19 03/01/19 02:31 10:42 Ferritin 79 Folate 9.1 - ABG ABG results: ABG ABG pH 7.36 pH Units (7.32-7.45) 02/27/19 04:56 ABG pCO2 77 mmHg (35-45) H* 02/27/19 04:56 ABG pO2 69 mmHg (85-104) L 02/27/19 04:56 ABG O2 Saturation 92 % (95-98) L 02/27/19 04:56 - Attending Attestation I examined this patient and my medical decision-making was reviewed with the Resident Physician. I agree with the documented findings, disposition and treatment plan as described except to the extent set forth below. Patient seen. Denies any overt GI bleeding . on examination patient is morbidly obese. A: Patient morbidly obese with multiple comorbidities now with anemia does has a long-standing history of anemia, no overt GI bleeding. Rec: Medical management there is no acute indication for scopes the risk with the procedures more than the benefits
--- NOTE | 2019-03-01 10:51 | Internal Med Progress Note ---
Hospitalist Progress Note - Encounter Date of Encounter: 03/01/19 Time of Encounter: 09:15 - Subjective Interval History: No acute events overnight. Patient had large BM yesterday that did not appear to be bloody or melanotic. Denies any chest pain, abdominal pain, or N/V. No fever overnight - Exam Vitals: Temp Pulse Resp BP Pulse Ox 98 F 60 18 136/55 94 03/01/19 07:40 03/01/19 07:40 03/01/19 10:43 03/01/19 07:40 03/01/19 10:43 Exam: Vitals: Reviewed General: Morbidly obese white woman lying in bed in no acute distress. Chest: diminished lung sounds Heart: distant heart sounds, unable to appreciate any significant murmur Abdomen: Obese abdomen, soft and non-tender Extremities: No clubbing, cyanosis. Edematous. Neurological: Awake, alert and oriented to person, place and time. No focal deficits. - Assessment and Plan (1) Acute and chronic respiratory failure with hypercapnia Current Visit: Yes Status: Acute Assessment and Plan: Was initially transferred from nursing facility due to concern of hyperkalemia but was noted to be lethargic on arrival and ABG showed on chronic respiratory acidosis Pt has long-standing history of medication and BiPAP noncompliance. Also on multiple sedating agents No evidence of pneumonia or benito fluid overload on CXR Clinically improved with BiPAP, will continue to use when necessary at bedtime (2) Urinary tract infection Current Visit: Yes Status: Acute Assessment and Plan: Another incidental finding of leukocytosis of 27 in addition to urinalysis positive for moderate leukocyte esterase urine culture grew K. pneumoniae sen to cefazolin Clinically improving on IV Zosyn with normal WBC Today, will switch to keflex Follow-up on blood cultures (3) APRYL (acute kidney injury) Current Visit: Yes Status: Acute Assessment and Plan: Associated with UTI as above, creatinine downtrending Continue to hold off on Bumex (4) Anemia Current Visit: Yes Status: Acute Assessment and Plan: Baseline hemoglobin appears to be around 10-11, presented with 9.2 and dropped to 8.1 No signs and symptoms of GI bleed, FOBT -ve but workup shows iron deficiency anemia for PO supplementation at the time of discharge, given Venofer by GI continue PPI BID and hold off on Xarelto discussed with GI yesterday, for EGD/colonoscopy tomorrow (5) Morbid obesity with BMI of 70 and over, adult Current Visit: No Status: Chronic (6) Obesity hypoventilation syndrome Current Visit: No Status: Chronic Assessment and Plan: BiPAP as above for respiratory failure (7) A-fib Current Visit: No Status: Chronic Assessment and Plan: Xarelto on hold due to anemia continue cardizem (8) Diabetes mellitus Current Visit: No Status: Chronic Assessment and Plan: Low-dose sliding scale (9) NICOL (obstructive sleep apnea) Current Visit: No Status: Chronic DVT Prophylaxis: EPCD - Time Spent with Patient Total time spent is greater than 50% in coordination of care (as documented) at patient's floor/unit and/or counseling patient: 25 - 35 minutes Plan of Care Discussed with: patient Internal Medicine: Result - Labs CBC & Chem 7: 03/01/19 02:31 03/01/19 02:31 Labs: Short CBC 02/28/19 03/01/19 Range/Units 12:15 02:31 WBC 10.0 (4.3-11.1) K/mcL Hgb 9.0 L 8.1 L (11.5-15.4) g/dL Hct 30.7 L 28.1 L (35.3-44.9) % Plt Count 386 (140-400) K/mcL Neutrophils # 6.1 (1.6-8.9) K/mcL BMP 03/01/19 02:31 Sodium 141 Potassium 3.9 Chloride 95 L Carbon Dioxide 34 H BUN 63 H Creatinine 1.28 H Glucose 142 H Calcium 8.4 L - ABG Interpretation ABG results: ABG ABG pH 7.36 pH Units (7.32-7.45) 02/27/19 04:56 ABG pCO2 77 mmHg (35-45) H* 02/27/19 04:56 ABG pO2 69 mmHg (85-104) L 02/27/19 04:56 ABG O2 Saturation 92 % (95-98) L 02/27/19 04:56 - Impressions Impressions Echocardiogram Limited Views 02/28/19 14:42 Impressions: LVEF 50-55%. Mild concentric left ventricular hypertrophy. Grossly normal right ventricular size and function. Left Ventricular Wall Motion: Rest Echo Findings All wall segments showed normal motion. Findings: Study Quality * Technically sub-optimal due to poor echocardiographic windows. ECG Findings * Normal sinus rhythm. Left Ventricle * LVEF 50-55%. * Mild concentric left ventricular hypertrophy. Right Ventricle * RV not well visualized, grossly normal right ventricular size and function. Left Atrium * Normal left atrial size. Right Atrium * Right atrium is not well visualized. 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
[2019-03-01] MEDS: traMADol 50 MG TABLET PO PRN ×2 (11:12→17:05)
[2019-03-01 12:01] LABS: Folate 9.1 ng/mL (3.0-16.0)
[2019-03-01] MEDS: cephALEXin 500 MG CAPSULE PO SCH ×3 (14:11→19:31)
[2019-03-01] MEDS: Ondansetron 4 MG/2 ML VIAL IVP PRN (20:11)
[2019-03-02 04:59] LABS: Hematocrit 31.8 % (35.3-44.9); Hemoglobin 9.3 g/dL (11.5-15.4); Mean Corpuscular HGB Conc 29.2 g/dL (31.6-35.5); Mean Corpuscular Hemoglobin 28.4 pg (28.0-33.3); Mean Corpuscular Volume 97.2 fL (83.0-100.0); Mean Platelet Volume 11.1 fL (9.4-12.4); Platelet Count 387 K/mcL (140-400); Red Blood Count 3.27 M/mcL (3.82-4.97); White Blood Count 9.3 K/mcL (4.3-11.1)
[2019-03-02 05:11] LABS: Calcium 8.4 mg/dL (8.6-10.3); Potassium 4.2 mEq/L (3.5-5.1)
[2019-03-02] MEDS: Pantoprazole 40 MG VIAL IVP SCH (06:16)
[2019-03-02 07:26] VITALS: BP 150/60
--- NOTE | 2019-03-02 09:10 | Discharge Summary ---
- NOTES TO OUTPATIENT PROVIDER Notes to Outpatient Provider: Have a repeat cbc within a week of hospital discharge. H&H at dc 9.3&31.8 Orders not resulted at time of discharge: Pending orders 02/26/19 23:55 Culture,Blood [BC] Stat Date of Encounter: 03/02/19 Time of Encounter: 09:08 - Discharge Diagnosis (1) Acute and chronic respiratory failure with hypercapnia Priority: Primary Status: Resolved (2) Urinary tract infection Priority: Primary Status: Acute Qualifiers: Urinary tract infection type: site unspecified Hematuria presence: without hematuria Qualified Code(s): N39.0 - Urinary tract infection, site not specified (3) APRYL (acute kidney injury) Priority: Secondary Status: Resolved (4) Anemia Priority: Secondary Status: Chronic Qualifiers: Anemia type: unspecified type Qualified Code(s): D64.9 - Anemia, unspecified (5) Morbid obesity with BMI of 70 and over, adult Priority: Secondary Status: Chronic (6) Obesity hypoventilation syndrome Priority: Secondary Status: Chronic (7) A-fib Priority: Secondary Status: Chronic Qualifiers: Atrial fibrillation type: paroxysmal Qualified Code(s): I48.0 - Paroxysmal atrial fibrillation (8) Diabetes mellitus Priority: Secondary Status: Chronic Qualifiers: Diabetes mellitus type: type 2 Diabetes mellitus halfway insulin use: with halfway use Diabetes mellitus complication status: without complication Qualified Code(s): E11.9 - Type 2 diabetes mellitus without complications; 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 Reynoso is a 63 year old female morbidly obese woman with COPD, obstructive sleep apnea/obesity hypoventilation syndrome, venous thromboembolic disease and diabetes who was sent to emergency room from her long-term because routine blood work was drawn and reportedly was seen to have a potassium level of 6.4. On arrival here her serum chemistry revealed a potassium of 3.8 by lab work was also notable for a leukocyte count of 27. She was noted to become progressively more lethargic and fatigued so a blood gas was done showing a PCO2 of 93 with pH of 7.27. She was placed on BiPAP and 2 hours later the repeat ABG showed some improvement. Patient was admitted to the hospital due to acute on chronic hypercapnic respiratory failure, urinary tract infection. Patient was managed with noninvasive ventilation, and broad-spectrum IV antibiotics. During this admission patient was also found to have anemia, with negative fecal occult blood test. GI was consulted, recommended against EGD or colonoscopy. The patient high risk, due to body habitus, and no signs of active bleeding. Mary ent transfused 1 bag of IV iron, and recommended to follow-up with GI as an outpatient, and have a repeat CBC within a week of hospital discharge. Urine culture grew pansensitive: Klebsiella pneumonia. Blood cultures: No growth to date. Patient acute symptoms on presentation have resolved, and patient is hemodynamically stable to be discharged on oral antibiotics. Recommended BiPAP every time while sleeping. - Time Spent with Patient Total time spent providing and/or coordinating discharge services: Time spent: Greater than 30 minutes (35) - Discharge Medications Prescriptions: New cephALEXin [Keflex] 500 mg PO QID 7 Days #28 capsule Continued Ranitidine HCl [Heartburn Relief] 150 mg PO HS Allopurinol [Zyloprim 300 MG] 300 mg PO QAM Cyanocobalamin (B-12) [Vitamin B12] 1,000 mcg PO 0800 Docusate [Colace] 200 mg PO BID Rivaroxaban [Xarelto] 20 mg PO HS Albuterol Sulfate [Ventolin Hfa] 2 puff IH Q4H PRN PRN Reason: Shortness Of Breath Lactulose 20 gm PO DAILY PRN PRN Reason: Constipation Menthol [Biofreeze] 1 appl TP TID PRN PRN Reason: Muscle Pain Cholecalciferol (Vitamin D3) [Vitamin D3] 2,000 unit PO DAILY Polyethylene Glycol 3350 [MiraLax bowel prep] 17 gm PO DAILY PRN PRN Reason: Constipation Bumetanide [Bumex] 1 mg PO BID 365 Days tablet Ipratropium/Albuterol Neb [Duoneb] 3 ml IH Q4H PRN PRN Reason: Shortness Of Breath Tramadol HCl [Ultram] 50 mg PO TID PRN PRN Reason: Pain Gabapentin [Neurontin] 200 mg PO TID #30 capsule Diltiazem CD (24hr) [Cardizem CD] 180 mg PO QAM FLUoxetine HCl [Prozac] 20 mg PO DAILY Acetaminophen [Extra Strength Non-Aspirin] 500 mg PO Q6H PRN PRN Reason: Pain Insulin ASPART [Novolog Flexpen] 0 unit SQ ACHS Polyvinyl Alcohol/Povidone [Artificial Tears Drops] 1 drop OP DAILY PRN PRN Reason: Dry Eyes Levalbuterol Tartrate [Xopenex Hfa] 2 puff IH 0000,0600,1200,1800 Dulaglutide [Trulicity] 1.5 mg SQ TU Insulin Degludec [Tresiba Flextouch U-100] 40 unit SQ HS Insulin ASPART [Novolog Flexpen] 34 unit SQ BID Montelukast [Singulair] 10 mg PO HS Glimepiride [Amaryl] 4 mg PO BID Baclofen [Lioresal] 10 mg PO BID Carvedilol 12.5 mg PO BID 365 Days tab Isosorbide MONOnitrate (24 HR) [Imdur] 30 mg PO DAILY 365 Days tab.er.24h Home Medications: Ranitidine HCl [Heartburn Relief] 150 mg PO HS 01/18/16 [History] Acetaminophen [Extra Strength Non-Aspirin] 500 mg PO Q6H PRN 08/04/18 [History] Baclofen [Lioresal] 10 mg PO BID 08/04/18 [History] Dulaglutide [Trulicity] 1.5 mg SQ TU 08/04/18 [History] Glimepiride [Amaryl] 4 mg PO BID 08/04/18 [History] Insulin ASPART [Novolog Flexpen] 0 unit SQ ACHS 08/04/18 [History] Insulin ASPART [Novolog Flexpen] 34 unit SQ BID 08/04/18 [History] Insulin Degludec [Tresiba Flextouch U-100] 40 unit SQ HS 08/04/18 [History] Levalbuterol Tartrate [Xopenex Hfa] 2 puff IH 0000,0600,1200,1800 08/04/18 [History] Montelukast [Singulair] 10 mg PO HS 08/04/18 [History] Polyvinyl Alcohol/Povidone [Artificial Tears Drops] 1 drop OP DAILY PRN 08/04/18 [History] Albuterol Sulfate [Ventolin Hfa] 2 puff IH Q4H PRN 08/28/18 [History] Allopurinol [Zyloprim 300 MG] 300 mg PO QAM 08/28/18 [History] Cyanocobalamin (B-12) [Vitamin B12] 1,000 mcg PO 0800 08/28/18 [History] Docusate [Colace] 200 mg PO BID 08/28/18 [History] Lactulose 20 gm PO DAILY PRN 08/28/18 [History] Menthol [Biofreeze] 1 appl TP TID PRN 08/28/18 [History] Rivaroxaban [Xarelto] 20 mg PO HS 08/28/18 [History] Carvedilol 12.5 mg PO BID 365 Days tab 11/12/18 [Rx] Isosorbide MONOnitrate (24 HR) [Imdur] 30 mg PO DAILY 365 Days tab.er.24h 11/12/18 [Rx] Cholecalciferol (Vitamin D3) [Vitamin D3] 2,000 unit PO DAILY 11/13/18 [History] Polyethylene Glycol 3350 [MiraLax bowel prep] 17 gm PO DAILY PRN 11/13/18 [History] Bumetanide [Bumex] 1 mg PO BID 365 Days tablet 11/18/18 [Rx] Ipratropium/Albuterol Neb [Duoneb] 3 ml IH Q4H PRN 11/23/18 [History] Tramadol HCl [Ultram] 50 mg PO TID PRN 11/23/18 [History] Gabapentin [Neurontin] 200 mg PO TID #30 capsule 11/25/18 [Rx] Diltiazem CD (24hr) [Cardizem CD] 180 mg PO QAM 02/27/19 [History] FLUoxetine HCl [Prozac] 20 mg PO DAILY 02/27/19 [History] cephALEXin [Keflex] 500 mg PO QID 7 Days #28 capsule 03/02/19 [Rx] Allergies/Adverse Reactions: Allergy/AdvReac Type Severity Reaction Status Date / Time indomethacin AdvReac Hives Verified 02/27/19 16:23 Date of admission: 02/27/19 01:18 Primary care physician: PCP NONE Consults: 02/28/19 15:16 Consult to Gastroenterology [CONS] Routine Consulting Provider: Gastroenterology Sury Reason for Consult: TIFFANI Call Completed: Yes - Constitutional Vitals: Temp Pulse Resp BP Pulse Ox 97.4 F L 52 20 150/60 95 03/02/19 07:19 03/02/19 07:19 03/02/19 07:19 03/02/19 07:19 03/02/19 07:19 Exam: Vitals: Reviewed General: Morbid obese Alert and oriented x4. In no distress HEENT: EOM, pupils equal, round and reactive. Cardiovascular: Irregularly irregular, normal S1 & S2, no rubs, murmurs or gallops. Lungs: CTA b/l, no wheezes or crackles. Abdomen: Obese, soft, non-tender, no rigidity. Extremities: chronic skin changes. non-tenderness or warmth to touch. Neurological: No focal neurological abnormalities Rest of the physical exam is non contributory - Patient Status Disposition: Transfer SNF Condition: Fair Functional capacity at discharge: bed bound Overall status at discharge: patient is back to baseline - Discharge Instructions Follow Up With: NONE,PCP [Primary Care Provider] - - Diet and Activity Activity: wear oxygen at all times Diet: diabetic diet
--- NOTE | 2019-03-02 09:22 | Physician Discharge Referral ---
ExtendedCare Referral Info Transfer To: [facility] - Diagnosis (1) Acute and chronic respiratory failure with hypercapnia Priority: Primary Status: Resolved (2) Urinary tract infection Priority: Secondary Status: Acute (3) APRYL (acute kidney injury) Priority: Secondary Status: Resolved (4) Anemia Priority: Secondary Status: Chronic (5) Morbid obesity with BMI of 70 and over, adult Priority: Secondary Status: Chronic (6) Obesity hypoventilation syndrome Priority: Secondary Status: Chronic (7) A-fib Priority: Secondary Status: Chronic (8) Diabetes mellitus Priority: Secondary Status: Chronic (9) NICOL (obstructive sleep apnea) Priority: Secondary Status: Chronic Prognosis: Fair - Transfer Medications Prescriptions: cephALEXin [Keflex] 500 mg PO QID 7 Days #28 capsule Prescription Printed Home Medications: Ranitidine HCl [Heartburn Relief] 150 mg PO HS 01/18/16 [History] Acetaminophen [Extra Strength Non-Aspirin] 500 mg PO Q6H PRN 08/04/18 [History] Baclofen [Lioresal] 10 mg PO BID 08/04/18 [History] Dulaglutide [Trulicity] 1.5 mg SQ TU 08/04/18 [History] Glimepiride [Amaryl] 4 mg PO BID 08/04/18 [History] Insulin ASPART [Novolog Flexpen] 0 unit SQ ACHS 08/04/18 [History] Insulin ASPART [Novolog Flexpen] 34 unit SQ BID 08/04/18 [History] Insulin Degludec [Tresiba Flextouch U-100] 40 unit SQ HS 08/04/18 [History] Levalbuterol Tartrate [Xopenex Hfa] 2 puff IH 0000,0600,1200,1800 08/04/18 [History] Montelukast [Singulair] 10 mg PO HS 08/04/18 [History] Polyvinyl Alcohol/Povidone [Artificial Tears Drops] 1 drop OP DAILY PRN 08/04/18 [History] Albuterol Sulfate [Ventolin Hfa] 2 puff IH Q4H PRN 08/28/18 [History] Allopurinol [Zyloprim 300 MG] 300 mg PO QAM 08/28/18 [History] Cyanocobalamin (B-12) [Vitamin B12] 1,000 mcg PO 0800 08/28/18 [History] Docusate [Colace] 200 mg PO BID 08/28/18 [History] Lactulose 20 gm PO DAILY PRN 08/28/18 [History] Menthol [Biofreeze] 1 appl TP TID PRN 08/28/18 [History] Rivaroxaban [Xarelto] 20 mg PO HS 08/28/18 [History] Carvedilol 12.5 mg PO BID 365 Days tab 11/12/18 [Rx] Isosorbide MONOnitrate (24 HR) [Imdur] 30 mg PO DAILY 365 Days tab.er.24h 11/12/18 [Rx] Cholecalciferol (Vitamin D3) [Vitamin D3] 2,000 unit PO DAILY 11/13/18 [History] Polyethylene Glycol 3350 [MiraLax bowel prep] 17 gm PO DAILY PRN 11/13/18 [History] Bumetanide [Bumex] 1 mg PO BID 365 Days tablet 11/18/18 [Rx] Ipratropium/Albuterol Neb [Duoneb] 3 ml IH Q4H PRN 11/23/18 [History] Tramadol HCl [Ultram] 50 mg PO TID PRN 11/23/18 [History] Gabapentin [Neurontin] 200 mg PO TID #30 capsule 11/25/18 [Rx] Diltiazem CD (24hr) [Cardizem CD] 180 mg PO QAM 02/27/19 [History] FLUoxetine HCl [Prozac] 20 mg PO DAILY 02/27/19 [History] cephALEXin [Keflex] 500 mg PO QID 7 Days #28 capsule 03/02/19 [Rx] Allergies/Adverse Reactions: Allergy/AdvReac Type Severity Reaction Status Date / Time indomethacin AdvReac Hives Verified 02/27/19 16:23 - Respiratory Orders Oxygen / L per min Smoking Cessation: Smoking cessation has been advised. For more information, call the [place] Tobacco Quit Line at 0-714-XGCU-NOW. - Advance Directives Code Status: DNR-Comfort Care - Mobility Orders Bedrest - Rehabiliation Orders Rehab Potential: Poor Rehab Orders: Evaluation for Physical Therapy, Evaluation for Occupational Therapy - Diet Orders Regular CERTIFICATION: I certify that the transfer of the above named patient to an Extended Care Facility is necessary for the continuing treatment of the diagnosis listed. The above information is true and accurate reflection of patient's current condition. Confidential - Redisclosure prohibited without a patient's written consent.
[2019-03-02] MEDS: Isosorbide MONOnitrate (24 HR) 30 MG TAB.ER.24H PO SCH (10:53)
[2019-03-02] MEDS: Baclofen 10 MG TABLET PO SCH (10:53)
[2019-03-02] MEDS: FLUoxetine 20 MG CAPSULE PO SCH (10:53)
[2019-03-02] MEDS: cephALEXin 500 MG CAPSULE PO SCH (10:53)
[2019-03-02] MEDS: Diltiazem CD (24hr) 180 MG CAPSULE PO SCH (10:53)
[2019-03-02] MEDS: Insulin LISPRO 300 UNITS/3 ML VIAL SQ SCH (10:54)
== END 2019-03-02 16:59 | DRG 189 ==
LOC: 2NENU 21:56 → EMEROOARM 21:56 → SUATTDRO 02-27 01:18 → 2NENU 02-27 01:30
PROVIDERS: ADMIT Internal Medicine; ATTEND Internal Medicine

== ENCOUNTER 2019-06-07 21:29 | Inpatient (IN) ==
[2019-06-07 22:07] LABS: Hematocrit 36.7 % (35.3-44.9); Hemoglobin 10.5 g/dL (11.5-15.4); Immature Platelets 6.5 % (1.1-6.1); Mean Corpuscular HGB Conc 28.6 g/dL (31.6-35.5); Mean Corpuscular Hemoglobin 27.7 pg (28.0-33.3); Mean Corpuscular Volume 96.8 fL (83.0-100.0); Mean Platelet Volume 11.3 fL (9.4-12.4); Nucleated Red Blood Cells 0.6 /100 WBC (0); Platelet Count 278 K/mcL (140-400); Red Blood Count 3.79 M/mcL (3.82-4.97); Red Cell Distribution Width 16.7 % (11.5-14.5); White Blood Count 9.8 K/mcL (4.3-11.1)
[2019-06-07 22:30] LABS: Albumin 3.2 g/dL (3.5-5.7); Bilirubin,Total 0.2 mg/dL (0.3-1.0); Calcium 9.1 mg/dL (8.6-10.3); Globulin 3.3 g/dL (2.4-3.5); Potassium 5.1 mEq/L (3.5-5.1); Total Protein 6.5 g/dL (6.4-8.9)
[2019-06-07 22:38] LABS: Eosinophils # 0.4 K/mcL (0.0-0.6); Lymphocytes # 2.6 K/mcL (0.6-4.6); Monocytes # 0.4 K/mcL (0.0-1.3); Neutrophils # 6.5 K/mcL (1.6-8.9)
[2019-06-07 22:39] LABS: Anisocytosis 1+ (Not Present); Hypochromasia Present (Not Present); Platelet Estimate Normal (Normal)
[2019-06-07 23:21] LABS: Bilirubin,Urine Negative (Negative); Blood,Urine Large (Negative); Clarity,Urine Cloudy (Clear); Color,Urine Yellow (Yellow); Glucose,Urine (UA) Normal (Normal); Ketones,Urine Negative (Negative); Leukocyte Esterase,Urine Small (Negative); Nitrite,Urine Positive (Negative); Protein,Urine 30 mg/dL (Neg-Trace); Specific Gravity,Urine 1.015 (1.010-1.025); Urobilinogen,Urine Normal (Normal)
[2019-06-07 23:22] LABS: Bacteria,Urine Many per hpf (None-Few); Hyaline Casts,Urine None Seen per lpf (None-Few); RBC,Urine TNTC per hpf (0-3); Squamous Epithelial Cell,Urine Many per lpf (None-Few); WBC,Urine 30-50 per hpf (0-3)
[2019-06-08] MEDS ORDERED: cefTRIAXone 1,000 MG in Water for inj. (sterile) 10 ML IVP ONE (00:39)
[2019-06-08 08:22] LABS: Basophils % 0.8 %; Eosinophils % 1.8 %; Mean Platelet Volume 11.5 fL (9.4-12.4)
[2019-06-08 08:24] LABS: Basophils # 0.1 K/mcL (0.0-0.2); Eosinophils # 0.2 K/mcL (0.0-0.6); Hematocrit 38.4 % (35.3-44.9); Hemoglobin 10.7 g/dL (11.5-15.4); Immature Granulocytes % 2.2 % (0-4); Lymphocytes # 3.2 K/mcL (0.6-4.6); Mean Corpuscular HGB Conc 27.9 g/dL (31.6-35.5); Mean Corpuscular Hemoglobin 27.9 pg (28.0-33.3); Monocytes # 0.8 K/mcL (0.0-1.3); Monocytes % 8.6 %; Neutrophils # 4.7 K/mcL (1.6-8.9); Nucleated Red Blood Cells 0.7 /100 WBC (0); Platelet Count 294 K/mcL (140-400); Red Blood Count 3.84 M/mcL (3.82-4.97); Red Cell Distribution Width 16.7 % (11.5-14.5); Segmented Neutrophils % 51.6 %; White Blood Count 9.1 K/mcL (4.3-11.1)
[2019-06-08 08:28] LABS: INR 1.3; Prothrombin Time 14.5 Seconds (9.4-12.1)
[2019-06-08 08:44] LABS: Platelet Estimate Normal (Normal)
[2019-06-08 08:45] LABS: Anisocytosis 1+ (Not Present); Hypochromasia Present (Not Present); Macrocytosis Present (Not Present); Stomatocytes 2+ (Not Present)
[2019-06-08 08:46] LABS: Albumin 3.5 g/dL (3.5-5.7); Bilirubin,Total 0.3 mg/dL (0.3-1.0); Calcium 9.4 mg/dL (8.6-10.3); Globulin 3.4 g/dL (2.4-3.5); Potassium 5.3 mEq/L (3.5-5.1); Total Protein 6.9 g/dL (6.4-8.9)
[2019-06-08 08:58] LABS: Thyroid Stimulating Hormone 1.619 mcIU/mL (0.340-5.600)
[2019-06-08 09:12] LABS: ABG Base Excess 8 mEq/L (-2 to 3); ABG HCO3 42 mEq/L (21-27); ABG Oxygen Saturation 86 % (95-98); ABG PCO2 123 mmHg (35-45); ABG PH 7.14 pH Units (7.32-7.45); ABG PO2 73 mmHg (85-104); ABG TCO2 45 mEq/L (20-26)
[2019-06-08] MEDS ORDERED: Albumin 25% 25gram/100mL 25 GM/100 ML IV.SOLN IVPB ONE (09:23)
[2019-06-08] MEDS ORDERED: Bisacodyl 10 MG RECTAL SUPPOSITORY RC PRN (09:24)
[2019-06-08] MEDS ORDERED: Ipratropium/Albuterol Neb 3 ML IH PRN (09:24)
[2019-06-08] MEDS ORDERED: *HR* Metoprolol 5 MG/5 ML VIAL IVP PRN (09:26)
[2019-06-08] MEDS: Furosemide 40 MG/4 ML VIAL IVP SCH ×2 (10:15→20:38)
[2019-06-08] MEDS: Clotrimazole 1% CRM 15 GM TUBE TP SCH ×2 (13:24→20:39)
[2019-06-08 14:05] LABS: ABG Base Excess 9 mEq/L (-2 to 3); ABG HCO3 41 mEq/L (21-27); ABG Oxygen Saturation 71 % (95-98); ABG PCO2 102 mmHg (35-45); ABG PH 7.21 pH Units (7.32-7.45); ABG PO2 48 mmHg (85-104); ABG TCO2 44 mEq/L (20-26)
[2019-06-08] MEDS ORDERED: Ondansetron 4 MG/2 ML VIAL IVP PRN (14:43)
[2019-06-08] MEDS: Acetaminophen 325 MG TABLET PO PRN (17:46)
[2019-06-08] MEDS: carvediloL 6.25 MG TABLET PO SCH (20:38)
[2019-06-08] MEDS: Famotidine 20 MG TABLET PO SCH (20:38)
[2019-06-08] MEDS: *HR* Rivaroxaban 10 MG TABLET PO SCH (20:38)
[2019-06-09] MEDS: Acetaminophen 325 MG TABLET PO PRN ×3 (04:24→22:14)
[2019-06-09 05:14] LABS: Nucleated Red Blood Cells 0.8 /100 WBC (0)
[2019-06-09 05:15] LABS: Hematocrit 35.9 % (35.3-44.9); Mean Corpuscular HGB Conc 27.9 g/dL (31.6-35.5); Mean Corpuscular Hemoglobin 27.4 pg (28.0-33.3); Mean Corpuscular Volume 98.4 fL (83.0-100.0); Platelet Count 287 K/mcL (140-400); Red Blood Count 3.65 M/mcL (3.82-4.97); Red Cell Distribution Width 16.5 % (11.5-14.5); White Blood Count 7.9 K/mcL (4.3-11.1)
[2019-06-09 05:23] LABS: ABG Base Excess 12 mEq/L (-2 to 3); ABG HCO3 45 mEq/L (21-27); ABG Oxygen Saturation 91 % (95-98); ABG PCO2 111 mmHg (35-45); ABG PH 7.21 pH Units (7.32-7.45); ABG PO2 81 mmHg (85-104); ABG TCO2 48 mEq/L (20-26)
[2019-06-09 05:34] LABS: Albumin 3.3 g/dL (3.5-5.7); Albumin/Globulin Ratio 1.1 (1.1-2.2); Bilirubin,Total 0.3 mg/dL (0.3-1.0); Calcium 9.5 mg/dL (8.6-10.3); Total Protein 6.3 g/dL (6.4-8.9)
[2019-06-09 06:19] LABS: Eosinophils # 0.3 K/mcL (0.0-0.6); Lymphocytes # 1.4 K/mcL (0.6-4.6); Monocytes # 0.2 K/mcL (0.0-1.3); Reactive Lymphocytes Present (Not Present)
[2019-06-09 06:20] LABS: Stomatocytes 2+ (Not Present)
[2019-06-09 06:21] LABS: Platelet Estimate Normal (Normal)
[2019-06-09 06:48] LABS: ABG Base Excess 13 mEq/L (-2 to 3); ABG HCO3 45 mEq/L (21-27); ABG Oxygen Saturation 77 % (95-98); ABG PCO2 102 mmHg (35-45); ABG PH 7.25 pH Units (7.32-7.45); ABG PO2 52 mmHg (85-104); ABG TCO2 48 mEq/L (20-26); Blood Gas Modality AVAPS; Blood Gas VT 600 cc
[2019-06-09] MEDS: Cyanocobalamin (B-12) 1,000 MCG TABLET PO SCH (08:31)
[2019-06-09] MEDS: carvediloL 6.25 MG TABLET PO SCH ×2 (08:31→20:39)
[2019-06-09] MEDS: FLUoxetine 20 MG CAPSULE PO SCH (08:31)
[2019-06-09] MEDS: Cholecalciferol (D-3) 1,000 UNIT (25MCG) TABLET PO SCH (08:31)
[2019-06-09] MEDS: Clotrimazole 1% CRM 15 GM TUBE TP SCH ×2 (08:32→20:48)
[2019-06-09] MEDS: Diltiazem CD (24hr) 180 MG CAPSULE PO SCH (08:35)
[2019-06-09] MEDS ORDERED: NON-FORMULARY MEDICATION 1 EACH EACH (Fluoxetine Hcl [Fluoxetine Hcl] 40 MG) PO SCH (09:00)
[2019-06-09 09:13] LABS: Estimated Average Glucose 143 mg/dl
[2019-06-09] MEDS ORDERED: *HR* Dextrose 50 % in Water (Syg) 50 ML SYRINGE IVP PRN (10:25)
[2019-06-09] MEDS ORDERED: Dextrose Gel 15 GM/37.5 ML TUBE PO PRN ×2 (10:25)
[2019-06-09] MEDS ORDERED: D5% in Water 1,000 ML IVC PRN (10:25)
[2019-06-09] MEDS ORDERED: Insulin LISPRO 300 UNITS/3 ML VIAL SQ SCH (11:30)
[2019-06-09] MEDS: cefTRIAXone 1,000 MG in Water for inj. (sterile) 10 ML IVP SCH (11:39)
[2019-06-09] MEDS: Furosemide 40 MG/4 ML VIAL IVP SCH ×3 (15:18→21:15)
[2019-06-09] MEDS: Insulin LISPRO 300 UNITS/3 ML VIAL SQ SCH ×3 (15:31→22:13)
[2019-06-09] MEDS: MethylPREDNISolone 40 MG/ML VIAL IVP SCH (17:37)
[2019-06-09] MEDS: *HR* Rivaroxaban 10 MG TABLET PO SCH (20:39)
[2019-06-09] MEDS: Famotidine 20 MG TABLET PO SCH (20:39)
[2019-06-09] MEDS ORDERED: Insulin DETEMIR 100 UNIT/ML X5UNITS SQ SCH (21:00)
[2019-06-09] MEDS ORDERED: *HR* LORazepam 2 MG/ML VIAL IVP ONE (23:07)
[2019-06-10 02:20] LABS: Basophils # 0.1 K/mcL (0.0-0.2); Basophils % 0.9 %; Eosinophils % 0.2 %; Hematocrit 36.2 % (35.3-44.9); Hemoglobin 10.7 g/dL (11.5-15.4); Lymphocytes # 1.6 K/mcL (0.6-4.6); Lymphocytes % 24.9 %; Mean Corpuscular HGB Conc 29.6 g/dL (31.6-35.5); Mean Corpuscular Hemoglobin 27.6 pg (28.0-33.3); Mean Corpuscular Volume 93.3 fL (83.0-100.0); Mean Platelet Volume 11.7 fL (9.4-12.4); Monocytes # 0.1 K/mcL (0.0-1.3); Monocytes % 1.7 %; Neutrophils # 4.5 K/mcL (1.6-8.9); Nucleated Red Blood Cells 1.1 /100 WBC (0); Platelet Count 320 K/mcL (140-400); Red Blood Count 3.88 M/mcL (3.82-4.97); Red Cell Distribution Width 16.3 % (11.5-14.5); Segmented Neutrophils % 70.3 %; White Blood Count 6.4 K/mcL (4.3-11.1)
[2019-06-10 02:42] LABS: Calcium 9.6 mg/dL (8.6-10.3); Magnesium 2.2 mg/dL (1.6-2.6); Phosphorous 3.2 mg/dL (2.7-4.5); Potassium 5.1 mEq/L (3.5-5.1)
[2019-06-10 03:19] LABS: ABG Base Excess 16 mEq/L (-2 to 3); ABG HCO3 44 mEq/L (21-27); ABG Oxygen Saturation 88 % (95-98); ABG PCO2 74 mmHg (35-45); ABG PH 7.39 pH Units (7.32-7.45); ABG PO2 59 mmHg (85-104); ABG TCO2 46 mEq/L (20-26); Blood Gas Modality BIVENT
[2019-06-10] MEDS: MethylPREDNISolone 40 MG/ML VIAL IVP SCH ×2 (05:59→16:52)
[2019-06-10] MEDS: Diltiazem CD (24hr) 180 MG CAPSULE PO SCH (08:17)
[2019-06-10] MEDS: carvediloL 6.25 MG TABLET PO SCH ×2 (08:17→21:09)
[2019-06-10] MEDS: Furosemide 40 MG/4 ML VIAL IVP SCH ×2 (08:18→16:52)
[2019-06-10] MEDS: Cyanocobalamin (B-12) 1,000 MCG TABLET PO SCH (08:18)
[2019-06-10] MEDS: FLUoxetine 20 MG CAPSULE PO SCH (08:18)
[2019-06-10] MEDS: cefTRIAXone 1,000 MG in Water for inj. (sterile) 10 ML IVP SCH (08:18)
[2019-06-10] MEDS: Cholecalciferol (D-3) 1,000 UNIT (25MCG) TABLET PO SCH (08:18)
[2019-06-10] MEDS: Clotrimazole 1% CRM 15 GM TUBE TP SCH ×2 (08:22→21:09)
[2019-06-10] MEDS: Insulin DETEMIR 100 UNIT/ML X5UNITS SQ SCH ×2 (08:25→21:07)
[2019-06-10] MEDS: Insulin LISPRO 300 UNITS/3 ML VIAL SQ SCH ×4 (08:25→21:07)
[2019-06-10] MEDS ORDERED: *HR* LORazepam 2 MG/ML VIAL IVP ONE (20:14)
[2019-06-10] MEDS: Acetaminophen 325 MG TABLET PO PRN (21:08)
[2019-06-10] MEDS: Famotidine 20 MG TABLET PO SCH (21:09)
[2019-06-10] MEDS: *HR* Rivaroxaban 10 MG TABLET PO SCH (21:09)
[2019-06-11] MEDS: Acetaminophen 325 MG TABLET PO PRN (03:29)
[2019-06-11 03:53] LABS: Basophils % 0.4 %; Eosinophils % 0.2 %; Hematocrit 35.2 % (35.3-44.9); Hemoglobin 10.2 g/dL (11.5-15.4); Immature Granulocytes % 1.6 % (0-4); Lymphocytes # 1.7 K/mcL (0.6-4.6); Lymphocytes % 31.4 %; Mean Corpuscular Hemoglobin 27.9 pg (28.0-33.3); Mean Corpuscular Volume 96.2 fL (83.0-100.0); Mean Platelet Volume 11.5 fL (9.4-12.4); Monocytes # 0.3 K/mcL (0.0-1.3); Monocytes % 5.1 %; Neutrophils # 3.4 K/mcL (1.6-8.9); Nucleated Red Blood Cells 0.5 /100 WBC (0); Platelet Count 287 K/mcL (140-400); Red Blood Count 3.66 M/mcL (3.82-4.97); Red Cell Distribution Width 16.1 % (11.5-14.5); Segmented Neutrophils % 61.3 %; White Blood Count 5.5 K/mcL (4.3-11.1)
[2019-06-11 04:25] LABS: BUN/Creatinine Ratio 44 (6-26); Blood Urea Nitrogen 48 mg/dL (8-23); Carbon Dioxide 45 mEq/L (23-29); Chloride 94 mEq/L (98-107); Glucose 279 mg/dL (70-105); Magnesium 2.2 mg/dL (1.6-2.6); Osmolality,Calculated 319 (280-300); Phosphorous 3.4 mg/dL (2.7-4.5); Sodium 143 mEq/L (136-145); eGFR For African Americans > 60 (> 60); eGFR For Non-African Americans 50 (> 60)
[2019-06-11] MEDS: Insulin DETEMIR 100 UNIT/ML X5UNITS SQ SCH ×2 (09:38→20:59)
[2019-06-11] MEDS: Clotrimazole 1% CRM 15 GM TUBE TP SCH ×2 (09:38→20:52)
[2019-06-11] MEDS: predniSONE 20 MG TABLET PO SCH (09:40)
[2019-06-11] MEDS: FLUoxetine 20 MG CAPSULE PO SCH (09:40)
[2019-06-11] MEDS: Cholecalciferol (D-3) 1,000 UNIT (25MCG) TABLET PO SCH (09:40)
[2019-06-11] MEDS: Cyanocobalamin (B-12) 1,000 MCG TABLET PO SCH (09:41)
[2019-06-11] MEDS: Diltiazem CD (24hr) 180 MG CAPSULE PO SCH (09:41)
[2019-06-11] MEDS: carvediloL 6.25 MG TABLET PO SCH ×2 (09:41→20:58)
[2019-06-11] MEDS: cefTRIAXone 1,000 MG in Water for inj. (sterile) 10 ML IVP SCH (09:41)
[2019-06-11] MEDS: Furosemide 40 MG/4 ML VIAL IVP SCH ×2 (09:41→17:16)
[2019-06-11] MEDS: Insulin LISPRO 300 UNITS/3 ML VIAL SQ SCH ×7 (09:42→20:59)
[2019-06-11] MEDS: *HR* Rivaroxaban 10 MG TABLET PO SCH (20:58)
[2019-06-11] MEDS: Famotidine 20 MG TABLET PO SCH (20:58)
[2019-06-12 02:58] LABS: BUN/Creatinine Ratio 45 (6-26); Blood Urea Nitrogen 48 mg/dL (8-23); Carbon Dioxide 45 mEq/L (23-29); Chloride 97 mEq/L (98-107); Glucose 221 mg/dL (70-105); Magnesium 2.2 mg/dL (1.6-2.6); Osmolality,Calculated 307 (280-300); Phosphorous 3.9 mg/dL (2.7-4.5); Potassium 4.6 mEq/L (3.5-5.1); Sodium 139 mEq/L (136-145); eGFR For African Americans > 60 (> 60); eGFR For Non-African Americans 52 (> 60)
[2019-06-12] MEDS: Insulin LISPRO 300 UNITS/3 ML VIAL SQ SCH ×7 (10:12→21:37)
[2019-06-12] MEDS: Cyanocobalamin (B-12) 1,000 MCG TABLET PO SCH (10:20)
[2019-06-12] MEDS: Cholecalciferol (D-3) 1,000 UNIT (25MCG) TABLET PO SCH (10:20)
[2019-06-12] MEDS: Acetaminophen 325 MG TABLET PO PRN ×2 (10:20→21:44)
[2019-06-12] MEDS: predniSONE 20 MG TABLET PO SCH (10:21)
[2019-06-12] MEDS: FLUoxetine 20 MG CAPSULE PO SCH (10:21)
[2019-06-12] MEDS: carvediloL 6.25 MG TABLET PO SCH ×2 (10:21→21:36)
[2019-06-12] MEDS: Furosemide 40 MG/4 ML VIAL IVP SCH (10:22)
[2019-06-12] MEDS: cefTRIAXone 1,000 MG in Water for inj. (sterile) 10 ML IVP SCH (10:22)
[2019-06-12] MEDS: Insulin DETEMIR 100 UNIT/ML X5UNITS SQ SCH ×2 (10:23→21:37)
[2019-06-12] MEDS: Clotrimazole 1% CRM 15 GM TUBE TP SCH ×2 (10:23→21:42)
[2019-06-12] MEDS: Diltiazem CD (24hr) 180 MG CAPSULE PO SCH (12:08)
[2019-06-12 14:58] LABS: ABG Base Excess 20 mEq/L (-2 to 3); ABG HCO3 52 mEq/L (21-27); ABG Oxygen Saturation 91 % (95-98); ABG PCO2 108 mmHg (35-45); ABG PH 7.29 pH Units (7.32-7.45); ABG PO2 76 mmHg (85-104); ABG TCO2 > 50 mEq/L (20-26); Blood Gas Modality avaps; Blood Gas VT 500 cc
[2019-06-12 16:47] LABS: ABG Base Excess 21 mEq/L (-2 to 3); ABG HCO3 54 mEq/L (21-27); ABG Oxygen Saturation 92 % (95-98); ABG PCO2 104 mmHg (35-45); ABG PH 7.32 pH Units (7.32-7.45); ABG PO2 76 mmHg (85-104); ABG TCO2 > 50 mEq/L (20-26); Blood Gas Modality AVAPS; Blood Gas VT 500 cc
[2019-06-12] MEDS ORDERED: Saline Nasal Spray 44 ML BOTTLE NS PRN (19:42)
[2019-06-12] MEDS: *HR* Rivaroxaban 10 MG TABLET PO SCH (21:37)
[2019-06-12] MEDS: Cefdinir 300 MG CAPSULE PO SCH (21:37)
[2019-06-12] MEDS: Famotidine 20 MG TABLET PO SCH (21:37)
[2019-06-13] MEDS: Acetaminophen 325 MG TABLET PO PRN (03:14)
[2019-06-13 04:05] LABS: Hematocrit 36.8 % (35.3-44.9); Hemoglobin 10.8 g/dL (11.5-15.4)
[2019-06-13 04:46] LABS: BUN/Creatinine Ratio 48 (6-26); Blood Urea Nitrogen 45 mg/dL (8-23); Carbon Dioxide > 45 mEq/L (23-29); Chloride 93 mEq/L (98-107); Glucose 200 mg/dL (70-105); Osmolality,Calculated 317 (280-300); Phosphorous 3.4 mg/dL (2.7-4.5); Potassium 4.5 mEq/L (3.5-5.1); Sodium 145 mEq/L (136-145); eGFR For African Americans > 60 (> 60); eGFR For Non-African Americans > 60 (> 60)
[2019-06-13 07:18] VITALS: BP 173/79
[2019-06-13] MEDS ORDERED: hydrALAZINE 25 MG TABLET PO SCH (08:00)
[2019-06-13] MEDS: Cholecalciferol (D-3) 1,000 UNIT (25MCG) TABLET PO SCH (08:58)
[2019-06-13] MEDS: predniSONE 20 MG TABLET PO SCH (08:58)
[2019-06-13] MEDS: Cyanocobalamin (B-12) 1,000 MCG TABLET PO SCH (08:58)
[2019-06-13] MEDS: Diltiazem CD (24hr) 180 MG CAPSULE PO SCH (08:58)
[2019-06-13] MEDS: FLUoxetine 20 MG CAPSULE PO SCH (08:59)
[2019-06-13] MEDS: carvediloL 6.25 MG TABLET PO SCH (08:59)
[2019-06-13] MEDS: Insulin DETEMIR 100 UNIT/ML X5UNITS SQ SCH (08:59)
[2019-06-13] MEDS ORDERED: Furosemide 40 MG/4 ML VIAL IVP SCH (09:00)
[2019-06-13] MEDS: Cefdinir 300 MG CAPSULE PO SCH (09:00)
[2019-06-13] MEDS: Clotrimazole 1% CRM 15 GM TUBE TP SCH (09:06)
[2019-06-13] MEDS: Insulin LISPRO 300 UNITS/3 ML VIAL SQ SCH ×2 (09:06)
[2019-06-13 10:49] LABS: ABG Base Excess 18 mEq/L (-2 to 3); ABG HCO3 48 mEq/L (21-27); ABG Oxygen Saturation 95 % (95-98); ABG PCO2 88 mmHg (35-45); ABG PH 7.34 pH Units (7.32-7.45); ABG PO2 85 mmHg (85-104); ABG TCO2 > 50 mEq/L (20-26)
== END 2019-06-13 12:31 | DRG 291 ==
LOC: EMEROOARM 21:29 → 3BNU 21:29 → SUATTDRO 06-08 01:02 → 3BNU 06-08 01:15 → 2NNU 06-08 13:25 → SUATTDRO 06-09 11:32
PROVIDERS: ADMIT Internal Medicine; ATTEND Internal Medicine

== ENCOUNTER 2019-06-18 12:10 | Inpatient (IN) ==
[2019-06-18] MEDS ORDERED: Ondansetron 4 MG/2 ML VIAL IVP PRN (14:59)
[2019-06-18] MEDS ORDERED: Ipratropium/Albuterol Neb 3 ML IH PRN (15:12)
[2019-06-18] MEDS ORDERED: D5% in Water 1,000 ML IVC PRN (15:46)
[2019-06-18] MEDS ORDERED: Dextrose Gel 15 GM/37.5 ML TUBE PO PRN ×2 (15:46)
[2019-06-18] MEDS ORDERED: *HR* Dextrose 50 % in Water (Syg) 50 ML SYRINGE IVP PRN (15:46)
[2019-06-18 16:48] LABS: Calcium 8.9 mg/dL (8.6-10.3); Potassium 4.3 mEq/L (3.5-5.1); Troponin I 0.04 ng/mL (< 0.04)
[2019-06-18] MEDS: Insulin LISPRO 300 UNITS/3 ML VIAL SQ SCH ×2 (18:40→21:58)
[2019-06-18] MEDS ORDERED: INSULIN DEGLUDEC 40 UNIT SQ SCH (21:00)
[2019-06-18] MEDS: *HR* Rivaroxaban 10 MG TABLET PO SCH (21:51)
[2019-06-18] MEDS: carvediloL 6.25 MG TABLET PO SCH (21:51)
[2019-06-18] MEDS: Bumetanide 1 MG TABLET PO SCH (21:51)
[2019-06-18] MEDS: Insulin DETEMIR 100 UNIT/ML X5UNITS SQ SCH (21:51)
[2019-06-18] MEDS: Acetaminophen 325 MG TABLET PO PRN (21:55)
[2019-06-19 02:51] LABS: Red Cell Distribution Width 16.9 % (11.5-14.5)
[2019-06-19 02:52] LABS: Hematocrit 35.6 % (35.3-44.9); Mean Corpuscular HGB Conc 28.1 g/dL (31.6-35.5); Mean Corpuscular Hemoglobin 27.6 pg (28.0-33.3); Mean Corpuscular Volume 98.3 fL (83.0-100.0); Mean Platelet Volume 12.4 fL (9.4-12.4); Platelet Count 207 K/mcL (140-400); Red Blood Count 3.62 M/mcL (3.82-4.97); White Blood Count 8.9 K/mcL (4.3-11.1)
[2019-06-19 02:54] LABS: VBG HCO3 44 mEq/L (21-27); VBG PCO2 97 mmHg (41-51); VBG PH 7.27 pH Units (7.32-7.42); VBG PO2 182 mmHg (25-50)
[2019-06-19 03:12] LABS: Calcium 8.5 mg/dL (8.6-10.3); Magnesium 2.1 mg/dL (1.6-2.6); Potassium 4.6 mEq/L (3.5-5.1)
[2019-06-19] MEDS: Insulin LISPRO 300 UNITS/3 ML VIAL SQ SCH ×3 (11:01→21:10)
[2019-06-19] MEDS: FLUoxetine 20 MG CAPSULE PO SCH (11:23)
[2019-06-19] MEDS: Isosorbide MONOnitrate (24 HR) 30 MG TAB.ER.24H PO SCH (11:23)
[2019-06-19] MEDS: Diltiazem CD (24hr) 180 MG CAPSULE PO SCH (11:24)
[2019-06-19] MEDS: carvediloL 6.25 MG TABLET PO SCH ×2 (11:26→21:30)
[2019-06-19] MEDS: Acetaminophen 325 MG TABLET PO PRN (11:40)
[2019-06-19] MEDS ORDERED: Furosemide 40 MG/4 ML VIAL IVP ONE (15:53)
[2019-06-19] MEDS: Insulin DETEMIR 100 UNIT/ML X5UNITS SQ SCH (21:27)
[2019-06-19] MEDS: *HR* Rivaroxaban 10 MG TABLET PO SCH (21:31)
[2019-06-20 06:00] LABS: Hematocrit 32.9 % (35.3-44.9); Hemoglobin 9.6 g/dL (11.5-15.4); Mean Corpuscular HGB Conc 29.2 g/dL (31.6-35.5); Mean Corpuscular Hemoglobin 28.1 pg (28.0-33.3); Mean Corpuscular Volume 96.2 fL (83.0-100.0); Mean Platelet Volume 13.2 fL (9.4-12.4); Platelet Count 205 K/mcL (140-400); Red Blood Count 3.42 M/mcL (3.82-4.97); Red Cell Distribution Width 16.9 % (11.5-14.5); White Blood Count 8.8 K/mcL (4.3-11.1)
[2019-06-20 06:15] LABS: VBG HCO3 43 mEq/L (21-27); VBG PCO2 69 mmHg (41-51); VBG PO2 195 mmHg (25-50)
[2019-06-20 06:26] LABS: Magnesium 2.1 mg/dL (1.6-2.6); Potassium 4.6 mEq/L (3.5-5.1)
[2019-06-20] MEDS: Insulin LISPRO 300 UNITS/3 ML VIAL SQ SCH ×4 (09:44→22:42)
[2019-06-20] MEDS: Furosemide 40 MG/4 ML VIAL IVP SCH ×2 (09:45→17:30)
[2019-06-20] MEDS: carvediloL 6.25 MG TABLET PO SCH ×2 (09:45→22:41)
[2019-06-20] MEDS: Isosorbide MONOnitrate (24 HR) 30 MG TAB.ER.24H PO SCH (09:45)
[2019-06-20] MEDS: FLUoxetine 20 MG CAPSULE PO SCH (09:46)
[2019-06-20] MEDS: Diltiazem CD (24hr) 180 MG CAPSULE PO SCH (09:46)
[2019-06-20] MEDS: Insulin DETEMIR 100 UNIT/ML X5UNITS SQ SCH (22:41)
[2019-06-20] MEDS: *HR* Rivaroxaban 10 MG TABLET PO SCH (22:41)
[2019-06-21 02:55] LABS: VBG HCO3 45 mEq/L (21-27); VBG PCO2 56 mmHg (41-51); VBG PH 7.52 pH Units (7.32-7.42); VBG PO2 190 mmHg (25-50)
[2019-06-21] MEDS: Acetaminophen 325 MG TABLET PO PRN (02:57)
[2019-06-21 03:19] LABS: Hematocrit 32.3 % (35.3-44.9); Hemoglobin 9.4 g/dL (11.5-15.4); Mean Corpuscular HGB Conc 29.1 g/dL (31.6-35.5); Mean Corpuscular Hemoglobin 27.2 pg (28.0-33.3); Mean Corpuscular Volume 93.6 fL (83.0-100.0); Mean Platelet Volume 12.4 fL (9.4-12.4); Platelet Count 195 K/mcL (140-400); Red Blood Count 3.45 M/mcL (3.82-4.97); Red Cell Distribution Width 16.6 % (11.5-14.5); White Blood Count 7.4 K/mcL (4.3-11.1)
[2019-06-21 03:20] LABS: BUN/Creatinine Ratio 55 (6-26); Blood Urea Nitrogen 56 mg/dL (8-23); Calcium 8.9 mg/dL (8.6-10.3); Carbon Dioxide 45 mEq/L (23-29); Chloride 96 mEq/L (98-107); Glucose 139 mg/dL (70-105); Osmolality,Calculated 320 (280-300); Sodium 146 mEq/L (136-145); eGFR For African Americans > 60 (> 60); eGFR For Non-African Americans 55 (> 60)
[2019-06-21] MEDS: Insulin LISPRO 300 UNITS/3 ML VIAL SQ SCH ×2 (08:42→13:25)
[2019-06-21] MEDS: carvediloL 6.25 MG TABLET PO SCH (09:27)
[2019-06-21] MEDS: Diltiazem CD (24hr) 180 MG CAPSULE PO SCH (09:27)
[2019-06-21] MEDS: Isosorbide MONOnitrate (24 HR) 30 MG TAB.ER.24H PO SCH (09:27)
[2019-06-21] MEDS: Bumetanide 1 MG TABLET PO SCH (09:28)
[2019-06-21] MEDS: FLUoxetine 20 MG CAPSULE PO SCH (09:28)
[2019-06-21 13:15] VITALS: BP 166/63
[2019-06-21] MEDS ORDERED: *HR* Rivaroxaban 10 MG TABLET PO SCH (17:00)
[2019-06-22 10:22] LABS: ABG Base Excess 13 mEq/L (-2 to 3); ABG HCO3 47 mEq/L (21-27); ABG Oxygen Saturation 78 % (95-98); ABG PCO2 124 mmHg (35-45); ABG PH 7.19 pH Units (7.32-7.45); ABG PO2 58 mmHg (85-104); ABG TCO2 > 50 mEq/L (20-26)
[2019-06-22 10:24] LABS: ABG Base Excess 18 mEq/L (-2 to 3); ABG HCO3 51 mEq/L (21-27); ABG Oxygen Saturation 95 % (95-98); ABG PCO2 122 mmHg (35-45); ABG PH 7.23 pH Units (7.32-7.45); ABG PO2 97 mmHg (85-104); ABG TCO2 > 50 mEq/L (20-26)
== END 2019-06-21 16:32 | DRG 189 ==
LOC: 2NENU → SUATTDRO 14:31
PROVIDERS: ADMIT Internal Medicine; ATTEND Internal Medicine